=== PATIENT | female | born 1935 | race Caucasian/White ===

== ENCOUNTER → 2016-07-18 | Outpatient (CLI) | payer MEDICARE, OTHER ==
[~2016-07-18] MED LIST: AMIODARONE; BIMA2.5D4 OP; CEPH500C PO; DILT120C10 PO; DRON400T2 PO; HYDR-757 PO; LISI5TAB PO; PHEN100T17 PO; TRM50T PO; WRF5T PO
--- OUTSIDE RECORDS SUMMARY | 2016-07-18 10:29 | XMS REPORT | Continuity of Care Document ---
Author Author [facility] Organization [facility] Address Unknown Phone Unavailable Care Team Providers Care Senior Cytogenetic Technologist Name Role Phone Kwadwo Martinez PCP [phone] Source Comments Some departments are not documenting in the electronic medical record. If you do not see the information that you expected, contact Release of Information in the Health Information Management department at [phone] for further assistance in locating additional records.[facility] Active Allergies and Adverse Reactions Allergen Noted Date Severity Reactions Comments Demerol 08/24/2008 VOMITING Tetanus Vaccines And 08/24/2008 Reacted to skin test Toxoid Current Medications Prescription Sig. Disp. Refills Start End Date Status Date lisinopril (PRINIVIL; Take 5 mg by mouth twice Active ZESTRIL) 5 mg PO tablet daily. bimatoprost(+) (LUMIGAN) Insert or Apply 1 Drop to Active 0.03 % OP Drop right eye as directed at bedtime daily. warfarin (COUMADIN) 5 mg Take 5 mg by mouth daily. Active tablet diltiazem CD (CARDIZEM Take 120 mg by mouth Active CD) 120 mg capsule daily. dronedarone (MULTAQ) 400 Take 1 Tab by mouth twice 12 Tab 0 05/24/20 Active mg tablet daily with meals. 12 Active Problems Problem Noted Date Chronic anticoagulation 05/10/2012 Sleep apnea, obstructive 05/04/2012 Overview: 04-22-2012 Sleep study: Cardiac: The ECG was sinus may. The average HR while asleep was 57. She did exhibit paroxysmal narrow complex tachycardia. OSAS with positive sleep study. Obstructive sleep apnea on CPAP 05/04/2012 Overview: Sleep Study in [place] on 04/16/12 and report sent to us and Impression was: "moderate obstructive sleep apnea, CPAP was initiated.... Uterine prolapse 08/11/2011 Coronary artery disease (CAD) excluded 04/23/2010 Overview: 06/19--No significant CAD per report from Cardiac Cath by Dr. Lozoya -normal LVEF 65%, normal LVEDP LV function-normal a. 05/20 resting echo: Normal global LV systolic function. EF 50-55%. RBBB (right bundle branch block with left anterior fascicular block) 2009 Overview: Baseline right bundle branch block, left anterior bre-block with full P-R interval. Sinus bradycardia 04/23/2010 Overview: -aSxic Sinus Bradycardia Near-syncope 08/24/2008 Overview: Near syncope a. Episodes of near passing out -- concern for sinus node dysfunction versus AV block given baseline conduction disease and sinus bradycardia reported. b. 06/19 Holter monitor. No episodes of bradycardia c. 05/20 carotid Doppler: Minimal right atherosclerotic plaque without significant stenosis d. Carotid sinus massage by Drs. Lozoya and [place]: Both negative. e. 08/24/08 implantable looping recorder.Confirm ILR implanted. Continue to monitor. Sensitivity adjusted 09/18. 05/20 nonobstructive Carotid artery disease by carotid duplex. L ast Assessment & Plan: The patient denies any recent syncope. She tells me she has had dizzy spells all her life. We will continue to watch her carefully. Basal Cell Carcinoma of Skin HTN (hypertension) PAF (paroxysmal atrial fibrillation) (HCC) Overview: 1. Paroxysmal atrial fibrillation with RVR a. 06/19 event looping monitor triggered event. Went to ED and found in AFIB with RVR. Admit to ICU. b. Refuses Coumadin. (Patient has CHADS score of 2, therefore Coumadin recommended.) c. Taking enteric-coated aspirin. d. Pill in pocket with Cardizem CD 120 mg for heart rate greater than 120. e. 08/24/[address] [place] ILR implanted. Will continue to monitor for recurrent events. 2010 CHADS2 score of 2 L ast Assessment & Plan: She has had no further atrial fibrillation by symptoms or ILR check. I talked to her at length about atrial fibrillation and her CHADS2 score. Mrs. Day feels strongly she can feel her AF. Therefore, she doesn't feel anticoagulation is necessary at this point. We will continue to monitor her closely. Resolved Problems Problem Noted Date Resolved Date PAST MEDICAL HISTORY OF 03/26/2010 08/11/2011 Overview: Social History Tobacco Use Types Packs/Day Years Used Date Never Smoker Smokeless Tobacco: Never Used Alcohol Use Drinks/Week oz/Week Comments No Last Filed Vital Signs Vital Sign Reading Time Taken Blood Pressure 130/51 05/10/2012 1:41 PM CDT Pulse 66 05/10/2012 1:41 PM CDT Temperature 36.4 C (97.5 F) 05/10/2012 1:41 PM CDT Respiratory Rate - - Height 1.727 m (5' 8") 05/10/2012 8:15 AM CDT Weight 83.6 kg (184 lb 4.9 oz) 05/10/2012 8:15 AM CDT Body Mass Index 28.03 05/10/2012 8:15 AM CDT Oxygen Saturation 100% 05/10/2012 1:41 PM CDT Plan of Care Health Maintenance Due Date Last Done Comments Physical (Comprehensive) 1940 Exam Pertussis Vaccine 1944 Tetanus Vaccine 1950 Breast Cancer Screening 1973 Shingles Vaccine 1993 Osteoporosis Screening 1998 Prevnar/Pneumovax (#1) 1998 Influenza Vaccine 03/13/2015 Results from Last 3 Months Not on file
--- NOTE | 2016-07-18 11:37 | Diagnostic Imaging Report ---
PROCEDURE: MRI lumbar spine. TECHNIQUE: Multiplanar, multisequence MRI of the lumbar spine was performed without contrast. INDICATION: Right foot pain. FINDINGS: There is grade 1 spondylolisthesis of L4 over L5. The alignment of the posterior spinal line otherwise is satisfactory. There is fusion of L5 and S1 vertebra seen with pre-existing disc height loss at the intervertebral space suggested. There is a rudimentary disc between S1 and S2. There is no compression fracture. There is disc desiccation at all levels. There is moderate disc height loss at L3/4 and mild disc height loss at L4/5. There is no suspicious marrow signal abnormality. Mild marrow signal edema and adjacent soft tissue edema is seen around L4/5 facet joints bilaterally and appears to be secondary to degenerative changes. The cauda equina and conus medullaris appear grossly unremarkable. T12/L1: There is no disc herniation. There is mild facet hypertrophy. No spinal canal or foraminal stenosis. L1/2: No disc herniation. There is mild facet hypertrophy. No central canal, lateral recess or foraminal stenosis is seen. The right foramen demonstrates a 4 mm perineural cyst. L2/3: There is no significant disc herniation. There is mild facet hypertrophy. There is no central canal, lateral recess or foraminal stenosis however. L3/4: There is a mild diffuse disc bulge and moderate facet arthropathy bilaterally. There is no central canal stenosis and no significant stenosis in the lateral recess on either side. No foraminal stenosis. L4/5: There is a minimal disc bulge, grade 1 spondylolisthesis and moderate to severe facet arthropathy seen. There is central canal stenosis reducing the AP dimension of the canal to 8.5 mm and there is mild blunting of the lateral recess bilaterally. The neural foramina demonstrate minimal narrowing on both sides. L5/S1: Fused level demonstrates no remaining osteophytes or disc fragment identified. No central canal or lateral recess stenosis. No foraminal stenosis. At this level, there is suggestion of bilateral limited hemilaminectomy. IMPRESSION: There is grade 1 spondylolisthesis of L4 over L5 with prominent facet arthropathy bilaterally resulting in mild spinal canal stenosis. Dictated by: Dictated on workstation # [id number]
== END ==
LOC: RAD 10:26
PROVIDERS: ATTEND Orthopaedic Surgery
DX: M54.16 Radiculopathy, lumbar region (principal); M43.16 Spondylolisthesis, lumbar region
CPT/HCPCS: 72148

== ENCOUNTER → 2016-08-11 | Outpatient (CLI) | payer MEDICARE, OTHER ==
--- OUTSIDE RECORDS SUMMARY | 2016-08-11 15:04 | XMS REPORT | Continuity of Care Document ---
Author Author [facility] Organization [facility] Address Unknown Phone Unavailable Care Team Providers Care Manager Unix Name Role Phone Kwadwo Martinez PCP [phone] Source Comments Some departments are not documenting in the electronic medical record. If you do not see the information that you expected, contact Release of Information in the Health Information Management department at [phone] for further assistance in locating additional records.[facility] Active Allergies and Adverse Reactions Allergen Noted [...] on CPAP 05/04/2012 Overview: Sleep Study in [place], [place] on 04/16/12 and report sent to [...]
--- NOTE | 2016-08-14 12:26 | ECHOCARDIOGRAPHY REPORT ---
PROCEDURE PHYSICIAN: MAKI LOZOYA DATE OF PROCEDURE: 08/11/2016 TWO DIMENSIONAL ECHOCARDIOGRAM REPORT PRIMARY PHYSICIAN: Dr. Martinez OTHER PHYSICIAN: REFERRING PHYSICIAN: ORDERING PHYSICIAN: Dr. Lozoya INDICATION FOR THE PROCEDURE: Paroxysmal atrial fibrillation, sleep apnea, aortic valve sclerosis MEASUREMENTS DERIVED VALUES LV DIAMETER (LAX) NORMALS NORMALS Diastolic 4.6 (3.6-5.2) Eject. Fract. (60%+/-6%) Systolic (2.3-3.9) Diastolic Vol. % Shortening (0.22-0.42) Systolic Vol. Aortic Root 3. IVS THICKNESS Diastolic 1.2 (0.6-1.1) LVPW THICKNESS Diastolic 1.2 (0.6-1.1) LA DIAMETER Systolic 3.3 (2.1-3.7) DESCRIPTION: 2-dimensional echocardiography shows normal global left ventricular systolic function with normal wall motion. The aortic, mitral and tricuspid valve leaflets show good leaflet excursion. There is mild aortic valve sclerosis and calcification. The aortic valve leaflets show good leaflet excursion. Doppler imaging shows mild tricuspid regurgitation. Pulmonary systolic pressure is estimated to be approximately 40 to 45 mmHg. Peak pressure gradient across the aortic valve is approximately 22 mmHg with a mean gradient of 13 mmHg and the aortic valve area is calculated to be approximately 3 sq cm. Mitral inflow is suggestive of diastolic dysfunction of the left ventricle, grade 1. There is no evidence of significant intracardiac shunt on this transthoracic echocardiographic study. Inferior vena cava does not appear to be significantly dilated and does have intermittent inspiratory collapse. CONCLUSION: 1. Normal global left ventricular systolic function with an ejection fraction of approximately 65 to 70%. 2. Aortic valve sclerosis, mild, without evidence of significant valvular stenosis. 3. Mild tricuspid regurgitation. 4. Pulmonary artery systolic pressure estimated to be approximately 40 to 45 mmHg. 5. Mild diastolic dysfunction of the left ventricle. Job ID: [id number] Dictated Date: 08/14/2016 09:22:21 Weight Engineer Date: 08/14/2016 12:17:08 / samina
== END ==
LOC: CARD 15:01
PROVIDERS: ATTEND Internal Medicine Cardiovascular Disease
DX: I48.0 Paroxysmal atrial fibrillation (principal); G47.33 Obstructive sleep apnea (adult) (pediatric); I35.8 Other nonrheumatic aortic valve disorders; M54.5 Low back pain
CPT/HCPCS: 93306

== ENCOUNTER → 2017-02-26 | Outpatient (CLI) | payer MEDICARE, OTHER | LOC: RAD 10:07 | PROVIDERS: ATTEND Internal Medicine | DX: Z12.31 Encounter for screening mammogram for malignant neoplasm of breast (principal) | CPT/HCPCS: 77067 ==

== ENCOUNTER → 2017-07-17 | Outpatient (CLI) | payer MEDICARE, OTHER ==
[2017-07-17 10:41] LABS: BUN/CREATININE RATIO 31; CARBON DIOXIDE 24 MMOL/L (21-32); CHLORIDE 107 MMOL/L (98-107); CREATININE SERUM 0.86 MG/DL (0.60-1.30); GFR ESTIMATED > 60; GLUCOSE 103 MG/DL (70-105); POTASSIUM 4.2 MMOL/L (3.6-5.0); SODIUM 141 MMOL/L (135-145)
[2017-07-17] MEDS: NS 100 ML (IVPB) BAG IV ONE (11:16)
[2017-07-17] MEDS: CATHETER FLUSH 10 ML SYR IV PRN (11:16)
[2017-07-17] MEDS: IOHEXOL 350 MG/ML 100 ML (OMNIPAQUE 350) VIAL IV ONE (11:16)
--- NOTE | 2017-07-17 13:32 | Diagnostic Imaging Report ---
INDICATION: Evaluation for aortic aneurysm with known atherosclerotic disease. TECHNIQUE: Bolus IV contrast injection with angiographic technique was utilized. 2D and 3D MIP reconstruction was performed. FINDINGS: There is rib deformity laterally in the left lower chest with adjacent scarring. This was present on previous chest CT of 04/21/2016. There is good bolus enhancement of the aorta. Abdominal vessels enhance in a normal fashion. The proximal abdominal aorta measures 1.9 cm in diameter. The distal abdominal aorta measures 1.3 cm. There is scattered atherosclerotic disease throughout. There is no aortic dissection. 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 SMA shows mild atherosclerotic changes with stenosis of less than 50%. The inferior mesenteric artery shows atherosclerotic changes at the takeoff without significant stenosis. The liver shows a cyst measuring 2.7 cm in the midportion of the right lobe and a cyst in the left lobe measuring 8 mm. These are unchanged since previous CT chest exam. There are multiple faceted gallstones. Gallbladder is not dilated. Gallbladder wall is not thickened. Bile ducts appear normal. Pancreas is atrophic. The spleen is normal. The adrenal glands are normal. Kidneys appear normal. There is a cyst off the lower pole of the right kidney which is benign in nature measuring 1.5 cm. There are no calculi. No intra-abdominal adenopathy. The stomach and small bowel are not distended. The colon shows normal stool and gas pattern, where visualized. IMPRESSION: 1. Atherosclerotic changes of the aorta without evidence of aneurysm or dissection. 2. 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 3. Benign-appearing cyst in the liver, unchanged since previous CT chest. Also, old healed rib deformities on the left with adjacent pleural scarring in the left lung are stable. Dictated by: Dictated on workstation # [id number]
== END ==
LOC: RAD 09:45
PROVIDERS: ATTEND Nurse Practitioner Family
DX: I77.4 Celiac artery compression syndrome (principal); I70.0 Atherosclerosis of aorta; J98.4 Other disorders of lung; K76.89 Other specified diseases of liver; Z87.39 Personal history of other diseases of the musculoskeletal system and connective tissue
CPT/HCPCS: 36415; 74175; 80048

== ENCOUNTER → 2017-08-17 | Outpatient (CLI) | payer MEDICARE, OTHER ==
--- NOTE | 2017-08-17 15:02 | Diagnostic Imaging Report ---
EXAMINATION: Magnetic resonance imaging of the right ankle without contrast. DATE: August 17, 2017. COMPARISON: Right ankle radiographs October 22, 2015. INDICATION: 82-year-old female, right ankle pain. History of twisting injury 2 years ago. TECHNIQUE: Magnetic Resonance Imaging sequences were performed of the ankle without contrast. FINDINGS: TENDONS AND LIGAMENTS: The Achilles tendon is unremarkable. The posterior flexor tendons - tibialis posterior, flexor digitorum longus, flexor hallucis longus - are intact. The peroneal tendons - peroneus longus and peroneus brevis - are intact. The anterior extensor tendons - tibialis anterior, extensor hallucis longus and extensor digitorum longus tendons - are intact. The anterior and posterior syndesmotic ligaments are intact. The anterior talofibular, posterior talofibular, and calcaneofibular ligaments are intact. There are well-corticated areas of ossification in the distribution of the deep deltoid ligament complex compatible with sequela of remote prior injury. There is no identified tear of the deep deltoid ligament. The plantar fascia is intact. JOINTS: There is no tibiotalar joint effusion. There is a small posterior subtalar joint effusion. There is loss of normal fat attenuation within the sinus tarsi. There are prominent subcortical cystic changes adjacent to the sinus tarsi within the talus and calcaneus with adjacent prominent bone marrow edema. This is likely arthritic related. The individual ligaments within the sinus tarsi are difficult to identify. BONE: There is no acute fracture. There is no evidence of bone contusion or osteonecrosis. The talar dome is intact. BURSAE AND SOFT TISSUES: There is mild nonspecific lateral subcutaneous edema and edema in the pre-Achilles fat. There is diffuse fatty atrophy of the visualized musculature. IMPRESSION: 1. Loss of normal fat attenuation throughout the sinus tarsi with indistinct sinus tarsi ligaments. 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 2. Extensive degenerative-related marrow changes adjacent to the sinus tarsi. 3. Small posterior subtalar joint effusion. 4. Well-corticated areas of ossification in the distribution of the deep deltoid ligament compatible with sequela of remote prior injury. The deltoid ligament complex is otherwise intact. Intact low lateral ankle ligament complex and syndesmotic ligaments. 5. No acute fracture. Intact talar dome. 6. Intact tendons. 7. Diffuse fatty atrophy of the visualized musculature. This may potentially reflect polyneuropathy. Dictated by: Dictated on workstation # [id number]
== END ==
LOC: RAD 13:05
PROVIDERS: ATTEND Podiatrist Foot & Ankle Surgery
DX: S93.601A Unspecified sprain of right foot, initial encounter (principal); M67.873 Other specified disorders of tendon, right ankle and foot; M62.571 Muscle wasting and atrophy, not elsewhere classified, right ankle and foot; M19.071 Primary osteoarthritis, right ankle and foot; M76.61 Achilles tendinitis, right leg; Z87.828 Personal history of other (healed) physical injury and trauma
CPT/HCPCS: 73721

== ENCOUNTER 2017-10-22 05:35 | Outpatient (CLI) | payer MEDICARE, OTHER ==
[~2017-10-22] VITALS: Ht 172.7 cm; Wt 90.7 kg
[2017-10-22] MEDS ORDERED: WARF5TAB PO (10:23)
[2017-10-22] MEDS ORDERED: LISI-556 PO (10:23)
[2017-10-22] MEDS ORDERED: DILT180C90 PO (10:23)
[2017-10-22] MEDS ORDERED: BIMA2.5D4 OP (10:23)
== END 2017-10-22 10:29 ==
LOC: PREOP 05:35
PROVIDERS: ATTEND Surgery
DX: Z01.818 Encounter for other preprocedural examination (principal); Z12.11 Encounter for screening for malignant neoplasm of colon; Z80.0 Family history of malignant neoplasm of digestive organs

== ENCOUNTER 2017-10-30 11:22 | Day surgery (SDC) | payer MEDICARE, OTHER ==
[~2017-10-30] VITALS: Ht 172.7 cm; Wt 90.7 kg
[~2017-10-30 11:22] MED LIST changes: +DILT180C90 PO; +LISI-556 PO; +WARF5TAB PO
[2017-10-30] MEDS ORDERED: NS IV 500 ML 500 ML ONE (11:28)
[2017-10-30] MEDS ORDERED: NS IV 500 ML 500 ML IV PRN (11:54)
[2017-10-30 11:59] VITALS: BP 135/50
[2017-10-30] MEDS ORDERED: HURRICAINE EXT TUBE (BENZOCAINE) XX PRN (12:00)
[2017-10-30] MEDS ORDERED: LIDOCAINE JELLY 2% (XYLOCAINE) 5 ML TUBE MM PRN (12:00)
--- NOTE | 2017-10-30 12:18 | Progress Note-Pre Operative ---
Pre-Operative Progress Note H&P Reviewed The H&P was reviewed, patient examined and no changes noted. Date Seen by Provider: Oct 30, 2017 Time Seen by Provider: 11: Date H&P Reviewed: Oct 30, 2017 Time H&P Reviewed: :30 Pre-Operative Diagnosis: GERD, screening colonoscopy DEIDRA LORD MD Oct 30, 2017 12:18 pm
--- NOTE | 2017-10-30 12:18 | Conscious Sedation/ASA ---
Conscious Sedation Pre-Proced Time Reviewed: 11:30 ASA Class: 2 Airway Mallampati Classification: ([place] appropriate class) I. II. III, IV Lungs Heart ASA score ASA 1: a normal healthy patient ASA 2: a patient with a mild systemic disease (mid diabetes, controlled hypertension, obesity ASA 3: a patient with a severe systemic disease that limits activity (angina , COPD, prior Myocardial infarction) ASA 4: a patient with an incapacitating disease that is a constant threat to life (CHF, renal failure) ASA 5: a moribund patient not expected to survive 24 hrs. (ruptured aneurysm) ASA 6: a declared brain patient whose organs are being harvested. For emergent operations, add the letter E after the classification Grade 2 Sedation Plan: Analgesia, Amnesia, Plan communicated to team members, Discussed options with patient/fam, Discussed risks with patient/fam Note The patient is an appropriate candidate to undergo the planned procedure, sedation, and anesthesia. The patient immediately re-assessed prior to indication. DEIDRA LORD MD Oct 30, 2017 12:17 pm
[2017-10-30] MEDS ORDERED: HYDROcodone/APAP 5 MG/325 MG (LORTAB) TAB PO PRN (12:30)
[2017-10-30] MEDS ORDERED: ONDANSETRON 4 MG/2 ML (SDV) Z0FRAN IV PRN (12:30)
[2017-10-30] MEDS ORDERED: ACETAMINOPHEN 325 MG TABLET/CAPLET (TYLENOL) PO PRN (12:30)
[2017-10-30] MEDS ORDERED: morphine INJ 10 MG/ML 1ML (SYR OR VIAL) IV PRN (12:30)
[2017-10-30] MEDS ORDERED: fentaNYL INJECTION 100 MCG/2 ML AMP ONE (12:34)
[2017-10-30] MEDS ORDERED: MIDAZOLAM 2 MG/2 ML (VERSED) VIAL ONE ×4 (12:34)
[2017-10-30] MEDS ORDERED: LIDOCAINE JELLY 2% (XYLOCAINE) 5 ML TUBE ONE (12:35)
[2017-10-30] MEDS ORDERED: HURRICAINE EXT TUBE (BENZOCAINE) ONE (12:35)
[2017-10-30] MEDS: fentaNYL INJECTION 100 MCG/2 ML AMP IVP PRN ×2 (12:55→13:45)
[2017-10-30] MEDS: MIDAZOLAM 2 MG/2 ML (VERSED) VIAL IVP PRN ×4 (13:00→13:40)
--- NOTE | 2017-10-30 14:07 | Progress Note-Post Operative ---
Post-Operative Progess Note Surgeon (s)/Environmental Sampling Technician (s) Surgeon DEIDRA LORD MD Environmental Sampling Technician: none Pre-Operative Diagnosis GERD, screening colonoscopy Post-Operative Diagnosis distal esophageal stricture, reflux esophagitis(class B), no recurrent HH, mild gastritis. chronic stage 2 ext and int hemorrhoids. Procedure & Operative Findings Date of Procedure 10/30/17 Procedure Performed/Findings EGD with bx and balloon dilatation. chronic stage 2 ext and int hemorrhoids. Anesthesia Type CS Estimated Blood Loss Estimated blood loss (mL): minimal Specimens/Packing Specimens Removed GE jxn, antrum DEIDRA LORD MD Oct 30, 2017 2:07 pm
--- NOTE | 2017-10-30 14:08 | Discharge Inst-Surgical ---
D/C Lap Instructions-POP Follow Up 5 yrs or PRN Activity as tolerated High Fiber Diet 25g or more per day Avoid Alcohol, Caffeine, Spicy [place] and Acid foods. Drink 64 fluid oz or more of fluids per day. Symptoms to Report: Fever over 101 degree F, Nausea/Vomiting If any problems/questions: Contact your physician or go to Emergency Room DEIDRA LORD MD Oct 30, 2017 2:08 pm
[2017-10-30 14:10] VITALS: BP 131/60
[2017-10-30 14:49] VITALS: BP 130/67
[2017-10-30 14:54] VITALS: BP 130/67
--- NOTE | 2017-10-30 23:45 | OPERATIVE REPORT ---
DATE OF SERVICE: 10/30/2017 ATTENDING PRIMARY CARE PHYSICIAN: Dr. Martinez. PREOPERATIVE DIAGNOSES: Dysphagia, history of gastroesophageal reflux disease, screening colonoscopy with a family history of colon cancer. POSTOPERATIVE DIAGNOSES: Distal esophageal stricture, reflux esophagitis class B, no recurrent hiatal hernia, mild gastritis, chronic stage II external and internal hemorrhoids. Remainder of the rectum and colon were normal. PROCEDURE: EGD with biopsy and balloon dilatation. Colonoscopy. SURGEON: Dr. Lord. ANESTHESIA: Conscious sedation. ESTIMATED BLOOD LOSS: Minimal. FINDINGS: EGD, distal esophageal stricture, reflux esophagitis class B, no recurrent hiatal hernia, mild gastritis. Colonoscopy, chronic stage II external and internal hemorrhoids, not actively edematous or inflamed and no bleeding. The rectum and colon were normal and no polyps identified. DISPOSITION: The patient tolerated the procedure well. INDICATIONS: The patient is an 82-year-old female known to us. She was initially seen in 2013 for screening colonoscopy and family history of colon cancer. She was found to have moderate external and internal hemorrhoids; however, no other abnormalities. She is in need of a followup colonoscopy. She states for the most part she is doing well however, has had some constipation which is worse in the past few months. She also has had an issue with dysphagia which comes and goes. She reports that this has bothered her recently. She has undergone a hiatal hernia repair as well as previous balloon dilatations from an esophageal stricture. She reports that now she is symptomatic and does have dysphagia with epigastric fullness sensation as well as pressure. The patient was brought to the endoscopy suite, laid in the left lateral decubitus position. After adequate IV pain and sedative medications and conscious sedation anesthesia, the mouthpiece was applied. Endoscope was placed in the mouth, visualizing the pharynx and hypopharyngeal region. Vocal cords, epiglottis and vallecula identified and appeared to be normal. The endoscope was then gently intubated at the esophageal opening. Esophagus insufflated. Endoscope was then advanced to the first, second and third portions of the esophagus at the level of the GE junction, a reflux esophagitis class B identified. There were no ulcers or strictures identified in this region. There were no ulcers identified; however, there was a distal esophageal stricture identified. A biopsy was taken of the GE junction with forceps with visualization of good hemostasis. The endoscope was then advanced into the stomach and endoscope retroflexed visualizing no recurrent hiatal hernia with what appears to be an intact previous antireflux procedure. There was a mild gastritis, no ulcers, polyps or any neoplasms throughout the stomach or pylorus. A biopsy was taken of the stomach antrum for H. pylori with visualization of good hemostasis. Endoscope was then advanced to the pylorus and the first and second portion of the duodenum, which appeared normal with no distal obstructions. We then proceeded with dilatation of the distal esophageal stricture. A CRE fixed guidewire balloon was placed into the stomach and then pulled back to the area of the stricture. We first proceeded with 3 atmospheres of pressure with mild resistance. We then proceeded to 4 atmospheres of pressure with moderate resistance, which was approximately 18 to 19 mm in luminal diameter. We left this in place for approximately 60 seconds and then desufflated the balloon. Good hemostasis was observed as well as no mucosal tears. Endoscope was then slowly withdrawn while taking a second look and suctioning of residual air with no additional findings. The patient tolerated this portion of the procedure well. We will recommend continued medical management with small and more frequent meals, avoidance of eating at night as well as head elevation while lying supine. She also needs to avoid caffeinated beverages, spicy, greasy and acidic foods. Under the same conscious sedation anesthesia, we then proceeded with colonoscopy portion of the procedure. A digital rectal examination was performed which revealed stage II chronic external and internal hemorrhoids, not actively edematous nor inflamed and no bleeding. Normal sphincter tone was felt and there were no palpable masses. The endoscope was then intubated to the anus, rectum gently insufflated. The endoscope was then advanced to the [facility] in the rectum with no polyps or any neoplasms identified. We then proceeded through the sigmoid colon where no diverticulosis identified. The endoscope was then advanced to the remainder of the descending, transverse and ascending colon to the cecum. These segments were normal. There were no polyps or any neoplasms identified throughout the colon or rectum. The endoscope was then slowly withdrawn while taking a second look and suctioning of residual air with no additional findings. The patient tolerated the procedure well. We will recommend a high fiber diet with at least 25 grams of fiber per day to promote soft stools on a daily basis and prevent constipation. We will recommend a followup colonoscopy in 5 years. Job ID: [id number] DocumentID: [id number] Dictated Date: 10/30/2017 14:03:58 Radial Drill Press Operator For Plastic Date: 10/30/2017 23:44:41 Dictated By: DEIDRA LORD MD
== END 2017-10-30 14:55 | disposition home or self-care (01) ==
LOC: ENDO 11:22
PROVIDERS: ATTEND Surgery
DX: Z12.11 Encounter for screening for malignant neoplasm of colon (principal); K64.1 Second degree hemorrhoids; K22.2 Esophageal obstruction; K21.0 Gastro-esophageal reflux disease with esophagitis; K29.70 Gastritis, unspecified, without bleeding; Z80.0 Family history of malignant neoplasm of digestive organs; K59.00 Constipation, unspecified; I48.91 Unspecified atrial fibrillation; I10 Essential (primary) hypertension; G47.30 Sleep apnea, unspecified; Z79.01 Long term (current) use of anticoagulants; Z79.899 Other long term (current) drug therapy
CPT/HCPCS: 43239; 43249; G0105

== ENCOUNTER 2018-03-05 13:32 | Outpatient (RCR) | payer MEDICARE, OTHER ==
[~2018-03-05 13:32] MED LIST changes: +BIMA2.5D4 OD; +HYDR-4226 PO; -HYDR-757 PO
[2018-03-22] MEDS ORDERED: WARF-48 PO (08:54)
[2018-03-22] MEDS ORDERED: DILT180C54 PO (08:54)
[2018-03-22] MEDS ORDERED: MULT-985 PO (08:56)
[2018-03-22] MEDS ORDERED: MECL-106 PO (13:42)
== END 2018-04-08 11:10 | disposition home or self-care (01) ==
PROVIDERS: ATTEND Podiatrist Foot & Ankle Surgery
DX: M19.071 Primary osteoarthritis, right ankle and foot (principal); G57.51 Tarsal tunnel syndrome, right lower limb

== ENCOUNTER 2018-03-20 08:22 | Observation (INO) | payer MEDICARE, OTHER ==
[~2018-03-20] VITALS: Ht 172.7 cm; Wt 89.4 kg
[2018-03-20 09:00] LABS: BASOPHILS % (AUTO) 0 % (0-10); EOSINOPHILS # (AUTO) 0.2 10^3/uL (0.0-0.3); EOSINOPHILS % (AUTO) 3 % (0-10); HEMATOCRIT 38 % (35-52); HEMOGLOBIN 12.7 G/DL (11.5-16.0); LYMPHOCYTES # (AUTO) 0.9 X 10^3 (1.0-4.0); LYMPHOCYTES % (AUTO) 16 % (12-44); MEAN CORPUSCULAR HEMOGLOBIN 29 PG (25-34); MEAN CORPUSCULAR HGB CONC 33 G/DL (32-36); MEAN CORPUSCULAR VOLUME 88 FL (80-99); MEAN PLATELET VOLUME 11.6 FL (7.4-10.4); MONOCYTES # (AUTO) 0.4 X 10^3 (0.0-1.0); MONOCYTES % (AUTO) 7 % (0-12); NEUTROPHILS # (AUTO) 4.4 X 10^3 (1.8-7.8); NEUTROPHILS % (AUTO) 74 % (42-75); PLATELET COUNT 164 10^3/uL (130-400); RED BLOOD COUNT 4.35 10^6/uL (4.35-5.85); RED CELL DISTRIBUTION WIDTH 13.7 % (10.0-14.5); WHITE BLOOD COUNT 5.9 10^3/uL (4.3-11.0)
[2018-03-20 09:17] LABS: ALANINE AMINOTRANSFERASE 14 U/L (0-55); ALBUMIN 3.9 GM/DL (3.2-4.5); ALKALINE PHOSPHATASE 82 U/L (40-136); BILIRUBIN,TOTAL 0.8 MG/DL (0.1-1.0); BUN/CREATININE RATIO 34; CALCIUM 9.2 MG/DL (8.5-10.1); CARBON DIOXIDE 22 MMOL/L (21-32); CHLORIDE 111 MMOL/L (98-107); GFR ESTIMATED > 60; GLUCOSE 109 MG/DL (70-105); SODIUM 142 MMOL/L (135-145); TOTAL PROTEIN 6.9 GM/DL (6.4-8.2)
[2018-03-20] MEDS ORDERED: ONDANSETRON 4 MG/2 ML (SDV) Z0FRAN IVP ONE (10:15)
[2018-03-20 10:17] LABS: BILIRUBIN,URINE NEGATIVE (NEGATIVE); CLARITY,URINE CLEAR; COLOR,URINE YELLOW; GLUCOSE, URINE (UA) NEGATIVE (NEGATIVE); KETONES,URINE NEGATIVE (NEGATIVE); LEUKOCYTE ESTERASE ,URINE NEGATIVE (NEGATIVE); NITRITE,URINE NEGATIVE (NEGATIVE); PH,URINE 5 (5-9); PROTEIN,URINE NEGATIVE (NEGATIVE); UROBILINOGEN,URINE NORMAL (NORMAL)
[2018-03-20] MEDS: NS IV 1000 ML 1,000 ML IV SCH ×2 (10:18→20:26)
[2018-03-20 10:31] LABS: BACTERIA,URINE NEGATIVE /HPF; SQUAMOUS EPITHELIAL CELL,UR RARE /HPF
--- NOTE | 2018-03-20 11:05 | ED General ---
General Chief Complaint: Dizziness/Syncope Stated Complaint: DIZZY/NAUSEA Nursing Triage Note: ARRIVED VIA WC TO ROOM 05. STATES SHE WOKE UP THIS AM WITH DIZZINESS ET NAUSEA AT 0600 THIS AM. STATES SHE WOKE UP AT 0100 AND WAS FINE THEN. Nursing Sepsis Screen: No Definite Risk Source of Information: Patient Exam Limitations: No Limitations History of Present Illness Date Seen by Provider: Mar 20, 2018 Time Seen by Provider: 11:04 Initial Comments The patient's an 82-year-old white female who was awakened at approximately 0600 this morning with a sense of terrible dizziness and nausea. She had difficulty sitting up and when she attempted to get to the commode she was very unsteady on her feet. This has persisted and she is continued to have nausea. She has chronic atrial fibrillation and takes Coumadin. She reports that her most recent INR was 4+. Allergies and Home Medications Allergies Coded Allergies: Tetanus Vaccines and Toxoid (Unverified Allergy, Unknown, 10/22/17) meperidine (Unverified Adverse Reaction, Mild, VOMITING, 10/22/17) Home Medications Bimatoprost 2.5 Ml Drops, 2.5 ML OP DAILY, (Reported) Diltiazem HCl 180 Mg Cap.er.24h, 180 MG PO DAILY, (Reported) Lisinopril 5 Mg Tablet, 10 MG PO DAILY, (Reported) Warfarin Sodium 5 Mg Tablet, 5 MG PO DAILY, (Reported) Patient Home Medication List Home Medication List Reviewed: Yes Review of Systems Review of Systems Constitutional: see HPI EENTM: no symptoms reported Respiratory: no symptoms reported Cardiovascular: no symptoms reported Gastrointestinal: no symptoms reported Genitourinary: no symptoms reported Musculoskeletal: no symptoms reported Skin: no symptoms reported Psychiatric/Neurological: No Symptoms Reported Hematologic/Lymphatic: No Symptoms Reported Immunological/Allergic: no symptoms reported Past Xhqcoww-Kzntuz-Vhxxlr Hx Patient Social History Alcohol Use: Denies Use Recreational Drug Use: No Smoking Status: Never a Smoker Recent Foreign Travel: No Contact w/Someone Who Travel: No Recent Infectious Disease Expo: No Recent Hopitalizations: No Immunizations Up To Date Date of Pneumonia Vaccine: Aug 21, 2009 Seasonal Allergies Seasonal Allergies: No Past Medical History Surgeries: Yes (carpel tunnel, hiatal hernia, skin ca removed, implanted recorder for heart) Hysterectomy, Orthopedic Respiratory: Yes Sleep Apnea Currently Using CPAP: Yes Cardiac: Yes Atrial Fibrillation, Hypertension Neurological: No Reproductive Disorders: No Sexually Transmitted Disease: No HIV/AIDS: No UTI-Chronic Gastrointestinal: Yes Chronic Constipation Musculoskeletal: Yes (MILD) Arthritis Endocrine: No Loss of Vision: Bilateral Cancer: Yes Skin What Type of Treatment Did You: Surgical Intervention Psychosocial: No Integumentary: Yes Psoriasis Blood Disorders: No Adverse Reaction/Blood Tranf: No (HAS HAD BLOOD WITH NO REACTION) Physical Exam Vital Signs Vital Signs - First Documented 03/20/18 08:38 Temp 98.0 Pulse 70 Resp 16 B/P (MAP) 190/70 (110) Pulse Ox 96 O2 Delivery Room Air Capillary Refill : Less Than 3 Seconds Height, Weight, BMI Height: 5'8.00" Weight: 197lbs. 0.0oz. 89.837516gr; 30.4 BMI Method:Stated General Appearance: No Apparent Distress, WD/WN Eyes: Bilateral Eye Normal Inspection HEENT: Normal ENT Inspection Neck: Normal Inspection Respiratory: Chest Non Tender, Lungs Clear, Normal Breath Sounds, No Accessory Muscle Use, No Respiratory Distress Cardiovascular: Irregularly Irregular Gastrointestinal: Normal Bowel Sounds Back: Normal Inspection, No CVA Tenderness, No Vertebral Tenderness Extremity: Normal Capillary Refill, Normal Inspection, Normal Range of Motion, Non Tender, No Calf Tenderness, No Pedal Edema Neurologic/Psychiatric: Alert, Other Skin: Normal Color, Warm/Dry Comments There appeared to be slight effacement of in the left nasolabial fold. She reports that she uses a CPAP mask and often has swelling in the morning. 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 The anesthesia technician and I attempted to walk her. She wobbled terribly upon standing and took 4 wobbly steps with our assistance. She was then returned to bed. Progress/Results/Core Measures Suspected Sepsis Recent Fever Within 48 Hours: No Infection Criteria Present: None New/Unexplained Altered Menta: No Sepsis Screen: No Definite Risk SIRS Temperature:98.0 Pulse: 70 Respiratory Rate: 16 Laboratory Tests 03/20/18 08:49: White Blood Count 5.9 Blood Pressure 190 /70 Mean: 110 Laboratory Tests 03/20/18 08:49: Creatinine 0.80, Platelet Count 164, Total Bilirubin 0.8 Results/Orders Lab Results Laboratory Tests Test 03/20/18 08:49 03/20/18 09:52 Range/Units White Blood Count 5.9 4.3-11.0 10^3/uL Red Blood Count 4.35 4.35-5.85 10^6/uL Hemoglobin 12.7 11.5-16.0 G/DL Hematocrit 38 35-52 % Mean Corpuscular Volume 88 80-99 FL Mean Corpuscular Hemoglobin 29 25-34 PG Mean Corpuscular Hemoglobin Concent 33 32-36 G/DL Red Cell Distribution Width 13.7 10.0-14.5 % Platelet Count 164 130-400 10^3/uL Mean Platelet Volume 11.6 H 7.4-10.4 FL Neutrophils (%) (Auto) 74 42-75 % Lymphocytes (%) (Auto) 16 12-44 % Monocytes (%) (Auto) 7 0-12 % Eosinophils (%) (Auto) 3 0-10 % Basophils (%) (Auto) 0 0-10 % Neutrophils # (Auto) 4.4 1.8-7.8 X 10^3 Lymphocytes # (Auto) 0.9 L 1.0-4.0 X 10^3 Monocytes # (Auto) 0.4 0.0-1.0 X 10^3 Eosinophils # (Auto) 0.2 0.0-0.3 10^3/uL Basophils # (Auto) 0.0 0.0-0.1 10^3/uL Sodium Level 142 135-145 MMOL/L Potassium Level 4.0 3.6-5.0 MMOL/L Chloride Level 111 H 98-107 MMOL/L Carbon Dioxide Level 22 21-32 MMOL/L Anion Gap 9 5-14 MMOL/L Blood Urea Nitrogen 27 H 7-18 MG/DL Creatinine 0.80 0.60-1.30 MG/DL Estimat Glomerular Filtration Rate > 60 BUN/Creatinine Ratio 34 Glucose Level 109 H 70-105 MG/DL Calcium Level 9.2 8.5-10.1 MG/DL Corrected Calcium 9.3 8.5-10.1 MG/DL Total Bilirubin 0.8 0.1-1.0 MG/DL Aspartate Amino Transf (AST/SGOT) 17 5-34 U/L Alanine Aminotransferase (ALT/SGPT) 14 0-55 U/L Alkaline Phosphatase 82 40-136 U/L Total Protein 6.9 6.4-8.2 GM/DL Albumin 3.9 3.2-4.5 GM/DL Urine Color YELLOW Urine Clarity CLEAR Urine pH 5 5-9 Urine Specific [place] 1.015 L 1.016-1.022 Urine Protein NEGATIVE NEGATIVE Urine Glucose (UA) NEGATIVE NEGATIVE Urine Ketones NEGATIVE NEGATIVE Urine Nitrite NEGATIVE NEGATIVE Urine Bilirubin NEGATIVE NEGATIVE Urine Urobilinogen NORMAL NORMAL MG/DL Urine Leukocyte Esterase NEGATIVE NEGATIVE Urine RBC (Auto) 4+ H NEGATIVE Urine RBC 10-25 H /HPF Urine WBC NONE /HPF Urine Squamous Epithelial Cells RARE /HPF Urine Crystals NONE /LPF Urine Bacteria NEGATIVE /HPF Urine Casts NONE /LPF Urine Mucus NEGATIVE /LPF Urine Culture Indicated NO My Orders Orders - JACKY MOLINA MD Cbc With Automated Diff (03/20/18 08:53) Comprehensive Metabolic Panel (03/20/18 08:53) Ua Culture If Indicated (03/20/18 08:53) Ns Iv 1000 Ml (Sodium Chloride 0.9%) (03/20/18 10:15) Ondansetron Injection (Zofran Injectio (03/20/18 10:15) Ct Angio Head/Neck (03/20/18 11:07) Iohexol Injection (Omnipaque 350 Mg/Ml 1 (03/20/18 11:15) Meclizine Tablet (Antivert Tablet) (03/20/18 12:00) Medications Given in ED Current Medications Medications Dose Ordered Sig/Wyatt Route Start Time Stop Time Status Last Admin Dose Admin Meclizine HCl 25 mg ONCE ONCE PO 03/20/18 12:00 03/20/18 12:01 DC 03/20/18 12:09 25 MG Ondansetron HCl 8 mg ONCE ONCE IVP 03/20/18 10:15 03/20/18 10:16 DC 03/20/18 10:18 8 MG Vital Signs/I&O 03/20/18 08:38 Temp 98.0 Pulse 70 Resp 16 B/P (MAP) 190/70 (110) Pulse Ox 96 O2 Delivery Room Air Capillary Refill : Less Than 3 Seconds Blood Pressure Mean: 110 Departure Communication (Admissions) NIH Stroke Scale 1. a. Level of Consciousness: Alert (0 Points) b. Patient Asked Current Month And Age: Answers Both Correctly (0 Points) c. Patient Asked To Open And Close Eyes: Obeys Both Correctly (0 Points) 2. Best Gaze: Normal (0 Points) 3. Visual Field Testing: No Visual Field Loss (0 Points) 4. Facial Paresis: Minor Paralysis (1 Points) 5. a. Motor Function - Left Arm: Normal (0 Points) b. Motor Function - Right Arm: Normal (0 Points) 6. a. Motor Function - Left Leg: Normal (0 Points) b. Motor Function - Right Leg: Normal (0 Points) 7. Limb Ataxia: No Ataxia (0 Points) 8. Sensory: Normal (0 Points) 9. Best Language: No Aphasia (0 Points) 10. Dysarthria: Mild to Moderate Slurring of Words (1 Points) 11. Extinction and Inattention: Normal (0 Points) Total: 2 NIH Stroke Scale 1. a. Level of Consciousness: Alert (0 Points) b. Patient Asked Current Month And Age: Answers Both Correctly (0 Points) c. Patient Asked To Open And Close Eyes: Obeys Both Correctly (0 Points) 2. Best Gaze: Normal (0 Points) 3. Visual Field Testing: No Visual Field Loss (0 Points) 4. Facial Paresis: Minor Paralysis (1 Points) 5. a. Motor Function - Left Arm: Normal (0 Points) b. Motor Function - Right Arm: Normal (0 Points) 6. a. Motor Function - Left Leg: Normal (0 Points) b. Motor Function - Right Leg: Normal (0 Points) 7. Limb Ataxia: No Ataxia (0 Points) 8. Sensory: Normal (0 Points) 9. Best Language: No Aphasia (0 Points) 10. Dysarthria: Mild to Moderate Slurring of Words (1 Points) 11. Extinction and Inattention: Normal (0 Points) Total: 2 NIH Stroke Scale 1. a. Level of Consciousness: Alert (0 Points) b. Patient Asked Current Month And Age: Answers Both Correctly (0 Points) c. Patient Asked To Open And Close Eyes: Obeys Both Correctly (0 Points) 2. Best Gaze: Normal (0 Points) 3. Visual Field Testing: No Visual Field Loss (0 Points) 4. Facial Paresis: Minor Paralysis (1 Points) 5. a. Motor Function - Left Arm: Normal (0 Points) b. Motor Function - Right Arm: Normal (0 Points) 6. a. Motor Function - Left Leg: Normal (0 Points) b. Motor Function - Right Leg: Normal (0 Points) 7. Limb Ataxia: No Ataxia (0 Points) 8. Sensory: Normal (0 Points) 9. Best Language: No Aphasia (0 Points) 10. Dysarthria: Mild to Moderate Slurring of Words (1 Points) 11. Extinction and Inattention: Normal (0 Points) Total: 2 CT angiography shows no evidence of posterior vascular abnormalities. The patient remains extremely wobbly and able unable to walk safely. She will be admitted admitted for observation because of her gait abnormality and safety Impression Primary Impression: vertigo Disposition: ADMITTED INPATIENT Condition: Stable/Unchanged Admissions Decision to Admit Reason: Admit from ER (General) Decision to Admit/Date: Mar 20, 2018 Time/Decision to Admit Time: 12:13 Departure-Patient Inst. Referrals: GAGE SMALL MD (PCP/Family) Primary Care Physician JACKY MOLINA MD Mar 20, 2018 11:05
[2018-03-20] MEDS ORDERED: IOHEXOL 350 MG/ML 100 ML (OMNIPAQUE 350) VIAL IV ONE (11:15)
--- NOTE | 2018-03-20 11:56 | Diagnostic Imaging Report ---
PROCEDURE: CT angiography of the head and CT angiography of the neck with and without contrast. TECHNIQUE: Contiguous noncontrast images were obtained from the skull base through the vertex. After intravenous contrast administration, helical CT angiography of the neck was performed. Source data was reformatted into multiple MIP projections. Delayed post contrast acquisition was also obtained. INDICATION: Headache, vertigo COMPARISON: None. FINDINGS: Noncontrast CT head demonstrates no evidence of hemorrhage or acute ischemia. Postcontrast imaging demonstrates no abnormal enhancement or mass. The [place] of [place] is intact. There is no vascular occlusion, stenosis, aneurysm or AVM. Minimal atherosclerosis is seen within the carotid siphons, carotid bulbs. There is no stenosis or occlusion. The left vertebral artery ends in PICA. The right vertebral artery is dominant. There is no dissection. Visualized arch anatomy is grossly unremarkable. Venous structures are intact. Mild degenerative changes seen throughout the disc spaces and facet joints of the cervical spine. Impression: Minimal atherosclerosis seen in the carotid siphons and carotid bulbs bilaterally. No vascular occlusion or stenosis is seen. No abnormal enhancement or mass. No focus of acute ischemia or hemorrhage. No aneurysm or AVM. Dictated by: Dictated on workstation # [id number]
[2018-03-20] MEDS ORDERED: MECLIZINE 25 MG (ANTIVERT) TAB PO ONE (12:00)
[2018-03-20] MEDS ORDERED: GADOBUTROL 10 MMOL/10 ML (GADAVIST) VIAL IV ONE (13:15)
--- NOTE | 2018-03-20 13:38 | Diagnostic Imaging Report ---
PROCEDURE: MR imaging of the brain with and without contrast. TECHNIQUE: Multiplanar, multisequence MR imaging of the brain was performed with and without contrast. INDICATION: Dizziness. Nausea. Vertigo. Headache. COMPARISON: CT head without contrast 07/21/2014. FINDINGS: Mild generalized cerebral and cerebellar parenchymal volume loss. Mild nonspecific T2 hyperintensities in the supratentorial white matter. No abnormal intracranial enhancement. No restricted water diffusion or hemosiderin deposition. Normal morphology including the major midline structures, sella, posterior fossa and cerebellar pontine angle. Postoperative changes in the globes. Normal intracranial flow voids. No hydrocephalus or extra-axial fluid collections. The paranasal sinuses and mastoids are clear. Normal bone marrow signal. IMPRESSION: Age-appropriate MRI of the brain without and with IV contrast. No acute intracranial MRI findings. Dictated by: Dictated on workstation # [id number]
[2018-03-20] MEDS ORDERED: ONDANSETRON 8 MG (ZOFRAN) ORAL DISSOLVE TAB PO PRN (14:15)
[2018-03-20] MEDS: MECLIZINE 25 MG (ANTIVERT) TAB PO PRN (16:45)
[2018-03-20 16:58] VITALS: BP 150/69
[2018-03-20] MEDS ORDERED: warFARin 5 MG (COUMADIN) TAB PO SCH (18:00)
[2018-03-20 20:00] VITALS: BP 140/66
[2018-03-20] MEDS ORDERED: LATANOPROST 0.005% (XALATAN) OPHTH SOLN 2.5 ML OU SCH (21:00)
[2018-03-21] VITALS (7 sets, daily range): BP systolic 108–163; BP diastolic 53–86
[2018-03-21] MEDS: NS IV 1000 ML 1,000 ML IV SCH (06:32)
[2018-03-21 07:08] LABS: INR 2.9 (0.8-1.4); PROTHROMBIN TIME PATIENT 30.5 SEC (12.2-14.7)
[2018-03-21] MEDS ORDERED: PATIENT MAY USE OWN MEDS, ALL MC SCH ×2 (08:30→12:15)
[2018-03-21] MEDS ORDERED: DILTIAZEM 180 MG (CARDIZEM CD) CAP PO SCH (09:00)
[2018-03-21] MEDS ORDERED: lisINopril 10 MG (PRINIVIL) TABLET PO SCH (09:00)
[2018-03-21] MEDS: lisINopril 5 MG (PRINIVIL) TABLET PO SCH (09:39)
[2018-03-21] MEDS: DILTIAZEM 180 MG (CARDIZEM CD) CAP PO SCH (09:40)
--- NOTE | 2018-03-21 10:33 | Physical Therapy Evaluation ---
PT Evaluation-General Medical Diagnosis Admission Date Mar 20, 2018 at 12:20 Medical Diagnosis: vertigo/ataxia Onset Date: Mar 20, 2018 Therapy Diagnosis Therapy Diagnosis: debility Height/Weight Height (Feet): 5 Height (Inches): 8.00 Weight (Pounds): 197 Weight (Ounces): 0.0 Precautions Precautions/Isolations: Fall Prevention, Standard Precautions Weight Bear Status Right Lower Extremity: Right Weight Bearing/Tolerated Left Lower Extremity: Left Weight Bearing/Tolerated Referral Physician: Benitez Reason for Referral: Evaluation/Treatment Medical History Pertinent Medical History: Atrial Fib, HTN Current History ED secondary to c/o dizziness and nausea Reviewed History: Yes Social History Home: Single Level Current Living Status: Alone Entry Into Home: Stairs With Railing PT Steps Into Home: 2 Prior/Core FIM Prior Level of Function Functional [place] Measure 0=Not Assessed/NA 4=Minimal Assistance 1=Total Assistance 5=Supervision or Setup 2=Maximal Assistance 6=Modified [place] 3=Moderate Assistance 7=Complete [place] Bed Mobility: 7 Transfers (B,C,W/C) (FIM): 7 Gait: 7 does have FWW for use PRN PT Evaluation-Current Subjective Patient reports she is feeling "a little better". Pain Numeric Pain Scale: 0-No Pain Location: No Pain Reported Objective Patient Orientation: Normal For Age Problem Solving: Fair Attachments: IV ROM/Strength ROM Lower Extremities bilateral LE wNL Strength Lower Extremities 4+/5 grossly bilaterally Integumentary/Posture Integumentary refer to nursing notes Bowel Incontinence: No Bladder Incontinence: No Posture WFL Neuromuscular (Tone, Coordination, Reflexes) grossly intact Sensory Vision: Wears Glasses Hearing: Functional Sensation Right Lower Extremit: Intact Sensation Left Lower Extremity: Intact Transfers Functional [place] Measure 0=Not Assessed/NA 4=Minimal Assistance 1=Total Assistance 5=Supervision or Setup 2=Maximal Assistance 6=Modified [place] 3=Moderate Assistance 7=Complete [place] Transfers (B, C, W/C) (FIM): 5 Scootin Rollin Supine to/from Sit: 6 Sit to/from Stand: 5 patient toileded self without difficulty Gait Mode of Locomotion: Walk Anticipated Mode of Locomotion: Walk Gait (FIM): 5 Distance (FIM): 3=150 ft Distance: 300' Gait Level of Assist: 5 Gait Assistive Device: FWW Comments/Gait Description steady gait sequence with no deviation Balance Sitting Static: Normal Sitting Dynamic: Normal Standing Static: Normal Standing Dynamic: Normal Assessment/Needs 82 y.o. female, will be seen short term by skilled PT to ensure safe return to home at maximum LOF. Patient has FWW from previous issues and is able to utilize PRN. Rehab Potential: Good PT Environmental Issues Instructor Goals Environmental Issues Instructor Goals PT Environmental Issues Instructor Goals Time Frame: Mar 24, 2018 Transfers (B,C,W/C) (FIM): 7 Gait (FIM): 7 Gait distance (FIM): 3=150 ft Gait Level of Assist: 7 Gait Assistive Device: None PT Plan Treatment/Plan Treatment Plan: Continue Plan of Care Treatment Plan: Education, Functional Activity Genevieve, Functional Strength, Gait , Safety, Therapeutic Exercise, Transfers Treatment Duration: Mar 24, 2018 Frequency: 4 times per week Estimated Hrs Per Day: .25 hour per day Patient and/or Family Agrees t: Yes Discharge Recommendations Therapy D/C Recommendations: Home Independently Time/GCodes Time In: 1002 Time Out: 1023 Total Billed Treatment Time: 21 Total Billed Treatment 1 visit EVMod 21 min G Codes Necessary: Yes PT/OT Therapy GCodes Therapy Functional Limitation: Physical Therapy Test(s)/Tool used to determine: FIM Functional Limitation-Current Charge Code: MOBCUR Modifier: CJ Functional Limitation-Goal Charge Code: MOBGOAL Modifier: MADISYN GARCIA PT Mar 21, 2018 10:33
--- NOTE | 2018-03-21 11:59 | History & Physical-Hospitalist ---
History of Present Illness HPI/Chief Complaint Pt is an 82yoCF with a PMH of HTN, atrial fibrillation, and peripheral neuropathy who presented to the ER with dizziness and imbalance. She states she woke up at 130am yesterday and was feeling fine and then woke up at 630am and turned her head and suddenly became very nauseated and off balance. She attempted to walk and couldn't stand because she was so off balance. She then called her grandson who went and got her a walker and she walked to her car to come to the ER. She continued to feel off balance and that the room was spinning. The vertigo and nausea were worse with head movement. She underwent CTA to evaluate for possible posterior circulation embolism and that was negative. She also underwent MRI studies to rule out acute infarct as well. Today she states she is feeling much better but still not back to her baseline. She feels more steady on her feet today though. She is still getting dizzy. The meclizine has helped as well. Source: patient Date Seen 03/21/18 Time Seen by Provider: 11:00 Attending Physician Kenny Marquis MD PCP Trenton Martinez MD Referring Physician Date of Admission Mar 20, 2018 at 12:20 pm Home Medications & Allergies Home Medications Reviewed patient Home Medication Reconciliation performed by pharmacy medication reconciliations field artillery targeting technician and/or nursing. Patients Allergies have been reviewed. Allergies Allergies Coded Allergies Tetanus Vaccines and Toxoid (Unverified Allergy, Unknown, 10/22/17) meperidine (Unverified Adverse Reaction, Mild, VOMITING, 10/22/17) Past Ixtdnna-Ekjbes-Xsqfyl Hx Past Med/Social Hx: Reviewed Nursing Past Med/Soc Hx Patient Social History Alcohol Use: Denies Use Recreational Drug Use: No Smoking Status: Never a Smoker Physical Abuse Screen: No Sexual Abuse: No Recent Foreign Travel: No Contact w/other who traveled: No Recent Hopitalizations: No Recent Infectious Disease Expo: No Immunizations Up To Date Pediatric: No Date of Pneumonia Vaccine: Aug 21, 2009 Seasonal Allergies Seasonal Allergies: No Past Medical History Surgeries: Abdominal (hiatal hernia), Hysterectomy, Orthopedic (carpal tunnel) skin cancer removal Currently Using CPAP: Yes Cardiac: Atrial Fibrillation, Hypertension : No Reproductive: No Sexually Transmitted Disease: No HIV/AIDS: No Genitourinary: UTI-Chronic Gastrointestinal: Chronic Constipation Musculoskeletal: Arthritis HEENT: Glaucoma Loss of Vision: Bilateral Cancer: Skin What Type of Treatment Did You: Surgical Intervention Skin/Integumentary: Psoriasis History of Blood Disorders: No Adverse Reaction to Blood Philippe: No (HAS HAD BLOOD WITH NO REACTION) Family History Reviewed Nursing Family Hx Colon cancer 19 MOTHER FH: stroke 19 FATHER Pulmonary fibrosis G8 BROTHER Cancer, CVA (father at 56yo) Review of Systems Constitutional: dizziness Respiratory: no symptoms reported Cardiovascular: no symptoms reported Gastrointestinal: No abdominal pain; nausea; No vomiting Genitourinary: no symptoms reported Musculoskeletal: other (foot pain- chronic) Skin: hx of skin cancer Psychiatric/Neurological: Paresthesia (chronic- neuropathy), Other (off balance ) Physical Exam Physical Exam Vital Signs Vital Signs - First Documented 03/20/18 03/21/18 08:38 00:00 Temp 98.0 Pulse 70 Resp 16 B/P (MAP) 190/70 (110) Pulse Ox 96 O2 Delivery Room Air O2 Flow Rate 3.00 Capillary Refill : Less Than 3 Seconds Height, Weight, BMI Height: 5'8.00" Weight: 197lbs. 0.0oz. 89.345574yl; 30.0 BMI Method:Stated General Appearance: No Apparent Distress, WD/WN HEENT: PERRL/EOMI, Moist Mucous Membranes; No Scleral Icterus (L), No Scleral Icterus (R) Neck: JVD Respiratory: Lungs Clear, No Respiratory Distress Cardiovascular: Regular Rate, Rhythm, No Murmur Gastrointestinal: Normal Bowel Sounds, Non Tender, Soft Extremity: No Calf Tenderness, No Pedal Edema Neurologic/Psychiatric: Alert, Oriented x3, Normal Mood/Affect; No Aphasia, No Facial Droop Skin: Normal Color, Warm/Dry Results Results/Procedures Labs Laboratory Tests 03/20/18 08:49 Patient resulted labs reviewed. Imaging: Reviewed Imaging Report Assessment/Plan Admission Diagnosis Ataxia Admission Status: Observation Diagnosis/Problems Diagnosis/Problems (1) Ataxia Assessment & Plan: Imaging negative for stroke PT/OT consulted Improving Still not steady on her feet Lives at home by herself- may need home health prior to discharge Symptoms likely worsened by baseline neuropathy (2) Vertigo Assessment & Plan: Continue Meclizine PT Will likely need ENT followup as an outpatient Advised patient on reflex fatigue of BPV as likely cause of symptoms (3) Atrial fibrillation Assessment & Plan: Rate in 50 Regular on my exam Continue Diltiazem INR 2.9 today- resume Warfarin Qualifiers: Atrial fibrillation type: paroxysmal Qualified Codes: I48.0 - Paroxysmal atrial fibrillation (4) Essential (primary) hypertension Assessment & Plan: Well controlled, trend Continue Cardizem and Lisinopril Clinical Quality Measures DVT/VTE Risk/Contraindication: Risk Factor Score Per Nursin RFS Level Per Nursing on Admit: 3=High KENNY MARQUIS MD Mar 21, 2018 11:59 am
[2018-03-21] MEDS: MECLIZINE 25 MG (ANTIVERT) TAB PO PRN (13:48)
[2018-03-21] MEDS: FLUTICASONE NASAL SPRAY (FLONASE) 16 GM BTL NS SCH (13:49)
[2018-03-21] MEDS ORDERED: warFARin 5 MG (COUMADIN) TAB PO SCH (18:00)
[2018-03-22] VITALS: BP 130/63
[2018-03-22 04:00] VITALS: BP 152/67
[2018-03-22 08:30] VITALS: BP 165/70
[2018-03-22] MEDS: FLUTICASONE NASAL SPRAY (FLONASE) 16 GM BTL NS SCH (08:34)
[2018-03-22] MEDS: DILTIAZEM 180 MG (CARDIZEM CD) CAP PO SCH (08:36)
[2018-03-22] MEDS: lisINopril 5 MG (PRINIVIL) TABLET PO SCH (08:36)
[2018-03-22] MEDS ORDERED: DILT180C54 PO (08:54)
[2018-03-22] MEDS ORDERED: WARF-48 PO (08:54)
[2018-03-22] MEDS ORDERED: MULT-985 PO (08:56)
--- NOTE | 2018-03-22 11:00 | Physical Therapy Daily Note ---
PT Daily Note-Current Subjective Patient report she is going home on this date and feels much better. Pain Numeric Pain Scale: 0-No Pain Location: No Pain Reported Mental Status Patient Orientation: Normal For Age Transfers Functional Pershing Measure 0=Not Assessed/NA 4=Minimal Assistance 1=Total Assistance 5=Supervision or Setup 2=Maximal Assistance 6=Modified Pershing 3=Moderate Assistance 7=Complete IndependenceIRFPAI Quality Coding Scale 6 Independent with activity with or without an assistive device 5 Patient requires set up or clean up by helper. Patient completes activity by themselves 4 Supervision or touching assist (CGA). [place] provide cues , steadying assist 3 The helper provides less than half the effort to complete the activity 2 The helper provides more than half the effort to complete the activity 1 Dependent. The helper does all the effort to complete an activity 7 Patient refused to complete or attempt activity 9 The patient did not perform the activity before the current illness or injury 88 Not attempted due to Medical conditions or safety concerns Transfers (B, C, W/C) (FIM): 6 Scootin Rollin Supine to/from Sit: 7 Sit to/from Stand: 6 Bed to/from Chair: 6 Weight Bearing Right Lower Extremity: Right Weight Bearing/Tolerated Left Lower Extremity: Left Weight Bearing/Tolerated Gait Training Gait (FIM): 6 Distance (FIM): 3=150 ft Distance: 350' Gait Level of Assist: 6 Gait Assistive Device: FWW Patient does have FWW at home for use Assessment Patient is currently at [facility] with all gross motor skills and will dismiss safely to home on this date. PT to dismiss patient at this time. PT Community Service Director Goals Community Service Director Goals PT Community Service Director Goals Time Frame: Mar 24, 2018 Transfers (B,C,W/C) (FIM): 7 Gait (FIM): 7 Gait distance (FIM): 3=150 ft Gait Level of Assist: 7 Gait Assistive Device: None PT Plan Treatment/Plan Treatment Plan: Discontinue PT Treatment Plan: Education, Functional Activity Genevieve, Functional Strength, Gait , Safety, Therapeutic Exercise, Transfers Treatment Duration: Mar 24, 2018 Frequency: 4 times per week Estimated Hrs Per Day: .25 hour per day Patient and/or Family Agrees t: Yes Time/GCodes Time In: 950 Time Out: 1000 Total Billed Treatment Time: 10 Total Billed Treatment 1 visit GT 10 min G Codes Necessary: Yes PT/OT Therapy GCodes Therapy Functional Limitation: Physical Therapy Test(s)/Tool used to determine: FIM Functional Limitation-Current Charge Code: MOBCUR Modifier: CJ Functional Limitation-Goal Charge Code: MOBGOAL Modifier: CH Functional Limitation-D/C Charge Codes: MOBDC Modifier: MADISYN DEVRIES PT Mar 22, 2018 11:00
--- NOTE | 2018-03-22 13:39 | Progress Note-Hospitalist ---
Progress Note Progress Notes/Assess & Plan Date Seen 03/22/18 Time Seen by Provider: 13:37 Assessment & Plan The patient is an 82-year-old white female whom I saw in the emergency room on Thursday with disabling vertigo. She reports she is much better today and is planning to go home. She was informed that she will be given a prescription for meclizine and should take it for a few days. Physical exam: There is no nystagmus. Lungs are clear to auscultation. CV is regular without murmur. Abdomen is soft. Extremities show no pedal edema. Note: Physical therapy has reviewed and finds her stable on her feet. Impression: Vertigo. Plan: Discharge to home. See discharge sequence for medications and activities JACKY MOLINA MD Mar 22, 2018 13:39
[2018-03-22] MEDS ORDERED: MECL-106 PO (13:42)
--- NOTE | 2018-03-22 13:45 | Discharge Instructions ---
Discharge Instructions Patient Instructions Patient Instructions: Resume medications as listed on the discharge sequence. A new prescription for meclizine has been ordered. I would take it 3 or 4 times a day for the next couple of days and then stop. Extra doses have been included if needed for recurrence of symptoms. Get your next pro time/INR as your routine dictates Activity & Diet Discharge Diet: Coumadin Patient Diet Copy Copies To 1: GAGE SMALL MD, RODNEY K MD Mar 22, 2018 13:45
--- NOTE | 2018-03-22 13:49 | Progress Note-Hospitalist ---
Progress Note Progress Notes/Assess & Plan Date Seen 03/22/18 Time Seen by Provider: 13:47 Assessment & Plan The patient reports she is much better than when I saw her in the emergency room Thursday. She has been seen by physical therapy and they relate that she walks well and safely. She believes the Antivert helped and feels she is ready for discharge. Physical exam: There is no nystagmus. Lungs are clear to auscultation. CV is regular. Impression: Vertigo. 2.history of atrial fibrillation. 3.hypertension. Plan: Discharge. See discharge sequence for medications and routines. JACKY MOLINA MD Mar 22, 2018 13:49
[2018-03-22] MEDS: MECLIZINE 25 MG (ANTIVERT) TAB PO PRN (14:15)
[2018-03-22 15:03] VITALS: BP 165/70
== END 2018-03-22 13:42 | disposition home or self-care (01) ==
LOC: EDUNIT# 08:22 → ER 08:23 → 4TH 12:20 → UNDOADMOB 12:20 → 4TH 13:40 → UNDODISOB 03-22 15:00
PROVIDERS: ADMIT Family Medicine; ATTEND Family Medicine
DX: R42 Dizziness and giddiness (principal); I48.0 Paroxysmal atrial fibrillation; I10 Essential (primary) hypertension; G62.9 Polyneuropathy, unspecified; K59.09 Other constipation; H40.9 Unspecified glaucoma; L40.9 Psoriasis, unspecified; Z85.828 Personal history of other malignant neoplasm of skin; Z79.01 Long term (current) use of anticoagulants
CPT/HCPCS: 36415; 70496; 70498; 70553; 80053; 81000; 85025; 85610; 96361; 96374; G0378

== ENCOUNTER → 2018-06-25 | Outpatient (CLI) | payer MEDICARE, OTHER ==
[~2018-06-25] MED LIST changes: +DILT180C54 PO; +MECL-106 PO; +MULT-985 PO; +WARF-48 PO
--- NOTE | 2018-06-25 14:07 | Diagnostic Imaging Report ---
INDICATION: Right knee injury from a fall. FINDINGS: Four views of the right knee show no fracture, dislocation or other acute abnormalities. There are small osteophytes forming in the medial tibiofemoral joint space. IMPRESSION: Mild degenerative change of the medial compartment of the knee. No acute abnormality is seen. Dictated by: Dictated on workstation # [id number]
== END ==
LOC: RAD 11:49
PROVIDERS: ATTEND Nurse Practitioner
DX: S89.91XA Unspecified injury of right lower leg, initial encounter (principal); M17.11 Unilateral primary osteoarthritis, right knee; W19.XXXA Unspecified fall, initial encounter
CPT/HCPCS: 73564

== ENCOUNTER → 2018-06-28 | Outpatient (CLI) | payer MEDICARE, OTHER ==
--- NOTE | 2018-06-28 16:55 | Diagnostic Imaging Report ---
INDICATION: Right leg pain and swelling. TECHNIQUE: Grayscale with color-flow and Doppler waveform evaluation of the right lower extremity deep venous system. CORRELATION STUDY: None FINDINGS: Color and grayscale sonographic images demonstrate no intraluminal defect within the visualized portion of the common femoral, superficial femoral and/or popliteal veins to suggest thrombus formation. These vessels demonstrate normal response to compression and augmentation. Rather extensive amount of soft tissue edema is noted in the calf. This does limit assessment. IMPRESSION: 1. Negative for deep venous thrombosis of the right leg. Dictated by: Dictated on workstation # [id number]
== END ==
LOC: RAD 16:30
PROVIDERS: ATTEND Anesthesiology Pain Medicine
DX: M79.89 Other specified soft tissue disorders (principal)

== ENCOUNTER → 2019-03-09 | Outpatient (CLI) | payer MEDICARE, OTHER ==
--- NOTE | 2019-03-11 07:38 | Diagnostic Imaging Report ---
Digital mammogram. Bilateral screening with 3-D tomosynthesis and CAD. This study was compared to the prior exam of 03/08/2018, 02/26/2017 and 02/20/2016. At this time there are no current complaints. The current study was also evaluated with a Computer Aided Detection (CAD) system. FINDINGS: The fibroglandular tissue in both breasts is heterogeneously dense. This does limit the sensitivity of this exam. Overall, there does not appear to have been any significant change when compared to the prior study. No primary or secondary sign of malignancy is noted. IMPRESSION: There is no radiographic evidence for malignancy. ACR BI-RADS Category 1: Negative. Result letter will be mailed to the patient. Note: At least 10% of breast cancer is not imaged by mammography. Dictated by: Dictated on workstation # [id number]
== END ==
LOC: RAD 10:21
PROVIDERS: ATTEND Internal Medicine
DX: Z12.31 Encounter for screening mammogram for malignant neoplasm of breast (principal)
CPT/HCPCS: 77067

== ENCOUNTER → 2019-05-13 | Outpatient (CLI) | payer MEDICARE, OTHER ==
[~2019-05-13] MED LIST changes: +DILT-28 PO; -DILT180C90 PO; +DOCU-143 PO
== END ==
LOC: CARD 13:06
PROVIDERS: ATTEND Internal Medicine Cardiovascular Disease
DX: R55 Syncope and collapse (principal)
CPT/HCPCS: 93225; 93226

== ENCOUNTER 2019-05-31 11:05 | Day surgery (SDC) | payer MEDICARE, OTHER ==
[~2019-05-31] VITALS: Ht 167 cm; Wt 92.0 kg
[~2019-05-31 11:05] MED LIST changes: -DILT-28 PO; +DILT180C90 PO
[2019-05-31] MEDS ORDERED: LIDOCAINE 1% INJ 20 ML 20 ML VIAL ONE (11:06)
[2019-05-31] MEDS ORDERED: LIDOCAINE 1% INJ 20 ML 20 ML VIAL INJ ONE (11:15)
[2019-05-31 11:17] VITALS: BP 158/72
--- NOTE | 2019-05-31 11:32 | Cardiac Procedure Note-CS/ASA ---
Pre-Procedure Note Pre-Op Procedure Note H&P Reviewed The H&P was reviewed, patient examined and no changes noted. Date H&P Reviewed: May 31, 2019 Time H&P Reviewed: 11:32 Conscious Sedation Pre-Proced Time 11:32 ASA Score 2, 3 For ASA 3 and 4: Consider anesthesia and medical clearance. Also, for patients with a history of failed moderate sedation consider anesthesia. Airway Lungs Heart ASA score ASA 1: a normal healthy patient ASA 2: a patient with a mild systemic disease (mid diabetes, controlled hypertension, obesity ASA 3: a patient with a severe systemic disease that limits activity (angina, COPD, prior Myocardial infarction) ASA 4: a patient with an incapacitating disease that is a constant threat to life (CHF, renal failure) ASA 5: a moribund patient not expected to survive 24 hrs. (ruptured aneurysm) ASA 6: a declared brain- patient whose organs are being harvested. For emergent operations, add the letter E after the classification Mallampati Classification Grade 2 Sedation Plan Analgesia, Amnesia, Plan communicated to team members, Discussed options with patient/fam, Discussed risks with patient/fam The patient is an appropriate candidate to undergo the planned procedure, sedation, and anesthesia. The patient immediately re-assessed prior to indication. MAKI GARCIA MD FACP FAC CCDS May 31, 2019 11:32 POS
--- NOTE | 2019-05-31 19:22 | OPERATIVE REPORT ---
DATE OF SERVICE: 05/31/2019 PREOPERATIVE DIAGNOSIS: Syncope. POSTOPERATIVE DIAGNOSIS: Syncope. PROCEDURE PERFORMED: Implantable loop recorder implantation. DESCRIPTION OF PROCEDURE: The patient is an 83-year-old lady who has had syncope and the etiology is unclear. Implantable loop recorder implantation was carried out after having obtained an informed consent. The left prepectoral area was prepared and draped in the usual sterile fashion. The tools provided with the Citelighter Reveal LINQ device were used to make a subcutaneous pocket anterior to the fourth intercostal space into which the device was placed and the edges were closed using Dermabond and Steri-Strips. She tolerated the procedure well. The serial number of the device is [id number]. Job ID: [id number] DocumentID: [id number] Dictated Date: 05/31/2019 11:44:02 Weather Clerk Date: 05/31/2019 19:21:21 Dictated By: MAKI GARCIA MD, MA, FACP, FACC,
== END 2019-05-31 12:04 | disposition home or self-care (01) ==
LOC: CATH 11:05
PROVIDERS: ATTEND Internal Medicine Cardiovascular Disease
DX: R55 Syncope and collapse (principal); I71.4 Abdominal aortic aneurysm, without rupture; I77.89 Other specified disorders of arteries and arterioles; N39.0 Urinary tract infection, site not specified; I73.9 Peripheral vascular disease, unspecified; I48.0 Paroxysmal atrial fibrillation; I49.5 Sick sinus syndrome; G47.33 Obstructive sleep apnea (adult) (pediatric); I10 Essential (primary) hypertension; H40.9 Unspecified glaucoma; G90.521 Complex regional pain syndrome I of right lower limb; Z85.828 Personal history of other malignant neoplasm of skin; Z79.899 Other long term (current) drug therapy; Z79.01 Long term (current) use of anticoagulants; Z88.5 Allergy status to narcotic agent; Z88.7 Allergy status to serum and vaccine
CPT/HCPCS: 33285

== ENCOUNTER 2019-11-15 07:02 | Day surgery (SDC) | payer MEDICARE, OTHER ==
[2019-11-15] VITALS (7 sets, daily range): BP systolic 100–142; BP diastolic 47–65
[~2019-11-15] VITALS: Ht 180 cm; Wt 91.0 kg
[~2019-11-15 07:02] MED LIST changes: +DILT-28 PO; -DILT180C90 PO; +HEParin (CATH LAB) 1,000 ML IV ONE; +LIDOCAINE 1% INJ 20 ML 20 ML VIAL ONE; -MECL-106 PO; +MECL-149 PO; +NS IV 1000 ML 1,000 ML ONE; +ceFAZolin INJECTION 1,000 MG ONE
[2019-11-15] MEDS ORDERED: NS IV 1000 ML 1,000 ML IV ONE (07:04)
--- OUTSIDE RECORDS SUMMARY | 2019-11-15 07:06 | XMS REPORT | Clinical Summary ---
Author Author [facility] Organization [facility] Address Unknown Phone Unavailable Care Team Providers Care Teletypesetter Name Role Phone Mustapha Mohamud MD Unavailable Trenton Martinez MD PCP Source Comments Some departments are not documenting in the electronic medical record. If you d o not see the information that you expected, contact Release of Information in [facility] [employer] Information Management department at [phone] for further assistan ce in locating additional records.[facility] Allergies Comments Active Allergy Reactions Severity Noted Date Meperidine VOMITING 08/24/2008 Reacted to skin test Tetanus Vaccines And 08/24/2008 Toxoid Medications End Date Status Medication Sig Dispensed Refills Start Date Active lisinopril (PRINIVIL; Take 5 mg by 0 ZESTRIL) 5 mg PO tablet mouth twice daily. Active bimatoprost(+) (LUMIGAN) Insert or 0 0.03 % OP Drop Apply 1 Drop to right eye as directed at bedtime daily. Active warfarin (COUMADIN) 5 mg Take 5 mg by 0 tabletIndications: PAF mouth daily. (paroxysmal atrial fibrillation) (HCC), HTN (hypertension) Active diltiazem CD (CARDIZEM Take 120 mg 0 CD) 120 mg by mouth capsuleIndications: PAF daily. (paroxysmal atrial fibrillation) (HCC), HTN (hypertension) Active dronedarone (MULTAQ) 400 Take 1 Tab by 12 Tab 0 05/24/201 mg tablet mouth twice 2 daily with meals. Active Problems Problem Noted Date Chronic anticoagulation 05/10/2012 Sleep apnea, obstructive 05/04/2012 Overview: 04-22-2012 Sleep study: Cardiac: The EC G was sinus may. The average HR while asleep was 57. She did exhibit pa roxysmal narrow complex tachycardia. OSAS with positive sleep study. Obstructive sleep apnea on CPAP 05/04/2012 Overview: Sleep Study in [place] on 04/16/12 and report sent to us and Impression was: "moderate obstructive sleep apnea, CPAP was initiated.... Uterine prolapse 08/11/2011 Coronary artery disease (CAD) excluded 04/23/2010 Overview: 06/19--No significant CAD per report fr om Cardiac Cath by Dr. Lozoya -normal LVEF 65%, normal LVEDP LV function-normal a. 05/20 resting echo: Normal global LV systolic function. EF 50-55%. 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 Sinus bradycardia 04/23/2010 Overview: -aSxic Sinus Bradycardia Near-syncope 08/24/2008 Overview: Near syncope a. Episodes of near passing out -- conc royal for sinus node dysfunction versus AV block given baseline conduction disease and sinus b radycardia reported. b. 06/19 Holter monitor. No episodes of bradycardia c. 05/20 carotid Doppler: Minimal right atherosclerotic plaque without significant stenosis d. Carotid sinus massage by Drs. Lozoya and [place]: Both negative. e. 08/24/08 implantable looping recorde r.Confirm ILR implanted. Continue to monitor. Sensitivity adjusted 09/18. 05/20 nonobstructive Carotid artery dis ease by carotid duplex. L ast Assessment & Plan: The patient denies any recent syncope. She tells me she has had dizzy spells all her life. We will continue to watch her carefully. Basal Cell Carcinoma of Skin HTN (hypertension) PAF (paroxysmal atrial fibrillation) Overview: 1. Paroxysmal atrial fibrillation with RVR a. 06/19 event looping monitor triggere d event. Went to ED and found in AFIB with RVR. Admit to ICU. b. Refuses Coumadin. (Patient has CHADS score of 2, therefore Coumadin recommended.) c. Taking enteric-coated aspirin. d. Pill in pocket with Cardizem CD 120 mg for heart rate greater than 120. e. 08/24/[address] [place] ILR implan sherman. Will continue to monitor for recurrent events. 2010 CHADS2 score of 2 L ast Assessment & Plan: She has had no further atrial fibrillat ion by symptoms or ILR check. I talked to her at length about atrial fi brillation and her CHADS2 score. Mrs. Day feels strongly she can feel h er AF. Therefore, she doesn't feel anticoagulation is necessary at this po int. We will continue to monitor her closely. Resolved Problems Problem Noted Date Resolved Date PAST MEDICAL HISTORY OF 03/26/2010 08/11/2011 Overview: Family History Medical History Relation Name Comments Stroke Father Cancer Mother Relation Name Status Comments Father Mother Social History Date Tobacco Use Types Packs/Day Years Used Never Smoker Smokeless Tobacco: Never Used Drinks/Week oz/Week Comments Alcohol Use No Sex Assigned at Date Recorded Not on file Industry Job Start Date Occupation Not on file Not on file Not on file Travel End Travel History Travel Start No recent travel history available. Last Filed Vital Signs Reading Time Taken Comments Vital Sign 130/51 05/10/2012 1:41 PM CDT Blood Pressure 66 05/10/2012 1:41 PM CDT Pulse 36.4 C (97.5 F) 05/10/2012 1:41 PM CDT Temperature - - Respiratory Rate 100% 05/10/2012 1:41 PM CDT Oxygen Saturation - - Inhaled Oxygen Concentration 83.6 kg (184 lb 4.9 oz) 05/10/2012 8:15 AM CDT Weight 172.7 cm (5' 8") 05/10/2012 8:15 AM CDT Height 28.02 05/10/2012 8:15 AM CDT Body Mass Index Plan of Treatment Health Maintenance Due Date Last Done Comments DTAP/TDAP VACCINES (1 - 1951 Tdap) PHYSICAL (COMPREHENSIVE) 1953 EXAM SHINGLES RECOMBINANT 1983 VACCINE (1 of 2) OSTEOPOROSIS 1998 SCREENING/MONITORING PNEUMONIA (PPSV23) 1998 VACCINE (1 of 1 - PPSV23) INFLUENZA VACCINE 04/12/2020 Results Not on filefrom Last 3 Months Advance Directives Date Inactivated Comments Code Status Date Activated 05/11/2012 5:08 AM Full Code 05/10/2012 7:48 AM Provider has discussed Code Status No, more discussi on w/Patient or Family? needed
--- OUTSIDE RECORDS SUMMARY | 2019-11-15 07:08 | XMS REPORT | Continuity of Care Document ---
Author Organization Unknown Address Unknown Phone Unavailable Allergies Active Description Code Type Severity Reaction Onset Reported/Identified Relationship to Patient Clinical Status Yes Tetanus Vaccines Toxoid [id number] Drug Allergy Unknown N/A 03/19/2007 Yes meperidine [id number] Drug Allerg y Mild VOMITING 10/22/2017 Yes Tetanus Vaccines and Toxoid [id number] Drug Allergy Unknown N/A 10/22/2017 Medications There is no data. 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 05/13/2012 Ot 782.3 EDEMA 05/13/2012 Ot 924.11 CON TUSION OF KNEE 05/13/2012 Ot 959.7 LOWE R LEG INJURY NOS 05/13/2012 Ot E000.8 OTH ER EXTERNAL CAUSE STATUS 05/13/2012 Ot E849.0 ACC IDENT IN HOME 05/13/2012 Ot E885.9 FAL L FROM SLIPPING, TRIPPING, OR STUMBLI 05/13/2012 Ot V58.61 ANTICOAGULANTS,LT,CURRENT USE 05/13/2012 Ot V58.69 OTH MED,LT,CURRENT USE 10/06/2012 Ot 455.0 INT HEMORRHOID W/O COMPL 10/06/2012 Ot 455.3 EXT HEMORRHOID W/O COMPL 10/06/2012 Ot V16.0 FAMI LY HX-GI MALIGNANCY 10/06/2012 Ot V76.51 SCR EEN MAL NEOP- COLON 05/27/2014 LANDEN EUBANKS Ot 427.31 ATRIAL FIBRILLATION 05/27/2014 LANDEN EUBANKS Ot 599.0 URIN TRACT INFECTION NOS 05/27/2014 LANDEN EUBANKS Ot 599.70 HEMATURIA, UNSPECIFIED 05/27/2014 LANDEN EUBANKS Ot V58.61 ANTICOAGULANTS,LT,CURRENT USE 05/27/2014 LANDEN EUBANKS Ot V58.69 OTH MED,LT,CURRENT USE 05/27/2014 STACI NEGRON, GAGE Burektt Ot 793.8 9 08/21/2014 LUIS NEGRON, LATASHA Fernandez Ot V15.88 08/21/2014 LATASHA SMITH MD Ot V58.61 08/21/2014 LATASHA SMITH MD Ot V58.83 12/07/2014 JOSE NEGRON FACC, MAKI FACP CCDS Ot 401.9 12/07/2014 JOSE NEGRON FACC, ALI FACP CCDS Ot 427.31 12/07/2014 JOSE NEGRON FACC, ALI FACP CCDS Ot 427.81 12/07/2014 JOSE BAILEYC, ALI FACP CCDS Ot 440.8 12/07/2014 JOSE NEGRON FACC, ALI FACP CCDS Ot 447.1 12/07/2014 JOSE NEGRON FACC, ALI FACP CCDS Ot 401.9 12/07/2014 JOSE BAILEYC, ALI FACP CCDS Ot 427.31 12/07/2014 JOSE NEGRON FACC, ALI FACP CCDS Ot 427.81 12/07/2014 JOSE NEGRON FACC, ALI FACP CCDS Ot 440.8 12/07/2014 JOSE NEGRON FACC, ALI FACP CCDS Ot 447.1 12/07/2014 JOSE BAILEYC, ALI FACP CCDS Ot 401.9 12/07/2014 JOSE BAILEYC, ALI FACP CCDS Ot 427.31 12/07/2014 JOSE NEGRON FACC, ALI FACP CCDS Ot 427.81 12/07/2014 JOSE BAILEYC, ALI FACP CCDS Ot 440.8 12/07/2014 JOSE BAILEYC, ALI FACP CCDS Ot 447.1 12/11/2014 JOSE NEGRON FAC, ALI FACP CCDS Ot 447.1 12/11/2014 JOSE NEGRON FAC, ALI FACP CCDS Ot 447.1 12/13/2014 JOSE NEGRON FAC, ALI FACP CCDS Ot 447.1 01/03/2015 JOSE NEGRON FACC, ALI FACP CCDS Ot 447.1 01/04/2015 JOSE NEGRON FACC, ALI FACP CCDS Ot 401.9 01/04/2015 JOSE NEGRON FAC, ALI FACP CCDS Ot 427.31 01/04/2015 JOSE NEGRON FAC, ALI FACP CCDS Ot 427.81 01/04/2015 JOSE NEGRON FAC, ALI FACP CCDS Ot 440.8 01/04/2015 JOSE NEGRON FAC, ALI FACP CCDS Ot 447.1 03/07/2015 JOSE NEGRON FAC, ALI FACP CCDS Ot 447.1 04/11/2015 JOSE NEGRON FAC, ALI FACP CCDS Ot 173.91 04/11/[address] [facility], ALI FACP CCDS Ot 401.9 04/11/[address] [facility], ALI FACP CCDS Ot 424.1 04/11/[address] [facility], ALI FACP CCDS Ot 427.31 04/11/[address] [facility], ALI FACP CCDS Ot 427.81 04/11/[address] [facility], ALI FACP CCDS Ot 443.9 04/11/[address] [facility], ALI FACP CCDS Ot 447.1 04/12/2015 STACI NEGRON, GAGE Burkett Ot 793.8 0 08/23/2015 Ot N63 10/22/2015 STAR TREJO APRN Ot S92.351A DISP FX OF FIFTH METATARSAL BONE, RIGHT 10/22/2015 STAR TREJO APRN Ot X58.XXXA EXPOSURE TO OTHER SPECIFIED FACTORS, INI 10/22/2015 STAR TREJO APRN Ot Y92.[address] IN [facility] NON-INSTITUT (PRIVATE 10/22/2015 STAR TREJO APRN Ot Y99 .8 OTHER EXTERNAL CAUSE STATUS 10/24/2015 STAR TREJO APRN Ot S92.351A 10/24/2015 STAR TREJO APRN Ot X58.XXXA 10/24/2015 STAR TREJO DIRECTOR MEDICAL SAFETY Ot Y92.009 10/24/2015 STAR TREJO DIRECTOR MEDICAL SAFETY Ot Y99 .8 10/24/2015 GAGE SMALL MD Ot 793.8 9 10/24/2015 GAGE SMALL MD Ot 793.8 9 12/11/2015 SHIRA JANE SENIOR FORMULATION SCIENTIST Ot 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 8 OTHER EXTERNAL CAUSE STATUS 01/17/2016 SHIRA JANE SENIOR FORMULATION SCIENTIST Ot S82.65XD NONDISP FX OF LATERAL MALLEOLUS OF L FIB 01/17/2016 SHIRA JANE SENIOR FORMULATION SCIENTIST Ot X58.XXXD EXPOSURE TO OTHER SPECIFIED FACTORS, SUB 01/17/2016 SHIRA JANE SENIOR FORMULATION SCIENTIST Ot Y92.[address] IN [facility] NON-INSTITUT (PRIVATE 01/17/2016 SHRIA JANE SENIOR FORMULATION SCIENTIST Ot Y99. 8 OTHER EXTERNAL CAUSE STATUS 02/20/2016 GAGE SMALL MD Ot 793.8 9 OTH (ABN) FINDINGS ON RADIOLOGICAL EXAMI 02/20/2016 GAGE SMALL MD Ot R92.2 INCONCLUSIVE MAMMOGRAM 02/20/2016 GAGE SMALL MD Ot R92.2 INCONCLUSIVE MAMMOGRAM 02/21/2016 GAGE SMALL MD Ot R92.8 OTH ABN AND INCONCLUSIVE FINDINGS ON DX 02/26/2016 GAGE SMALL MD Ot R92.8 OTH ABN AND INCONCLUSIVE FINDINGS ON DX 03/13/2016 GAGE SMALL MD Ot R92.8 OTH ABN AND INCONCLUSIVE FINDINGS ON DX 04/21/2016 Ot 433.30 MUL T BILTRAL ARTERY OCCLUSION WO CEREBRA 04/21/2016 Ot 793.89 OTH (ABN) FINDINGS ON RADIOLOGICAL EXAMI 04/21/2016 Ot V76.12 OTH SCREEN MAMMO- MALIGN NEOPLASM OF GIOVANNI 04/21/2016 Ot 793.89 OTH (ABN) FINDINGS ON RADIOLOGICAL EXAMI 04/21/2016 Ot 610.0 SNOW TARY CYST OF BREAST 04/21/2016 Ot 785.2 CARD IAC MURMURS NEC 04/21/2016 Ot 427.31 ATR IAL FIBRILLATION 04/21/2016 Ot V72.84 EXA M PRE- OPERATIVE NOS 04/21/2016 GAGE SMALL MD Ot V76.1 2 OTH SCREEN MAMMO-MALIGN NEOPLASM OF GIOVANNI 04/21/2016 MARY NEGRON, CORTNEY Hagan Ot 173.31 BASAL CELL CARCINOMA OF SKIN OF OTH UN 04/21/2016 CORTNEY HERNANDEZ MD Ot V58.61 ANTICOAGULANTS,LT,CURRENT USE 04/21/2016 CORTNEY HERNANDEZ MD Ot V58.69 OTH MED,LT,CURRENT USE 04/21/2016 CORTNEY HERNANDEZ MD Ot 709.9 SKIN DISORDER NOS 04/21/2016 CORTNEY HERNANDEZ MD Ot V72.84 EXAM PRE-OPERATIVE NOS 04/21/2016 MARY NEGRON, CORTNEY Hagan Ot V74.8 SCREEN-BACTERIAL DIS NEC 04/21/2016 GAGE SMALL MD Ot 610.0 SOLITARY CYST OF BREAST 04/21/2016 GAGE SMALL MD Ot 793.8 9 OTH (ABN) FINDINGS ON RADIOLOGICAL EXAMI 04/21/2016 CORTNEY HERNANDEZ MD Ot 682.2 CELLULITIS OF TRUNK 04/21/2016 GAGE SMALL MD Ot 793.8 9 OTH (ABN) FINDINGS ON RADIOLOGICAL EXAMI 04/21/2016 LUIS NEGRON, LATASHA Fernandez Ot V15.88 HISTORY OF FALL 04/21/2016 LATASHA SMITH MD Ot V58.61 ANTICOAGULANTS,LT,CURRENT USE 04/21/2016 LATASHA SMITH MD Ot V58.83 ENCOUNTER FOR THERAPEUTIC DRUG MONITORIN 04/21/2016 JOSE NEGRON FACC, MAKI FACP CCDS Ot 401.9 HYPERTENSION NOS 04/21/2016 JOSE NEGRON FACC, ALI FACP CCDS Ot 427.31 ATRIAL FIBRILLATION 04/21/2016 JOSE NEGRON FACC, ALI FACP CCDS Ot 427.81 SINOATRIAL NODE DYSFUNCT 04/21/2016 JOSE NEGRON FACC, ALI FACP CCDS Ot 440.8 ATHEROSCLEROSIS NEC 04/21/2016 JOSE NEGRON FACC, ALI FACP CCDS Ot 447.1 STRICTURE OF ARTERY 04/21/2016 JOSE NEGRON FACC, ALI FACP CCDS Ot 447.1 STRICTURE OF ARTERY 04/21/2016 GAGE SMALL MD Ot 793.8 0 UNSPEC ABNORMAL MAMMOGRAM 04/21/2016 JOSE NEGRON FACC, MAKI FACP CCDS Ot 173.91 BASAL CELL CARCINOMA OF SKIN, SITE UNSPE 04/21/2016 JOSE NEGRON FACC, ALI FACP CCDS Ot 401.9 HYPERTENSION NOS 04/21/2016 JOSE NEGRON FACC, ALI FACP CCDS Ot 424.1 AORTIC VALVE DISORDER 04/21/2016 JOSE NEGRON FACC, ALI FACP CCDS Ot 427.31 ATRIAL FIBRILLATION 04/21/2016 JOSE NEGRON FACC, ALI FACP CCDS Ot 427.81 SINOATRIAL NODE DYSFUNCT 04/21/2016 JOSE NEGRON FACC, ALI FACP CCDS Ot 443.9 PERIPH VASCULAR DIS NOS 04/21/2016 JOSE NEGRON FACC, ALI FACP CCDS Ot 447.1 STRICTURE OF ARTERY 04/21/2016 Ot N63 UNSPEC IFIED LUMP IN BREAST 04/21/2016 GAGE SMALL MD Ot R92.8 OTH ABN AND INCONCLUSIVE FINDINGS ON DX 04/21/2016 GAGE SMALL MD Ot 793.8 9 OTH (ABN) FINDINGS ON RADIOLOGICAL EXAMI 04/21/2016 GAGE SMALL MD Ot R92.8 OTH ABN AND INCONCLUSIVE FINDINGS ON DX 04/21/2016 LATASHA SMITH MD Ot V15.88 HISTORY OF FALL 04/21/2016 LATASHA SMITH MD Ot V58.61 ANTICOAGULANTS,LT,CURRENT USE 04/21/2016 LATASHA SMITH MD Ot V58.83 ENCOUNTER FOR THERAPEUTIC DRUG MONITORIN 04/21/2016 MAKI GARCIA MD, FACC FACP CCDS Ot 401.9 HYPERTENSION NOS 04/21/2016 JOSE NEGRON FACC, ALI FACP CCDS Ot 427.31 ATRIAL FIBRILLATION 04/21/2016 JOSE BAILEYC, ALI FACP CCDS Ot 427.81 SINOATRIAL NODE DYSFUNCT 04/21/2016 JOSE NEGRON FACC, ALI FACP CCDS Ot 440.8 ATHEROSCLEROSIS NEC 04/21/2016 JOSE NEGRON FACC, ALI FACP CCDS Ot 447.1 STRICTURE OF ARTERY 04/21/2016 JOSE NEGRON FACC, ALI FACP CCDS Ot 447.1 STRICTURE OF ARTERY 04/21/2016 STACI NEGRON, GAGE Burkett Ot 793.8 0 UNSPEC ABNORMAL MAMMOGRAM 04/21/2016 JOSE NEGRON FACC, ALI FACP CCDS Ot 173.91 BASAL CELL CARCINOMA OF SKIN, SITE UNSPE 04/21/2016 JOSE NEGRON FACC, ALI FACP CCDS Ot 401.9 HYPERTENSION NOS 04/21/2016 JOSE NEGRON FACC, ALI FACP CCDS Ot 424.1 AORTIC VALVE DISORDER 04/21/2016 JOSE NEGRON FACC, ALI FACP CCDS Ot 427.31 ATRIAL FIBRILLATION 04/21/2016 JOSE NEGRON FACC, ALI FACP CCDS Ot 427.81 SINOATRIAL NODE DYSFUNCT 04/21/2016 JOSE NEGRON FACC, ALI FACP CCDS Ot 443.9 PERIPH VASCULAR DIS NOS 04/21/2016 JOSE NEGRON FACC, ALI FACP CCDS Ot 447.1 STRICTURE OF ARTERY 04/21/2016 Ot N63 UNSPEC IFIED LUMP IN BREAST 05/13/2016 STACI NEGRON, GAGE Burkett Ot R07.8 1 PLEURODYNIA 07/24/2016 LATASHA KIM MD P Ot M43.16 SPONDYLOLISTHESIS, LUMBAR REGION 07/24/2016 LATASHA KIM MD P Ot M54.16 RADICULOPATHY, LUMBAR REGION 08/12/2016 LATASHA KIM MD Ot M43.16 SPONDYLOLISTHESIS, LUMBAR REGION 08/12/2016 LATASHA KIM MD Ot M54.16 RADICULOPATHY, LUMBAR REGION 08/12/2016 JOSE NEGRON FACC, ALI FACP CCDS Ot G47.33 OBSTRUCTIVE SLEEP APNEA (ADULT) (PEDIATR 08/12/2016 JOSE NEGRON FACC, ALI FACP CCDS Ot 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 08/12/2016 JOSE NEGRON FACC, ALI FACP CCDS Ot I48.0 PAROXYSMAL ATRIAL FIBRILLATION 08/12/2016 JOSE NEGRON FACC, MAKI FACP CCDS Ot M54.5 LOW BACK PAIN 09/03/2016 JOSE NEGRON FACC, MAKI FACP CCDS Ot G47.33 OBSTRUCTIVE SLEEP APNEA (ADULT) (PEDIATR 09/03/2016 JOSE NEGRON FACC, ALI FACP CCDS Ot 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 09/03/2016 JOSE NEGRON FACC, MAKI FACP CCDS Ot I48.0 PAROXYSMAL ATRIAL FIBRILLATION 09/03/2016 JOSE NEGRON FACC, MAKI FACP CCDS Ot M54.5 LOW BACK PAIN 01/29/2017 LUIS NEGRON, LATASHA Fernandez Ot V15.88 HISTORY OF FALL 01/29/2017 LATASHA SMITH MD Ot V58.61 ANTICOAGULANTS,LT,CURRENT USE 01/29/2017 LATASHA SMITH MD Ot V58.83 ENCOUNTER FOR THERAPEUTIC DRUG MONITORIN 01/29/2017 MAKI GARCIA MD, FACC FACP CCDS Ot 401.9 HYPERTENSION NOS 01/29/2017 JOSE NEGRON FACC, MAKI FACP CCDS Ot 427.31 ATRIAL FIBRILLATION 01/29/2017 JOSE NEGRON FACC, MAKI FACP CCDS Ot 427.81 SINOATRIAL NODE DYSFUNCT 01/29/2017 JOSE NEGRON FACC, MAKI FACP CCDS Ot 440.8 ATHEROSCLEROSIS NEC 01/29/2017 JOSE NEGRON FACC, ALI FACP CCDS Ot 447.1 STRICTURE OF ARTERY 01/29/2017 JOSE NEGRON FACC, ALI FACP CCDS Ot 447.1 STRICTURE OF ARTERY 01/29/2017 STACI NEGRON, GAGE Burkett Ot 793.8 0 UNSPEC ABNORMAL MAMMOGRAM 01/29/2017 JOSE NEGRON FACC, ALI FACP CCDS Ot 173.91 BASAL CELL CARCINOMA OF SKIN, SITE UNSPE 01/29/2017 JOSE NEGRON FACC, ALI FACP CCDS Ot 401.9 HYPERTENSION NOS 01/29/2017 JOSE NEGRON FACC, MAKI FACP CCDS Ot 424.1 AORTIC VALVE DISORDER 01/29/2017 JOSE NEGRON FACC ALI FACP CCDS Ot 427.31 ATRIAL FIBRILLATION 01/29/2017 JOSE NEGRON FACC, MAKI FACP CCDS Ot 427.81 SINOATRIAL NODE DYSFUNCT 01/29/2017 JOSE NEGRON FACC, ALI FACP CCDS Ot 443.9 PERIPH VASCULAR DIS NOS 01/29/2017 JOSE NEGRON FACC, ALI FACP CCDS Ot 447.1 STRICTURE OF ARTERY 01/29/2017 Ot N63 UNSPEC IFIED LUMP IN BREAST 01/29/2017 GAGE SMALL MD Ot R07.8 1 PLEURODYNIA 01/29/2017 LATASHA KIM MD Ot M43.16 SPONDYLOLISTHESIS, LUMBAR REGION 01/29/2017 LATASHA KIM MD Ot M54.16 RADICULOPATHY, LUMBAR REGION 01/29/2017 JOSE NEGRON FAC, ALI FACP CCDS Ot G47.33 OBSTRUCTIVE SLEEP APNEA (ADULT) (PEDIATR 01/29/2017 JOSE BAILEYC, ALI FACP CCDS Ot 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 01/29/2017 JOSE NEGRON FACC, ALI FACP CCDS Ot I48.0 PAROXYSMAL ATRIAL FIBRILLATION 01/29/2017 JOSE NEGRON FACC, MAKI FACP CCDS Ot M54.5 LOW BACK PAIN 01/29/2017 GAGE SMALL MD Ot Z12.3 1 ENCNTR SCREEN MAMMOGRAM FOR MALIGNANT NE 01/29/2017 GAGE SMALL MD Ot Z12.3 1 ENCNTR SCREEN MAMMOGRAM FOR MALIGNANT NE 01/30/2017 GAGE SMALL MD Ot Z12.3 1 ENCNTR SCREEN MAMMOGRAM FOR MALIGNANT NE 02/25/2017 GAGE SMALL MD Ot Z12.3 1 ENCNTR SCREEN MAMMOGRAM FOR MALIGNANT NE 02/26/2017 GAGE SMALL MD Ot Z12.3 1 ENCNTR SCREEN MAMMOGRAM FOR MALIGNANT NE 02/26/2017 GAGE SMALL MD Ot Z12.3 1 ENCNTR SCREEN MAMMOGRAM FOR MALIGNANT NE 02/26/2017 LATASHA SMITH MD Ot V15.88 HISTORY OF FALL 02/26/2017 LATASHA SMITH MD Ot V58.61 ANTICOAGULANTS,LT,CURRENT USE 02/26/2017 LATASHA SMITH MD Ot V58.83 ENCOUNTER FOR THERAPEUTIC DRUG MONITORIN 02/26/2017 JOSE NEGRON FACC, MAKI FACP CCDS Ot 401.9 HYPERTENSION NOS 02/26/2017 JOSE NEGRON FACC, ALI FACP CCDS Ot 427.31 ATRIAL FIBRILLATION 02/26/2017 JOSE NEGRON FACC, ALI FACP CCDS Ot 427.81 SINOATRIAL NODE DYSFUNCT 02/26/2017 JOSE NEGRON FACC, ALI FACP CCDS Ot 440.8 ATHEROSCLEROSIS NEC 02/26/2017 JOSE NEGRON FACNithya, ALI FACP CCDS Ot 447.1 STRICTURE OF ARTERY 02/26/2017 JOSE NEGRON FACC, ALI FACP CCDS Ot 447.1 STRICTURE OF ARTERY 02/26/2017 GAGE SMALL MD Ot 793.8 0 UNSPEC ABNORMAL MAMMOGRAM 02/26/2017 JOSE NEGRON FACC, ALI FACP CCDS Ot 173.91 BASAL CELL CARCINOMA OF SKIN, SITE UNSPE 02/26/2017 JOSE BAILEYC, ALI FACP CCDS Ot 401.9 HYPERTENSION NOS 02/26/2017 JOSE NEGRON FACNithya, ALI FACP CCDS Ot 424.1 AORTIC VALVE DISORDER 02/26/2017 JOSE NEGRON FACNithya, ALI FACP CCDS Ot 427.31 ATRIAL FIBRILLATION 02/26/2017 JOSE NEGRON FACC, ALI FACP CCDS Ot 427.81 SINOATRIAL NODE DYSFUNCT 02/26/2017 JOSE NEGRON FACC, ALI FACP CCDS Ot 443.9 PERIPH VASCULAR DIS NOS 02/26/2017 JOSE NEGRON FACC, ALI FACP CCDS Ot 447.1 STRICTURE OF ARTERY 02/26/2017 Ot N63 UNSPEC IFIED LUMP IN BREAST 02/26/2017 GAGE SMALL MD Ot R07.8 1 PLEURODYNIA 02/26/2017 JULIO NEGRON, LATASHA Fernandez Ot M43.16 SPONDYLOLISTHESIS, LUMBAR REGION 02/26/2017 JULIO NEGRON, LATASHA Fernandez Ot M54.16 RADICULOPATHY, LUMBAR REGION 02/26/2017 JOSE NEGRON FACC, ALI FACP CCDS Ot G47.33 OBSTRUCTIVE SLEEP APNEA (ADULT) (PEDIATR 02/26/2017 JOSE NEGRON FACC, ALI FACP CCDS Ot 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 02/26/2017 JOSE NEGRON FACC, ALI FACP CCDS Ot I48.0 PAROXYSMAL ATRIAL FIBRILLATION 02/26/2017 JOSE NEGRON FACC, ALI FACP CCDS Ot M54.5 LOW BACK PAIN 02/26/2017 GAGE SMALL MD Ot Z12.3 1 ENCNTR SCREEN MAMMOGRAM FOR MALIGNANT NE 02/27/2017 GAGE SMALL MD Ot Z12.3 1 ENCNTR SCREEN MAMMOGRAM FOR MALIGNANT NE 03/04/2017 GAGE SMALL MD Ot Z12.3 1 ENCNTR SCREEN MAMMOGRAM FOR MALIGNANT NE 03/20/2017 GAGE SMALL MD Ot Z12.3 1 ENCNTR SCREEN MAMMOGRAM FOR MALIGNANT NE 07/10/2017 LATASHA SMITH MD Ot V15.88 HISTORY OF FALL 07/10/2017 LATASHA SMITH MD Ot V58.61 ANTICOAGULANTS,LT,CURRENT USE 07/10/2017 LATASHA SMITH MD Ot V58.83 ENCOUNTER FOR THERAPEUTIC DRUG MONITORIN 07/10/2017 JSOE NEGRON FACC, ALI FACP CCDS Ot 401.9 HYPERTENSION NOS 07/10/2017 JOSE NEGRON FACC, ALI FACP CCDS Ot 427.31 ATRIAL FIBRILLATION 07/10/2017 JOSE NEGRON FACC, ALI FACP CCDS Ot 427.81 SINOATRIAL NODE DYSFUNCT 07/10/2017 JOSE NEGRON FACC, ALI FACP CCDS Ot 440.8 ATHEROSCLEROSIS NEC 07/10/2017 JOSE NEGRON FACC, ALI FACP CCDS Ot 447.1 STRICTURE OF ARTERY 07/10/2017 JOSE NEGRON FACC, ALI FACP CCDS Ot 447.1 STRICTURE OF ARTERY 07/10/2017 GAGE SMALL MD Ot 793.8 0 UNSPEC ABNORMAL MAMMOGRAM 07/10/2017 JOSE NEGRON FACC, ALI FACP CCDS Ot 173.91 BASAL CELL CARCINOMA OF SKIN, SITE UNSPE 07/10/2017 JOSE BAILEYC, ALI FACP CCDS Ot 401.9 HYPERTENSION NOS 07/10/2017 JOSE NEGRON FACC, ALI FACP CCDS Ot 424.1 AORTIC VALVE DISORDER 07/10/2017 JOSE NEGRON FACC, ALI FACP CCDS Ot 427.31 ATRIAL FIBRILLATION 07/10/2017 JOSE NEGRON FACC, ALI FACP CCDS Ot 427.81 SINOATRIAL NODE DYSFUNCT 07/10/2017 JOSE NEGRON FACC, ALI FACP CCDS Ot 443.9 PERIPH VASCULAR DIS NOS 07/10/2017 JOSE NEGRON FACC, ALI FACP CCDS Ot 447.1 STRICTURE OF ARTERY 07/10/2017 Ot N63 UNSPEC IFIED LUMP IN BREAST 07/10/2017 GAGE SMALL MD Ot R07.8 1 PLEURODYNIA 07/10/2017 LATASHA KIM MD Ot M43.16 SPONDYLOLISTHESIS, LUMBAR REGION 07/10/2017 LATASHA KIM MD Ot M54.16 RADICULOPATHY, LUMBAR REGION 07/10/2017 JOSE BAILEY, ALI FACP CCDS Ot G47.33 OBSTRUCTIVE SLEEP APNEA (ADULT) (PEDIATR 07/10/2017 JOSE NEGRON FACC, ALI FACP CCDS Ot 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 07/10/2017 JOSE NEGRON FACC, ALI FACP CCDS Ot I48.0 PAROXYSMAL ATRIAL FIBRILLATION 07/10/2017 JOSE NEGRON FACC, ALI FACP CCDS Ot M54.5 LOW BACK PAIN 07/10/2017 STACI NEGRON, GAGE Burkett Ot Z12.3 1 ENCNTR SCREEN MAMMOGRAM FOR MALIGNANT NE 07/20/2017 DONNA LOZANO L SENIOR FORMULATION SCIENTIST Ot 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 OF AORTA 07/20/2017 DONNA LOZANO L SENIOR FORMULATION SCIENTIST Ot 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 07/20/2017 DONNA LOZANO L SENIOR FORMULATION SCIENTIST Ot J98.4 OTHER DISORDERS OF LUNG 07/20/2017 WARNER LOZANOHER L SENIOR FORMULATION SCIENTIST Ot K76.89 OTHER SPECIFIED DISEASES OF LIVER 07/20/2017 WARNER LOZANOHER L SENIOR FORMULATION SCIENTIST Ot Z87.39 PERSONAL HISTORY OF DISEASES OF THE MS S 08/13/2017 DONNA LOZANO L SENIOR FORMULATION SCIENTIST Ot 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 OF AORTA 08/13/2017 DONNA LOZANO L SENIOR FORMULATION SCIENTIST Ot 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 08/13/2017 DONNA LOZANO L SENIOR FORMULATION SCIENTIST Ot J98.4 OTHER DISORDERS OF LUNG 08/13/2017 DONNA LOZANO L SENIOR FORMULATION SCIENTIST Ot K76.89 OTHER SPECIFIED DISEASES OF LIVER 08/13/2017 WARNER LOZANOHER L SENIOR FORMULATION SCIENTIST Ot Z87.39 PERSONAL HISTORY OF DISEASES OF THE MS S 08/13/2017 DONNA LOZANO L SENIOR FORMULATION SCIENTIST Ot 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 OF AORTA 08/13/2017 DONNA LOZANO L SENIOR FORMULATION SCIENTIST Ot 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 61 ACHILLES TENDINITIS, RIGHT LEG 09/10/2017 ANNETTE DPM, BECCA Q Ot S93.601A UNSPECIFIED SPRAIN OF RIGHT FOOT, INITIA 09/10/2017 ANNETTE DPM, BECCA Q Ot Z87.828 PERSONAL HISTORY OF OTH (HEALED) PHYSICA 10/21/2017 Ot V72.84 EXA M PRE- OPERATIVE NOS 10/21/2017 STACI NEGRON, GAGE Burkett Ot V76.1 2 OTH SCREEN MAMMO-MALIGN NEOPLASM OF GIOVANNI 10/21/2017 MARY NEGRON, CORTNEY Hagan Ot 173.31 BASAL CELL CARCINOMA OF SKIN OF OTH UN 10/21/2017 CORTNEY HERNANDEZ MD Ot V58.61 ANTICOAGULANTS,LT,CURRENT USE 10/21/2017 CORTNEY HERNANDEZ MD Ot V58.69 OTH MED,LT,CURRENT USE 10/21/2017 CORTNEY HERNANDEZ MD Ot 709.9 SKIN DISORDER NOS 10/21/2017 CORTNEY HERNANDEZ MD Ot V72.84 EXAM PRE-OPERATIVE NOS 10/21/2017 CORTNEY HERNANDEZ MD Ot V74.8 SCREEN-BACTERIAL DIS NEC 10/21/2017 GAGE SMALL MD Ot 610.0 SOLITARY CYST OF BREAST 10/21/2017 GAGE SMALL MD Ot 793.8 9 OTH (ABN) FINDINGS ON RADIOLOGICAL EXAMI 10/21/2017 CORTNEY HERNANDEZ MD Ot 682.2 CELLULITIS OF TRUNK 10/21/2017 GAGE SMALL MD Ot 793.8 9 OTH (ABN) FINDINGS ON RADIOLOGICAL EXAMI 10/21/2017 LATASHA SMITH MD Ot V15.88 HISTORY OF FALL 10/21/2017 LATASHA SMITH MD Ot V58.61 ANTICOAGULANTS,LT,CURRENT USE 10/21/2017 LATASHA SMITH MD Ot V58.83 ENCOUNTER FOR THERAPEUTIC DRUG MONITORIN 10/21/2017 JOSE NEGRON FACC, ALI FACP CCDS Ot 401.9 HYPERTENSION NOS 10/21/2017 JOSE NEGRON FACC, ALI FACP CCDS Ot 427.31 ATRIAL FIBRILLATION 10/21/2017 JOSE NEGRON FACC, ALI FACP CCDS Ot 427.81 SINOATRIAL NODE DYSFUNCT 10/21/2017 JOSE NEGRON FACC, ALI FACP CCDS Ot 440.8 ATHEROSCLEROSIS NEC 10/21/2017 JOSE NEGRON FACC, ALI FACP CCDS Ot 447.1 STRICTURE OF ARTERY 10/21/2017 JOSE NEGRON FACC, ALI FACP CCDS Ot 447.1 STRICTURE OF ARTERY 10/21/2017 GAGE SMALL MD Ot 793.8 0 UNSPEC ABNORMAL MAMMOGRAM 10/21/2017 JOSE NEGRON FACC, ALI FACP CCDS Ot 173.91 BASAL CELL CARCINOMA OF SKIN, SITE UNSPE 10/21/2017 JOSE NEGRON FACC, ALI FACP CCDS Ot 401.9 HYPERTENSION NOS 10/21/2017 JOSE NEGRON FACC, ALI FACP CCDS Ot 424.1 AORTIC VALVE DISORDER 10/21/2017 JOSE NEGRON FACC, ALI FACP CCDS Ot 427.31 ATRIAL FIBRILLATION 10/21/2017 JOSE NEGRON FACC, ALI FACP CCDS Ot 427.81 SINOATRIAL NODE DYSFUNCT 10/21/2017 JOSE NEGRON FACC, ALI FACP CCDS Ot 443.9 PERIPH VASCULAR DIS NOS 10/21/2017 JOSE NEGRON FACC, ALI FACP CCDS Ot 447.1 STRICTURE OF ARTERY 10/21/2017 Ot N63 UNSPEC IFIED LUMP IN BREAST 10/21/2017 GAGE SMALL MD Ot R92.8 OTH ABN AND INCONCLUSIVE FINDINGS ON DX 10/21/2017 GAGE SMALL MD Ot R07.8 1 PLEURODYNIA 10/21/2017 LATASHA KIM MD Ot M43.16 SPONDYLOLISTHESIS, LUMBAR REGION 10/21/2017 LATASHA KIM MD Ot M54.16 RADICULOPATHY, LUMBAR REGION 10/21/2017 JOSE NEGRON FACC, ALI FACP CCDS Ot G47.33 OBSTRUCTIVE SLEEP APNEA (ADULT) (PEDIATR 10/21/2017 JOSE NEGRON FACC, ALI FACP CCDS Ot 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 10/21/2017 JOSE NEGRON FAC, ALI LEOP CCDS Ot I48.0 PAROXYSMAL ATRIAL FIBRILLATION 10/21/2017 JOSE NEGRON FACC, ALI FACP CCDS Ot M54.5 LOW BACK PAIN 10/21/2017 STACI NEGRON, GAGE Burkett Ot Z12.3 1 ENCNTR SCREEN MAMMOGRAM FOR MALIGNANT NE 10/21/2017 MARTA DONNA L SENIOR FORMULATION SCIENTIST Ot 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 OF AORTA 10/21/2017 MARTA DONNA L SENIOR FORMULATION SCIENTIST Ot 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 61 ACHILLES TENDINITIS, RIGHT LEG 10/21/2017 ANNETTE DPM, BECCA Q Ot S93.601A UNSPECIFIED SPRAIN OF RIGHT FOOT, INITIA 10/21/2017 ANNETTE DPM, BECCA Q Ot Z87.828 PERSONAL HISTORY OF OTH (HEALED) PHYSICA 10/22/2017 Ot V72.84 EXA M PRE- OPERATIVE NOS 10/22/2017 STACI NEGRON, GAGE Burkett Ot V76.1 2 OTH SCREEN MAMMO-MALIGN NEOPLASM OF GIOVANNI 10/22/2017 CORTNEY HERNANDEZ MD Ot 173.31 BASAL CELL CARCINOMA OF SKIN OF OTH UN 10/22/2017 CORTNEY HERNANDEZ MD Ot V58.61 ANTICOAGULANTS,LT,CURRENT USE 10/22/2017 CORTNEY HERNANDEZ MD Ot V58.69 OTH MED,LT,CURRENT USE 10/22/2017 CORTNEY HERNANDEZ MD Ot 709.9 SKIN DISORDER NOS 10/22/2017 CORTNEY HERNANDEZ MD Ot V72.84 EXAM PRE-OPERATIVE NOS 10/22/2017 CORTNEY HERNANDEZ MD Ot V74.8 SCREEN-BACTERIAL DIS NEC 10/22/2017 GAGE SMALL MD Ot 610.0 SOLITARY CYST OF BREAST 10/22/2017 GAGE SMALL MD Ot 793.8 9 OTH (ABN) FINDINGS ON RADIOLOGICAL EXAMI 10/22/2017 CORTNEY HERNANDEZ MD Ot 682.2 CELLULITIS OF TRUNK 10/22/2017 GAGE SMALL MD Ot 793.8 9 OTH (ABN) FINDINGS ON RADIOLOGICAL EXAMI 10/22/2017 LATASHA SMITH MD Ot V15.88 HISTORY OF FALL 10/22/2017 LATASHA SMITH MD Ot V58.61 ANTICOAGULANTS,LT,CURRENT USE 10/22/2017 LATASHA SMITH MD Ot V58.83 ENCOUNTER FOR THERAPEUTIC DRUG MONITORIN 10/22/2017 JOSE NEGRON FACC, MAKI FACP CCDS Ot 401.9 HYPERTENSION NOS 10/22/2017 JOSE NEGRON FACC, ALI FACP CCDS Ot 427.31 ATRIAL FIBRILLATION 10/22/2017 JOSE NEGRON FACC, ALI FACP CCDS Ot 427.81 SINOATRIAL NODE DYSFUNCT 10/22/2017 JOSE NEGRON FACC, ALI FACP CCDS Ot 440.8 ATHEROSCLEROSIS NEC 10/22/2017 JOSE NEGRON FACC, ALI FACP CCDS Ot 447.1 STRICTURE OF ARTERY 10/22/2017 JOSE NEGRON FACC, ALI FACP CCDS Ot 447.1 STRICTURE OF ARTERY 10/22/2017 GAGE SMALL MD Ot 793.8 0 UNSPEC ABNORMAL MAMMOGRAM 10/22/2017 JOSE NEGRON FACC, ALI FACP CCDS Ot 173.91 BASAL CELL CARCINOMA OF SKIN, SITE UNSPE 10/22/2017 JOSE NEGRON FACC, ALI FACP CCDS Ot 401.9 HYPERTENSION NOS 10/22/2017 JOSE NEGRON FACC, ALI FACP CCDS Ot 424.1 AORTIC VALVE DISORDER 10/22/2017 JOSE NEGRON FACC, ALI FACP CCDS Ot 427.31 ATRIAL FIBRILLATION 10/22/2017 JOSE NEGRON FACC, ALI FACP CCDS Ot 427.81 SINOATRIAL NODE DYSFUNCT 10/22/2017 JOSE NEGRON FACC, ALI FACP CCDS Ot 443.9 PERIPH VASCULAR DIS NOS 10/22/2017 JOSE MD FACC, ALI FACP CCDS Ot 447.1 STRICTURE OF ARTERY 10/22/2017 Ot N63 UNSPEC IFIED LUMP IN BREAST 10/22/2017 STACI NEGRON, GAGE Burkett Ot R92.8 OTH ABN AND INCONCLUSIVE FINDINGS ON DX 10/22/2017 GAGE SMALL MD Ot R07.8 1 PLEURODYNIA 10/22/2017 JULIO NEGRON, LATASHA Fernandez Ot M43.16 SPONDYLOLISTHESIS, LUMBAR REGION 10/22/2017 JULIO NEGRON, LATASHA Fernandez Ot M54.16 RADICULOPATHY, LUMBAR REGION 10/22/2017 JOSE NEGRON FACC, ALI FACP CCDS Ot G47.33 OBSTRUCTIVE SLEEP APNEA (ADULT) (PEDIATR 10/22/2017 JOSE NEGRON FACC, ALI FACP CCDS Ot 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 10/22/2017 JOSE NEGRON FACC, ALI FACP CCDS Ot I48.0 PAROXYSMAL ATRIAL FIBRILLATION 10/22/2017 JOSE NEGRON FACC, ALI FACP CCDS Ot M54.5 LOW BACK PAIN 10/22/2017 GAGE SMALL MD Ot Z12.3 1 ENCNTR SCREEN MAMMOGRAM FOR MALIGNANT NE 10/22/2017 DONNA LOZANO SENIOR FORMULATION SCIENTIST Ot 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 OF AORTA 10/22/2017 DONNA LOZANO SENIOR FORMULATION SCIENTIST Ot 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 61 ACHILLES TENDINITIS, RIGHT LEG 10/22/2017 ANNETTE DPM, BECCA Q Ot S93.601A UNSPECIFIED SPRAIN OF RIGHT FOOT, INITIA 10/22/2017 ANNETTE DPM, BECCA Q Ot Z87.828 PERSONAL HISTORY OF OTH (HEALED) PHYSICA 10/22/2017 DEIDRA LORD MD Ot Z01.81 8 ENCOUNTER FOR OTHER PREPROCEDURAL EXAMIN 10/22/2017 DEIDRA LORD MD Ot Z12.11 ENCOUNTER FOR SCREENING FOR MALIGNANT NE 10/22/2017 DEIDRA LORD MD Ot Z80.0 FAMILY HISTORY OF MALIGNANT NEOPLASM OF 10/23/2017 DEIDRA LORD MD Ot Z01.81 8 ENCOUNTER FOR OTHER PREPROCEDURAL EXAMIN 10/23/2017 DEIDRA LORD MD Ot Z12.11 ENCOUNTER FOR SCREENING FOR MALIGNANT NE 10/23/2017 DEIDRA LORD MD, Ot Z80.0 FAMILY HISTORY OF MALIGNANT NEOPLASM OF 10/28/2017 Ot V72.84 EXA M PRE- OPERATIVE NOS 10/28/2017 GAGE SMALL MD Ot V76.1 2 OTH SCREEN MAMMO-MALIGN NEOPLASM OF GIOVANNI 10/28/2017 CORTNEY HERNANDEZ MD Ot 173.31 BASAL CELL CARCINOMA OF SKIN OF OTH UN 10/28/2017 CORTNEY HERNANDEZ MD Ot V58.61 ANTICOAGULANTS,LT,CURRENT USE 10/28/2017 CORTNEY HERNANDEZ MD Ot V58.69 OTH MED,LT,CURRENT USE 10/28/2017 CORTNEY HERNANDEZ MD Ot 709.9 SKIN DISORDER NOS 10/28/2017 CORTNEY HERNANDEZ MD Ot V72.84 EXAM PRE-OPERATIVE NOS 10/28/2017 CORTNEY HERNANDEZ MD Ot V74.8 SCREEN-BACTERIAL DIS NEC 10/28/2017 GAGE SMALL MD Ot 610.0 SOLITARY CYST OF BREAST 10/28/2017 GAGE SMALL MD Ot 793.8 9 OTH (ABN) FINDINGS ON RADIOLOGICAL EXAMI 10/28/2017 CORTNEY HERNANDEZ MD Ot 682.2 CELLULITIS OF TRUNK 10/28/2017 GAGE SMALL MD Ot 793.8 9 OTH (ABN) FINDINGS ON RADIOLOGICAL EXAMI 10/28/2017 LATASHA SMITH MD Ot V15.88 HISTORY OF FALL 10/28/2017 LATASHA SMITH MD Ot V58.61 ANTICOAGULANTS,LT,CURRENT USE 10/28/2017 LATASHA SMITH MD Ot V58.83 ENCOUNTER FOR THERAPEUTIC DRUG MONITORIN 10/28/2017 JOSE NEGRON FACC, ALI FACP CCDS Ot 401.9 HYPERTENSION NOS 10/28/2017 JOSE NEGRON FACC, ALI FACP CCDS Ot 427.31 ATRIAL FIBRILLATION 10/28/2017 JOSE NEGRON FACC, ALI FACP CCDS Ot 427.81 SINOATRIAL NODE DYSFUNCT 10/28/2017 JOSE NEGRON FACC, ALI FACP CCDS Ot 440.8 ATHEROSCLEROSIS NEC 10/28/2017 JOSE NEGRON FACC, ALI FACP CCDS Ot 447.1 STRICTURE OF ARTERY 10/28/2017 JOSE NEGRON FACC, ALI FACP CCDS Ot 447.1 STRICTURE OF ARTERY 10/28/2017 STACI NEGRON, GAGE Burkett Ot 793.8 0 UNSPEC ABNORMAL MAMMOGRAM 10/28/2017 JOSE NEGRON FACC, ALI FACP CCDS Ot 173.91 BASAL CELL CARCINOMA OF SKIN, SITE UNSPE 10/28/2017 JOSE BAILEYC, ALI FACP CCDS Ot 401.9 HYPERTENSION NOS 10/28/2017 JOSE NEGRON FACC, ALI FACP CCDS Ot 424.1 AORTIC VALVE DISORDER 10/28/2017 JOSE NEGRON FACC, ALI FACP CCDS Ot 427.31 ATRIAL FIBRILLATION 10/28/2017 JOSE NEGRON FACC, ALI FACP CCDS Ot 427.81 SINOATRIAL NODE DYSFUNCT 10/28/2017 JOSE NEGRON FACC, ALI FACP CCDS Ot 443.9 PERIPH VASCULAR DIS NOS 10/28/2017 JOSE NEGRON FACC, ALI FACP CCDS Ot 447.1 STRICTURE OF ARTERY 10/28/2017 Ot N63 UNSPEC IFIED LUMP IN BREAST 10/28/2017 GAGE SMALL MD Ot R92.8 OTH ABN AND INCONCLUSIVE FINDINGS ON DX 10/28/2017 GAGE SMALL MD Ot R07.8 1 PLEURODYNIA 10/28/2017 LATASHA KIM MD Ot M43.16 SPONDYLOLISTHESIS, LUMBAR REGION 10/28/2017 LATASHA KIM MD Ot M54.16 RADICULOPATHY, LUMBAR REGION 10/28/2017 JOSE NEGRON FACC, ALI FACP CCDS Ot G47.33 OBSTRUCTIVE SLEEP APNEA (ADULT) (PEDIATR 10/28/2017 JOSE NEGRON FACC, ALI FACP CCDS Ot 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 10/28/2017 JOSE NEGRON FAC, ALI LILIANA CCDS Ot I48.0 PAROXYSMAL ATRIAL FIBRILLATION 10/28/2017 JOSE NEGRON FAC, MAKI FORD CCDS Ot M54.5 LOW BACK PAIN 10/28/2017 STACI NEGRON, GAGE Burkett Ot Z12.3 1 ENCNTR SCREEN MAMMOGRAM FOR MALIGNANT NE 10/28/2017 DONNA LOZANO SENIOR FORMULATION SCIENTIST Ot 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 OF AORTA 10/28/2017 DONNA LOZANO SENIOR FORMULATION SCIENTIST Ot 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 61 ACHILLES TENDINITIS, RIGHT LEG 10/28/2017 ANNETTE DPM, BECCA Q Ot S93.601A UNSPECIFIED SPRAIN OF RIGHT FOOT, INITIA 10/28/2017 ANNETTE DPM, BECCA Q Ot Z87.828 PERSONAL HISTORY OF OTH (HEALED) PHYSICA 10/30/2017 DEIDRA LROD MD Ot G47.30 SLEEP APNEA, UNSPECIFIED 10/30/2017 DEIDRA LORD MD Ot I10 ESSENTIAL (PRIMARY) HYPERTENSION 10/30/2017 DEIDRA LORD MD Ot I48.91 UNSPECIFIED ATRIAL FIBRILLATION 10/30/2017 DEIDRA LORD MD Ot K21.0 GASTRO-ESOPHAGEAL REFLUX DISEASE WITH ES 10/30/2017 DEIDRA LORD MD, Ot K22.2 ESOPHAGEAL OBSTRUCTION 10/30/2017 DEIDRA LORD MD, Ot K29.70 GASTRITIS, UNSPECIFIED, WITHOUT BLEEDING 10/30/2017 KIDO MD, TAKAAKI Ot K59.00 CONSTIPATION, UNSPECIFIED 10/30/2017 DEIDRA LORD MD Ot K64.1 SECOND DEGREE HEMORRHOIDS 10/30/2017 DEIDRA LORD MD, Ot Z12.11 ENCOUNTER FOR SCREENING FOR MALIGNANT NE 10/30/2017 DEIDRA LORD MD, Ot Z79.01 RETIREMENT (CURRENT) USE OF ANTICOAGULANT 10/30/2017 DEIDRA LORD MD, Ot Z79.89 9 OTHER RETIREMENT (CURRENT) DRUG THERAPY 10/30/2017 DEIDRA LORD MD, Ot Z80.0 FAMILY HISTORY OF MALIGNANT NEOPLASM OF 11/03/2017 DEIDRA LORD MD, Ot G47.30 SLEEP APNEA, UNSPECIFIED 11/03/2017 DEIDRA LORD MD, Ot I10 ESSENTIAL (PRIMARY) HYPERTENSION 11/03/2017 DEIDRA LORD MD, Ot I48.91 UNSPECIFIED ATRIAL FIBRILLATION 11/03/2017 DEIDRA LORD MD, Ot K21.0 GASTRO-ESOPHAGEAL REFLUX DISEASE WITH ES 11/03/2017 DEIDRA LORD MD, Ot K22.2 ESOPHAGEAL OBSTRUCTION 11/03/2017 DEIDRA LORD MD Ot K29.70 GASTRITIS, UNSPECIFIED, WITHOUT BLEEDING 11/03/2017 DEIDRA LORD MD Ot K59.00 CONSTIPATION, UNSPECIFIED 11/03/2017 DEIDRA LORD MD, Ot K64.1 SECOND DEGREE HEMORRHOIDS 11/03/2017 DEIDRA LORD MD, Ot Z12.11 ENCOUNTER FOR SCREENING FOR MALIGNANT NE 11/03/2017 DEIDRA LORD MD, Ot Z79.01 RETIREMENT (CURRENT) USE OF ANTICOAGULANT 11/03/2017 DEIDRA LORD MD, Ot Z79.89 9 OTHER RETIREMENT (CURRENT) DRUG THERAPY 11/03/2017 DEIDRA LORD MD, Ot Z80.0 FAMILY HISTORY OF MALIGNANT NEOPLASM OF 01/28/2018 ANNETTE DPM, BECCA Q Ot G57. 51 TARSAL TUNNEL SYNDROME, RIGHT LOWER LIMB 01/28/2018 ANNETTE DPM, BECCA Q Ot M19.071 PRIMARY OSTEOARTHRITIS, RIGHT ANKLE AND 01/28/2018 ANNETTE DPM, BECCA Q Ot G57. 51 TARSAL TUNNEL SYNDROME, RIGHT LOWER LIMB 01/28/2018 ANNETTE DPM, BECCA Q Ot M19.071 PRIMARY OSTEOARTHRITIS, RIGHT ANKLE AND 03/02/2018 ANNETTE DPM, BECCA Q Ot G57. 51 TARSAL TUNNEL SYNDROME, RIGHT LOWER LIMB 03/02/2018 ANNETTE DPM, BECCA Q Ot M19.071 PRIMARY OSTEOARTHRITIS, RIGHT ANKLE AND 03/08/2018 Ot V72.84 EXA M PRE- OPERATIVE NOS 03/08/2018 GAGE SMALL MD Ot V76.1 2 OTH SCREEN MAMMO-MALIGN NEOPLASM OF GIOVANNI 03/08/2018 CORTNEY HERNANDEZ MD Ot 173.31 BASAL CELL CARCINOMA OF SKIN OF OTH UN 03/08/2018 CORTNEY HERNANEDZ MD Ot V58.61 ANTICOAGULANTS,LT,CURRENT USE 03/08/2018 CORTNEY HERNANDEZ MD Ot V58.69 OTH MED,LT,CURRENT USE 03/08/2018 CORTNEY HERNANDEZ MD Ot 709.9 SKIN DISORDER NOS 03/08/2018 CORTNEY HERNANDEZ MD Ot V72.84 EXAM PRE-OPERATIVE NOS 03/08/2018 CORTNEY HERNANDEZ MD Ot V74.8 SCREEN-BACTERIAL DIS NEC 03/08/2018 GAGE SMALL MD Ot 610.0 SOLITARY CYST OF BREAST 03/08/2018 GAGE SMALL MD Ot 793.8 9 OTH (ABN) FINDINGS ON RADIOLOGICAL EXAMI 03/08/2018 CORTNEY HERNANDEZ MD Ot 682.2 CELLULITIS OF TRUNK 03/08/2018 GAGE SMALL MD Ot 793.8 9 OTH (ABN) FINDINGS ON RADIOLOGICAL EXAMI 03/08/2018 LATASHA SMITH MD Ot V15.88 HISTORY OF FALL 03/08/2018 LATASHA SMITH MD Ot V58.61 ANTICOAGULANTS,LT,CURRENT USE 03/08/2018 LATASHA SMITH MD Ot V58.83 ENCOUNTER FOR THERAPEUTIC DRUG MONITORIN 03/08/2018 JOSE NEGRON FACC, MAKI FACP CCDS Ot 401.9 HYPERTENSION NOS 03/08/2018 JOSE NEGRON FACC, MAKI FACP CCDS Ot 427.31 ATRIAL FIBRILLATION 03/08/2018 JOSE NEGRON FACC, MAKI FACP CCDS Ot 427.81 SINOATRIAL NODE DYSFUNCT 03/08/2018 JOSE NEGRON FACC, MAKI FACP CCDS Ot 440.8 ATHEROSCLEROSIS NEC 03/08/2018 JOSE NEGRON FACC, MAKI FACP CCDS Ot 447.1 STRICTURE OF ARTERY 03/08/2018 JOSE NEGRON FACC, ALI FACP CCDS Ot 447.1 STRICTURE OF ARTERY 03/08/2018 GAGE SMALL MD Ot 793.8 0 UNSPEC ABNORMAL MAMMOGRAM 03/08/2018 JOES NEGRON FACC, ALI FACP CCDS Ot 173.91 BASAL CELL CARCINOMA OF SKIN, SITE UNSPE 03/08/2018 JOSE NEGRON FACC, ALI FACP CCDS Ot 401.9 HYPERTENSION NOS 03/08/2018 JOSE NEGRON FACNithya, ALI FACP CCDS Ot 424.1 AORTIC VALVE DISORDER 03/08/2018 JOSE NEGRON FACC, ALI FACP CCDS Ot 427.31 ATRIAL FIBRILLATION 03/08/2018 JOSE NEGRON FACC, ALI FACP CCDS Ot 427.81 SINOATRIAL NODE DYSFUNCT 03/08/2018 JOSE NEGRON FACC, ALI FACP CCDS Ot 443.9 PERIPH VASCULAR DIS NOS 03/08/2018 JOSE NEGRON FACC, ALI FACP CCDS Ot 447.1 STRICTURE OF ARTERY 03/08/2018 Ot N63 UNSPEC IFIED LUMP IN BREAST 03/08/2018 GAGE SMALL MD Ot R92.8 OTH ABN AND INCONCLUSIVE FINDINGS ON DX 03/08/2018 GAGE SMALL MD Ot R07.8 1 PLEURODYNIA 03/08/2018 LATASHA KIM MD Ot M43.16 SPONDYLOLISTHESIS, LUMBAR REGION 03/08/2018 LATASHA KIM MD Ot M54.16 RADICULOPATHY, LUMBAR REGION 03/08/2018 JOSE NEGRON FACC, ALI FACP CCDS Ot G47.33 OBSTRUCTIVE SLEEP APNEA (ADULT) (PEDIATR 03/08/2018 JOSE NEGRON FACC, ALI FACP CCDS Ot 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 03/08/2018 JOSE NEGRON FACC, ALI FACP CCDS Ot I48.0 PAROXYSMAL ATRIAL FIBRILLATION 03/08/2018 JOSE NEGRON FACC, ALI FACP CCDS Ot M54.5 LOW BACK PAIN 03/08/2018 GAGE SMALL MD Ot Z12.3 1 ENCNTR SCREEN MAMMOGRAM FOR MALIGNANT NE 03/08/2018 DONNA LOZANO SENIOR FORMULATION SCIENTIST Ot 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 OF AORTA 03/08/2018 DONNA LOZANO SENIOR FORMULATION SCIENTIST Ot 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 61 ACHILLES TENDINITIS, RIGHT LEG 03/08/2018 ANNETTE DPM, BECCA Q Ot S93.601A UNSPECIFIED SPRAIN OF RIGHT FOOT, INITIA 03/08/2018 ANNETTE DPM, BECCA Q Ot Z87.828 PERSONAL HISTORY OF OTH (HEALED) PHYSICA 03/08/2018 ANNETTE DPM, BECCA Q Ot G57. 51 TARSAL TUNNEL SYNDROME, RIGHT LOWER LIMB 03/08/2018 ANNETTE DPM, BECCA Q Ot M19.071 PRIMARY OSTEOARTHRITIS, RIGHT ANKLE AND 03/08/2018 STACI NEGRON, GAGE Burkett Ot Z12.3 1 ENCNTR SCREEN MAMMOGRAM FOR MALIGNANT NE 03/09/2018 GAGE SMALL MD Ot Z12.3 1 ENCNTR SCREEN MAMMOGRAM FOR MALIGNANT NE 03/22/2018 KENNY KOENIG MD Ot G62. 9 POLYNEUROPATHY, UNSPECIFIED 03/22/2018 KENNY KOENIG MD Ot H40. 9 UNSPECIFIED GLAUCOMA 03/22/2018 KENNY KOENIG MD Ot I10 ESSENTIAL (PRIMARY) HYPERTENSION 03/22/2018 KENNY KOENIG MD Ot I48. 0 PAROXYSMAL ATRIAL FIBRILLATION 03/22/2018 KENNY KOENIG MD Ot K59. 09 OTHER CONSTIPATION 03/22/2018 KENNY KOENIG MD Ot L40. 9 PSORIASIS, UNSPECIFIED 03/22/2018 KENNY KOENIG MD Ot R42 DIZZINESS AND GIDDINESS 03/22/2018 KENNY KOENIG MD Ot Z79. 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 51 TARSAL TUNNEL SYNDROME, RIGHT LOWER LIMB 04/08/2018 ANNETTE DPM, BECCA Q Ot M19.071 PRIMARY OSTEOARTHRITIS, RIGHT ANKLE AND 06/28/2018 TOVA EDWARDS DIRECTOR MEDICAL SAFETY Ot M17.11 UNILATERAL PRIMARY OSTEOARTHRITIS, RIGHT 06/28/2018 TOVA EDWARDS DIRECTOR MEDICAL SAFETY Ot S89.91XA UNSPECIFIED INJURY OF RIGHT LOWER LEG, I 06/28/2018 TOVA EDWARDS DIRECTOR MEDICAL SAFETY Ot W19.XXXA UNSPECIFIED FALL, INITIAL ENCOUNTER 06/29/2018 NYA NEGRON, FABIANA Robbins Ot M79.89 OTHER SPECIFIED SOFT TISSUE DISORDERS 07/15/2018 TOVA EDWARDS DIRECTOR MEDICAL SAFETY Ot M17.11 UNILATERAL PRIMARY OSTEOARTHRITIS, RIGHT 07/15/2018 TOVA EDWARDS DIRECTOR MEDICAL SAFETY Ot S89.91XA UNSPECIFIED INJURY OF RIGHT LOWER LEG, I 07/15/2018 TOVA EDWARDS DIRECTOR MEDICAL SAFETY Ot W19.XXXA UNSPECIFIED FALL, INITIAL ENCOUNTER 07/21/2018 FABIANA FAY MD Ot M79.89 OTHER SPECIFIED SOFT TISSUE DISORDERS 03/09/2019 GAGE SMALL MD Ot Z12.3 1 ENCNTR SCREEN MAMMOGRAM FOR MALIGNANT NE 03/09/2019 TOVA EDWARDS DIRECTOR MEDICAL SAFETY Ot M17.11 UNILATERAL PRIMARY OSTEOARTHRITIS, RIGHT 03/09/2019 TOVA EDWARDS DIRECTOR MEDICAL SAFETY Ot S89.91XA UNSPECIFIED INJURY OF RIGHT LOWER LEG, I 03/09/2019 TOVA EDWARDS DIRECTOR MEDICAL SAFETY Ot W19.XXXA UNSPECIFIED FALL, INITIAL ENCOUNTER 03/09/2019 NYA NEGRON, FABIANA Robbins Ot M79.89 OTHER SPECIFIED SOFT TISSUE DISORDERS 03/09/2019 STACI NEGRON, GAGE Burkett Ot Z12.3 1 ENCNTR SCREEN MAMMOGRAM FOR MALIGNANT NE 03/09/2019 GAGE MSALL MD Ot Z12.3 1 ENCNTR SCREEN MAMMOGRAM FOR MALIGNANT NE 03/11/2019 GAGE SMALL MD Ot Z12.3 1 ENCNTR SCREEN MAMMOGRAM FOR MALIGNANT NE 03/15/2019 GAGE SMALL MD Ot Z12.3 1 ENCNTR SCREEN MAMMOGRAM FOR MALIGNANT NE 03/31/2019 GAGE SMALL MD Ot Z12.3 1 ENCNTR SCREEN MAMMOGRAM FOR MALIGNANT NE 05/17/2019 JOSE NEGRON FACC, MAKI FACP CCDS Ot R55 SYNCOPE AND COLLAPSE 05/18/2019 JOSE NEGRON FACC, AMKI FACP CCDS Ot G47.33 OBSTRUCTIVE SLEEP APNEA (ADULT) (PEDIATR 05/18/2019 JOSE NEGRON FACC, MAKI FACP CCDS Ot I10 ESSENTIAL (PRIMARY) HYPERTENSION 05/18/2019 JOSE NEGRON FACC, ALI FACP CCDS Ot I35.0 NONRHEUMATIC AORTIC (VALVE) STENOSIS 05/18/2019 JOSE NEGRON FACC, ALI FACP CCDS Ot I45.2 BIFASCICULAR BLOCK 05/18/2019 JOSE NEGRON FACC, MAKI FACP CCDS Ot I48.0 PAROXYSMAL ATRIAL FIBRILLATION 05/18/2019 JOSE NEGRON FACC, MAKI FACP CCDS Ot I49.5 SICK SINUS SYNDROME 05/18/2019 MAKI GARCIA MD, FACC FACP CCDS Ot I77.1 STRICTURE OF ARTERY 05/18/2019 JOSE NEGRON FACC, ALI FACP CCDS Ot 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 05/18/2019 MAKI GARCIA MD, FACC FACP CCDS Ot N39.0 URINARY TRACT INFECTION, SITE NOT SPECIF 05/18/2019 MAKI GARCIA MD, FACC FACP CCDS Ot Z73.9 PROBLEM RELATED TO LIFE MANAGEMENT DIFFI 05/18/2019 MAKI GARCIA MD, FACC FACP CCDS Ot Z79.01 RETIREMENT (CURRENT) USE OF ANTICOAGULANT 05/18/2019 MAKI GARCIA MD, FACC FACP CCDS Ot Z85.828 PERSONAL HISTORY OF OTHER MALIGNANT NEOP 05/18/2019 MAKI GARCIA MD, FACC FACP CCDS Ot Z86.79 PERSONAL HISTORY OF OTHER DISEASES OF TH 05/18/2019 MAKI GARCIA MD, FACC FACP CCDS Ot Z88.5 ALLERGY STATUS TO NARCOTIC AGENT STATUS 05/18/2019 MAKI GARCIA MD, FACC FACP CCDS Ot Z88.7 ALLERGY STATUS TO SERUM AND VACCINE STAT 05/18/2019 MAKI GARCIA MD, FACC FACP CCDS Ot Z88.8 ALLERGY STATUS TO OTH DRUG/MEDS/BIOL SUB 05/19/2019 MAKI GARCIA MD, FACC FACP CCDS Ot R55 SYNCOPE AND COLLAPSE 05/24/2019 JOSE NEGRON FACC, MAKI FACP CCDS Ot G47.33 OBSTRUCTIVE SLEEP APNEA (ADULT) (PEDIATR 05/24/2019 MAKI GARCIA MD, FACC FACP CCDS Ot I10 ESSENTIAL (PRIMARY) HYPERTENSION 05/24/2019 MAKI GARCIA MD, FACC FACP CCDS Ot I35.0 NONRHEUMATIC AORTIC (VALVE) STENOSIS 05/24/2019 MAKI GARCIA MD, FACC FACP CCDS Ot I45.2 BIFASCICULAR BLOCK 05/24/2019 MAKI GARCIA MD, FACC FACP CCDS Ot I48.0 PAROXYSMAL ATRIAL FIBRILLATION 05/24/2019 MAKI GARCIA MD, FACC FACP CCDS Ot I49.5 SICK SINUS SYNDROME 05/24/2019 MAKI GARCIA MD, FACC FACP CCDS Ot I77.1 STRICTURE OF ARTERY 05/24/2019 MAKI GARCIA MD, FACC FACP CCDS Ot 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 05/24/2019 MAKI GARCIA MD, FACC FACP CCDS Ot N39.0 URINARY TRACT INFECTION, SITE NOT SPECIF 05/24/2019 MAKI GARCIA MD, FACC FACP CCDS Ot Z73.9 PROBLEM RELATED TO LIFE MANAGEMENT DIFFI 05/24/2019 MAKI GARCIA MD, FACC FACP CCDS Ot Z79.01 MOLDER MEAT (CURRENT) USE OF ANTICOAGULANT 05/24/2019 MAKI GARCIA MD, FACC FACP CCDS Ot Z85.828 PERSONAL HISTORY OF OTHER MALIGNANT NEOP 05/24/2019 MAKI GARCIA MD, FACC FACP CCDS Ot Z86.79 PERSONAL HISTORY OF OTHER DISEASES OF 05/24/2019 MAKI GARCIA MD, FACC FACP CCDS Ot Z88.5 ALLERGY STATUS TO NARCOTIC AGENT STATUS 05/24/2019 JOSE NEGRON FACC, MAKI FACP CCDS Ot Z88.7 ALLERGY STATUS TO SERUM AND VACCINE STAT 05/24/2019 JOSE NEGRON FACC, MAKI FACP CCDS Ot Z88.8 ALLERGY STATUS TO OTH DRUG/MEDS/BIOL SUB 05/24/2019 JOSE NEGRON FACC, MAKI FACP CCDS Ot G47.33 OBSTRUCTIVE SLEEP APNEA (ADULT) (PEDIATR 05/24/2019 JOSE NEGRON FACC, MAKI FACP CCDS Ot I10 ESSENTIAL (PRIMARY) HYPERTENSION 05/24/2019 JOSE NEGRON FACC, MAKI FACP CCDS Ot I35.0 NONRHEUMATIC AORTIC (VALVE) STENOSIS 05/24/2019 JOSE NEGRON FACC, MAKI FACP CCDS Ot I45.2 BIFASCICULAR BLOCK 05/24/2019 JOSE NEGRON FACC, MAKI FACP CCDS Ot I48.0 PAROXYSMAL ATRIAL FIBRILLATION 05/24/2019 JOSE NEGRON FACC, MAKI FACP CCDS Ot I49.5 SICK SINUS SYNDROME 05/24/2019 JOSE NEGRON FACC, MAKI FACP CCDS Ot I77.1 STRICTURE OF ARTERY 05/24/2019 MAKI GARCIA MD, FACC FACP CCDS Ot 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 05/24/2019 JOSE NEGRON FACC, MAKI FACP CCDS Ot N39.0 URINARY TRACT INFECTION, SITE NOT SPECIF 05/24/2019 JOSE NEGRON FACC, MAKI FACP CCDS Ot Z73.9 PROBLEM RELATED TO LIFE MANAGEMENT DIFFI 05/24/2019 MAKI GARCIA MD, FACC FACP CCDS Ot Z79.01 MOLDER MEAT (CURRENT) USE OF ANTICOAGULANT 05/24/2019 JOSE NEGRON FACC, ALI FACP CCDS Ot Z85.828 PERSONAL HISTORY OF OTHER MALIGNANT NEOP 05/24/2019 JOSE NEGRON FACC, ALI FACP CCDS Ot Z86.79 PERSONAL HISTORY OF OTHER DISEASES OF TH 05/24/2019 MAKI GARCIA MD, FACC FACP CCDS Ot Z88.5 ALLERGY STATUS TO NARCOTIC AGENT STATUS 05/24/2019 MAKI GARCIA MD, FACC FACP CCDS Ot Z88.7 ALLERGY STATUS TO SERUM AND VACCINE STAT 05/24/2019 MAKI GARCIA MD, FACC FACP CCDS Ot Z88.8 ALLERGY STATUS TO OTH DRUG/MEDS/BIOL SUB 05/31/2019 JOSE NEGRON FACC, MAKI FACP CCDS Ot G47.33 OBSTRUCTIVE SLEEP APNEA (ADULT) (PEDIATR 05/31/2019 JOSE NEGRON FACC, MAKI FACP CCDS Ot G90.521 COMPLEX REGIONAL PAIN SYNDROME I OF [facility] 05/31/2019 JOSE NEGRON FACC, MAKI FACP CCDS Ot H40.9 UNSPECIFIED GLAUCOMA 05/31/2019 JOSE NEGRON FACC, MAKI FACP CCDS Ot I10 ESSENTIAL (PRIMARY) HYPERTENSION 05/31/2019 JOSE NEGRON FACC, MAKI FACP CCDS Ot I48.0 PAROXYSMAL ATRIAL FIBRILLATION 05/31/2019 JOSE NEGRON FACC, MAKI FACP CCDS Ot I49.5 SICK SINUS SYNDROME 05/31/2019 JOSE NEGRON FACC, MAKI FACP CCDS Ot I71.4 ABDOMINAL AORTIC ANEURYSM, WITHOUT RUPTU 05/31/2019 JOSE NEGRON FACC, MAKI FACP CCDS Ot I73.9 PERIPHERAL VASCULAR DISEASE, UNSPECIFIED 05/31/2019 JOSE NEGRON FACC, MAKI FACP CCDS Ot I77.89 OTHER SPECIFIED DISORDERS OF ARTERIES AN 05/31/2019 JOSE NEGRON FACC, MAKI FACP CCDS Ot N39.0 URINARY TRACT INFECTION, SITE NOT SPECIF 05/31/2019 JOSE NEGRON FACC, MAKI FACP CCDS Ot R55 SYNCOPE AND COLLAPSE 05/31/2019 JOSE NEGRON FACC, MAKI FACP CCDS Ot Z79.01 MOLDER MEAT (CURRENT) USE OF ANTICOAGULANT 05/31/2019 JOSE NEGRON FACC, ALI FACP CCDS Ot Z79.899 OTHER MOLDER MEAT (CURRENT) DRUG THERAPY 05/31/2019 JOSE NEGRON FACC, MAKI FACP CCDS Ot Z85.828 PERSONAL HISTORY OF OTHER MALIGNANT NEOP 05/31/2019 JOSE NEGRON FACC, MAKI FACP CCDS Ot Z88.5 ALLERGY STATUS TO NARCOTIC AGENT STATUS 05/31/2019 JOSE NEGRON FACC, MAKI FACP CCDS Ot Z88.7 ALLERGY STATUS TO SERUM AND VACCINE STAT 06/03/2019 JOSE NEGRON FACC, MAKI FACP CCDS Ot G47.33 OBSTRUCTIVE SLEEP APNEA (ADULT) (PEDIATR 06/03/2019 JOSE NEGRON FACC, MAKI FACP CCDS Ot G90.521 COMPLEX REGIONAL PAIN SYNDROME I OF [facility] 06/03/2019 JOSE NEGRON FACC, MAKI FACP CCDS Ot H40.9 UNSPECIFIED GLAUCOMA 06/03/2019 JOSE NEGRON FACC, ALI FACP CCDS Ot I10 ESSENTIAL (PRIMARY) HYPERTENSION 06/03/2019 JOSE NEGRON FACC, ALI FACP CCDS Ot I48.0 PAROXYSMAL ATRIAL FIBRILLATION 06/03/2019 JOSE NEGRON FACC, ALI FACP CCDS Ot I49.5 SICK SINUS SYNDROME 06/03/2019 JOSE NEGRON FACC, ALI FACP CCDS Ot I71.4 ABDOMINAL AORTIC ANEURYSM, WITHOUT RUPTU 06/03/2019 JOSE NEGRON FACC, ALI FACP CCDS Ot I73.9 PERIPHERAL VASCULAR DISEASE, UNSPECIFIED 06/03/2019 JOSE NEGRON FACC, ALI FACP CCDS Ot I77.89 OTHER SPECIFIED DISORDERS OF ARTERIES AN 06/03/2019 JOSE NEGRON FACC, ALI FACP CCDS Ot N39.0 URINARY TRACT INFECTION, SITE NOT SPECIF 06/03/2019 JOSE NEGRON FACC ALI FACP CCDS Ot R55 SYNCOPE AND COLLAPSE 06/03/2019 JOSE NEGRON FACC, MAKI FACP CCDS Ot Z79.01 RETIREMENT (CURRENT) USE OF ANTICOAGULANT 06/03/2019 JOSE NEGRON FACC, MAKI FACP CCDS Ot Z79.899 OTHER MOLDER MEAT (CURRENT) DRUG THERAPY 06/03/2019 JOSE NEGRON FACC, ALI FACP CCDS Ot Z85.828 PERSONAL HISTORY OF OTHER MALIGNANT NEOP 06/03/2019 JOSE NEGRON FACC, MAKI FACP CCDS Ot Z88.5 ALLERGY STATUS TO NARCOTIC AGENT STATUS 06/03/2019 JOSE NEGRON FACC, ALI FACP CCDS Ot Z88.7 ALLERGY STATUS TO SERUM AND VACCINE STAT 06/07/2019 JOSE NEGRON FACC, ALI FACP CCDS Ot R55 SYNCOPE AND COLLAPSE 11/14/2019 GAGE SMALL MD Ot Z12.3 1 ENCNTR SCREEN MAMMOGRAM FOR MALIGNANT NE 11/14/2019 TOVA EDWARDS APRN Ot M17.11 UNILATERAL PRIMARY OSTEOARTHRITIS, RIGHT 11/14/2019 TOVA EDWARDS DIRECTOR MEDICAL SAFETY Ot S89.91XA UNSPECIFIED INJURY OF RIGHT LOWER LEG, I 11/14/2019 TOVA EDWARDS DIRECTOR MEDICAL SAFETY Ot W19.XXXA UNSPECIFIED FALL, INITIAL ENCOUNTER 11/14/2019 NYA NEGRON, FABIANA Robbins Ot M79.89 OTHER SPECIFIED SOFT TISSUE DISORDERS 11/14/2019 STACI NEGRON, GAGE Burkett Ot Z12.3 1 ENCNTR SCREEN MAMMOGRAM FOR MALIGNANT NE 11/14/2019 JOSE NEGRON FACC, MAKI FORD CCDS Ot R55 SYNCOPE AND COLLAPSE Procedures There is no data. Results Test Result Range [id number] - 04/21/16 09:29 Serum or plasma urea nitrogen measurement (mass/volume ) 27 mg/dL 7-18 Serum or plasma creatinine measurement (mass/volume) 0.99 mg/dL 0.60-1.30 Serum or plasma urea nitrogen/creatinine mass ratio 27 NRG Serum or plasma creatinine measurement w ith calculation of estimated glomerular filtration rate 54 NRG Complete blood count (CBC) with automate d white blood cell (WBC) differential - 03/20/18 08:49 Blood leukocytes automated count (number/volume) 5.9 10*3/uL 4.3-11.0 Blood erythrocytes automated count (number/volume) 4.35 10*6/uL 4.35-5.85 Venous blood hemoglobin measurement (mass/volume) 12.7 g/dL 11.5-16.0 Blood hematocrit (volume fraction) 38 % 35-52 Automated erythrocyte mean corpuscular volume 88 [ foz_us] 80-99 Automated erythrocyte mean corpuscular h emoglobin (mass per erythrocyte) 29 pg 25-34 Automated erythrocyte mean corpuscular h emoglobin concentration measurement (mass/volume) 33 g/dL 32-36 Automated erythrocyte distribution width ratio 13. 7 % 10.0- 14.5 Automated blood platelet count (count/volume) 164 10*3/uL 130-400 Automated blood platelet mean volume measurement 11.6 [foz_us] 7.4-10.4 Automated blood neutrophils/100 leukocytes 74 % 42-75 Automated blood lymphocytes/100 leukocytes 16 % 12-44 Blood monocytes/100 leukocytes 7 % 0-12 Automated blood eosinophils/100 leukocytes 3 % 0-10 Automated blood basophils/100 leukocytes 0 % 0-10 Blood neutrophils automated count (number/volume) 4.4 10*3 1.8-7.8 Blood lymphocytes automated count (number/volume) 0.9 10*3 1.0-4.0 Blood monocytes automated count (number/volume) 0. 4 10*3 0.0-1.0 Automated eosinophil count 0.2 10*3/uL 0 .0-0.3 Automated blood basophil count (count/volume) 0.0 10*3/uL 0.0-0.1 Comprehensive metabolic panel - 03/20/18 08:49 Serum or plasma sodium measurement (moles/volume) 142 mmol/L 135-145 Serum or plasma potassium measurement (moles/volume) 4.0 mmol/L 3.6-5.0 Serum or plasma chloride measurement (moles/volume) 111 mmol/L 98-107 Carbon dioxide 22 mmol/L 21-32 Serum or plasma anion gap determination (moles/volume) 9 mmol/L 5-14 Serum or plasma urea nitrogen measurement (mass/volume ) 27 mg/dL 7-18 Serum or plasma creatinine measurement (mass/volume) 0.80 mg/dL 0.60-1.30 Serum or plasma urea nitrogen/creatinine mass ratio 34 NRG Serum or plasma creatinine measurement w ith calculation of estimated glomerular filtration rate > NRG Serum or plasma glucose measurement (mass/volume) 109 mg/dL 70-105 Serum or plasma calcium measurement (mass/volume) 9.2 mg/dL 8.5-10.1 Serum or plasma total bilirubin measurement (mass/volu me) 0.8 mg/dL 0.1-1.0 Serum or plasma alkaline phosphatase dali surement (enzymatic activity/volume) 82 U/L 40-136 Serum or plasma aspartate aminotransfera se measurement (enzymatic activity/volume) 17 U/L 5-34 Serum or plasma alanine aminotransferase measurement (enzymatic activity/volume) 14 U/L 0-55 Serum or plasma protein measurement (mass/volume) 6.9 g/dL 6.4-8.2 Serum or plasma albumin measurement (mass/volume) 3.9 g/dL 3.2-4.5 CALCIUM CORRECTED 9.3 mg/dL 8.5-10.1 Complete urinalysis with reflex to cultu re - 03/20/18 09:52 Urine color determination YELLOW NRG Urine clarity determination CLEAR NR G Urine pH measurement by test strip 5 5-9 Specific gravity of urine by test strip 1.015 1.016-1.022 Urine protein assay by test strip, semi-quantitative NEGATIVE NEGATIVE Urine glucose detection by automated test strip NE GATIVE NEGATIVE Erythrocytes detection in urine sediment by light micr oscopy 4+ NEGATIVE Urine ketones detection by automated test strip NE GATIVE NEGATIVE Urine nitrite detection by test strip NEGATIVE NEGATIVE Urine total bilirubin detection by test strip NEGA TIVE NEGATIVE Urine urobilinogen measurement by automated test strip (mass/volume) NORMAL NORMAL Urine leukocyte esterase detection by dipstick NEG ATIVE NEGATIVE Automated urine sediment erythrocyte cou nt by microscopy (number/high power field) [HPF] NRG Automated urine sediment leukocyte count by microscopy (number/high power field) NONE NRG Bacteria detection in urine sediment by light microsco py NEGATIVE NRG Squamous epithelial cells detection in u rine sediment by light microscopy RARE NRG Crystals detection in urine sediment by light microsco py NONE NRG Casts detection in urine sediment by light microscopy NONE NRG Mucus detection in urine sediment by light microscopy NEGATIVE NRG Complete urinalysis with reflex to culture NO NRG PT panel in platelet poor plasma by coag ulation assay - 03/21/18 06:35 Prothrombin time (PT) in platelet poor plasma by coagu lation assay 30.5 s 12.2-14.7 INR in platelet poor plasma or blood by coagulation as say 2.9 0.8-1.4 Automated blood complete blood count (he mogram) panel - 05/17/19 07:36 Blood leukocytes automated count (number/volume) 6.1 10*3/uL 4.3-11.0 Blood erythrocytes automated count (number/volume) 4.66 10*6/uL 4.35-5.85 Venous blood hemoglobin measurement (mass/volume) 13.1 g/dL 11.5-16.0 Blood hematocrit (volume fraction) 41 % 35-52 Automated erythrocyte mean corpuscular volume 88 [ foz_us] 80-99 Automated erythrocyte mean corpuscular h emoglobin (mass per erythrocyte) 28 pg 25-34 Automated erythrocyte mean corpuscular h emoglobin concentration measurement (mass/volume) 32 g/dL 32-36 Automated erythrocyte distribution width ratio 14. 3 % 10.0- 14.5 Automated blood platelet count (count/volume) 186 10*3/uL 130-400 Automated blood platelet mean volume measurement 11.8 [foz_us] 7.4-10.4 PT panel in platelet poor plasma by coag ulation assay - 05/17/19 07:36 Prothrombin time (PT) in platelet poor plasma by coagu lation assay 16.5 s 12.2-14.7 INR in platelet poor plasma or blood by coagulation as say 1.3 0.8-1.4 Activated partial thromboplastin time (a PTT) in platelet poor plasma bycoagulation assay - 05/17/19 07:36 Activated partial thromboplastin time (a PTT) in platelet poor plasma bycoagulation assay 36 s 24-35 Comprehensive metabolic panel - 05/17/19 07:36 Serum or plasma sodium measurement (moles/volume) 140 mmol/L 135-145 Serum or plasma potassium measurement (moles/volume) 4.8 mmol/L 3.6-5.0 Serum or plasma chloride measurement (moles/volume) 110 mmol/L 98-107 Carbon dioxide 20 mmol/L 21-32 Serum or plasma anion gap determination (moles/volume) 10 mmol/L 5-14 Serum or plasma urea nitrogen measurement (mass/volume ) 38 mg/dL 7-18 Serum or plasma creatinine measurement (mass/volume) 1.24 mg/dL 0.60-1.30 Serum or plasma urea nitrogen/creatinine mass ratio 31 NRG Serum or plasma creatinine measurement w ith calculation of estimated glomerular filtration rate 41 NRG Serum or plasma glucose measurement (mass/volume) 107 mg/dL 70-105 Serum or plasma calcium measurement (mass/volume) 9.4 mg/dL 8.5-10.1 Serum or plasma total bilirubin measurement (mass/volu me) 1.0 mg/dL 0.1-1.0 Serum or plasma alkaline phosphatase dali surement (enzymatic activity/volume) 91 U/L 40-136 Serum or plasma aspartate aminotransfera se measurement (enzymatic activity/volume) 19 U/L 5-34 Serum or plasma alanine aminotransferase measurement (enzymatic activity/volume) 17 U/L 0-55 Serum or plasma protein measurement (mass/volume) 7.4 g/dL 6.4-8.2 Serum or plasma albumin measurement (mass/volume) 4.3 g/dL 3.2-4.5 CALCIUM CORRECTED 9.2 mg/dL 8.5-10.1 Lipid 1996 panel - 05/17/19 07:36 Serum or plasma triglyceride measurement (mass/volume) 71 mg/dL <150 Serum or plasma cholesterol measurement (mass/volume) 195 mg/dL < 200 Serum or plasma cholesterol in HDL measurement (mass/v olume) 65 mg/dL 40-60 Cholesterol in LDL [mass/volume] in serum or plasma by direct assay 111 mg/dL 1-129 Serum or plasma cholesterol in VLDL measurement (mass/ volume) 14 mg/dL 5-40 Methicillin resistant Staphylococcus aur eus (MRSA) screening culture - 05/17/19 07:36 Methicillin resistant Staphylococcus aureus (MRSA) scr eening culture NEG NRG Complete blood count (CBC) with automate d white blood cell (WBC) differential - 05/18/19 05:10 Blood leukocytes automated count (number/volume) 3.4 10*3/uL 4.3-11.0 Blood erythrocytes automated count (number/volume) 4.01 10*6/uL 4.35-5.85 Venous blood hemoglobin measurement (mass/volume) 11.5 g/dL 11.5-16.0 Blood hematocrit (volume fraction) 36 % 35-52 Automated erythrocyte mean corpuscular volume 90 [ foz_us] 80-99 Automated erythrocyte mean corpuscular h emoglobin (mass per erythrocyte) 29 pg 25-34 Automated erythrocyte mean corpuscular h emoglobin concentration measurement (mass/volume) 32 g/dL 32-36 Automated erythrocyte distribution width ratio 13. 8 % 10.0- 14.5 Automated blood platelet count (count/volume) 115 10*3/uL 130-400 Automated blood platelet mean volume measurement 12.3 [foz_us] 7.4-10.4 Automated blood neutrophils/100 leukocytes 68 % 42-75 Automated blood lymphocytes/100 leukocytes 18 % 12-44 Blood monocytes/100 leukocytes 9 % 0-12 Automated blood eosinophils/100 leukocytes 5 % 0-10 Automated blood basophils/100 leukocytes 1 % 0-10 Blood neutrophils automated count (number/volume) 2.3 10*3 1.8-7.8 Blood lymphocytes automated count (number/volume) 0.6 10*3 1.0-4.0 Blood monocytes automated count (number/volume) 0. 3 10*3 0.0-1.0 Automated eosinophil count 0.2 10*3/uL 0 .0-0.3 Automated blood basophil count (count/volume) 0.0 10*3/uL 0.0-0.1 Whole blood basic metabolic panel - 12/29 05:10 Serum or plasma sodium measurement (moles/volume) 141 mmol/L 135-145 Serum or plasma potassium measurement (moles/volume) 4.7 mmol/L 3.6-5.0 Serum or plasma chloride measurement (moles/volume) 111 mmol/L 98-107 Carbon dioxide 21 mmol/L 21-32 Serum or plasma anion gap determination (moles/volume) 9 mmol/L 5-14 Serum or plasma urea nitrogen measurement (mass/volume ) 27 mg/dL 7-18 Serum or plasma creatinine measurement (mass/volume) 0.85 mg/dL 0.60-1.30 Serum or plasma urea nitrogen/creatinine mass ratio 32 NRG Serum or plasma creatinine measurement w ith calculation of estimated glomerular filtration rate > NRG Serum or plasma glucose measurement (mass/volume) 88 mg/dL 70-105 Serum or plasma calcium measurement (mass/volume) 8.5 mg/dL 8.5-10.1 Magnesium - 05/18/19 05:10 Magnesium 2.0 mg/dL 1.6-2.4 Encounters ACCT No. Visit Date/Time Discharge Status Pt. Type Provider Facility Loc./Unit Complaint [id number] 05/31/2019 11:05:00 12:04:00 DIS Outpatient MAKI GARCIA MD, FACC, FACP CC DS [facility] CATH SYNCOPE [id number] 05/17/2019 07:02:00 13:29:00 DIS Outpatient MAKI GARCIA MD, FACC, FACP CC DS [facility] CATH SYNCOPE,PAR OXYSMAL AFIB,PVC [id number] 05/13/2019 13:06:00 23:59:59 CLS Outpatient MAKI GARCIA MD, FACC, FACP CC DS [facility] CARD SYNCOPE [id number] 03/09/2019 10:21:00 23:59:59 CLS Outpatient GAGE SMALL MD [facility] RAD SCREENING [id number] 06/28/2018 16:30:00 23:59:59 CLS Outpatient FABIANA FAY MD [facility] RAD RLE SWELLING, R LE PAIN [id number] 06/25/2018 11:49:00 23:59:59 CLS Outpatient TOVA EDWARDS APRN [facility] RAD R KNEE PAIN [id number] 03/05/2018 13:32:00 018 11:10:00 DIS Outpatient BECCA BRYANT DPM Q [facility] REHAB SINUS TARSITIS; ARTHRIT IS OF SUBTALAR JOINT; [id number] 03/20/2018 12:20:00 018 15:00:00 DIS Inpatient LIBERTY NEGRON, KENNY Wilson [facility] 4TH VERTIGO/ATAXIA [id number] 03/08/2018 08:20:00 018 23:59:59 CLS Outpatient GAGE SMALL MD [facility] RAD SCREENING [id number] 10/30/2017 11:22:00 018 14:55:00 DIS Outpatient DEIDRA LORD MD [facility] ENDO SCREENING/FAMILY HX OF COLON CA [id number] 10/22/2017 05:35:00 018 10:29:00 DIS Outpatient DEIDRA LORD MD [facility] PREOP COLONOSCOPY [id number] 08/17/2017 13:05:00 018 23:59:59 CLS Outpatient ZAIDA BRYANT DPMIN Q [facility] RAD OSTEOARTHRITIS OF THE S UBTALAR JOINT [id number] 07/17/2017 09:45:00 018 23:59:59 CLS Outpatient DONNA LOZANO [facility] RAD I71.4 ABDOMINAL AORTIC ANEURYSM [id number] 02/26/2017 10:07:00 017 23:59:59 CLS Outpatient GAGE SMALL MD [facility] RAD SCREENING [id number] 08/11/2016 15:01:00 017 23:59:59 CLS Outpatient JOSE NEGRON FACC, MAKI FORD CC DS [facility] CARD A-FIB,SLEEP APNEA,AORTIC VALVE [id number] 07/18/2016 10:26:00 017 23:59:59 CLS Outpatient LATASHA KIM MD [facility] RAD LUMBAR RADICULOPATHY [id number] 04/21/2016 09:17:00 016 23:59:59 CLS Outpatient GAGE SMALL MD [facility] RAD PLEURETIC LT FLANK PAIN [id number] 02/20/2016 08:24:00 016 23:59:59 CLS Outpatient GAGE SMALL MD [facility] RAD ABNORMAL MAMMOGRAM [id number] 01/04/2016 11:34:00 016 08:59:00 DIS Outpatient SHIRA JANE [facility] REHAB NONDISPLACED FX LATERAL MALLEOLUS L FIBULA [id number] 10/22/2015 12:16:00 13:35:00 DIS Emergency STAR TREJO APRN [facility] ER FALL/RIGHT ANKLE INJURY [id number] 03/22/2015 09:44:00 015 23:59:59 CLS Outpatient MAKI GARCIA MD, FACC, FACP CC DS [facility] RAD PAD [id number] 03/07/2015 12:03:00 015 23:59:59 CLS Outpatient GAGE SMALL MD [facility] RAD SCREENING [id number] 12/07/2014 10:47:00 015 23:59:59 CLS Outpatient MAKI GARCIA MD, FACCP CC DS [facility] RAD STENOSIS JARQUIN BCLAVIAN ARTERY [id number] 12/06/2014 08:18:00 015 23:59:59 CLS Outpatient MAKI GARCIA MD, FACC, FACP CC DS [facility] RAD SUBCLAVIAN STENOSIS [id number] 07/21/2014 13:11:00 015 23:59:59 CLS Outpatient LATASHA SMITH MD [facility] RAD REOCCURING FALLS, COUMA DIN THERAPY [id number] 05/27/2014 12:49:00 014 16:17:00 DIS Emergency LANDEN EUBANKS [facility] ER BLOOD IN URINE [id number] 03/06/2014 09:31:00 23:59:59 CLS Outpatient GAGE SMALL MD [facility] RAD 6 MONTH FOLLOW UP [id number] 11/15/2013 16:25:00 23:59:59 CLS Outpatient CORTNEY HERNANDEZ MD [facility] LABNPT ABSCESS (L) OF BACK [id number] 08/01/2013 10:47:00 23:59:59 CLS Outpatient GAGE SMALL MD [facility] RAD FOLLOW UP [id number] 02/09/2013 06:34:00 23:59:59 CLS Outpatient CORTNEY HERNANDEZ MD [facility] SDC SKIN LESION RIGHT EYEB ROW [id number] 02/07/2013 10:33:00 23:59:59 CLS Outpatient CORTNEY HERNANDEZ MD [facility] PREOP LESION RT EYEBROW [id number] 01/25/2013 10:50:00 23:59:59 CLS Outpatient GAGE SMALL MD [facility] RAD ABN MAMMO [id number] 01/14/2013 10:06:00 23:59:59 CLS Outpatient GAGE SMALL MD [facility] RAD SCREENING [id number] 11/15/2019 08:00:00 P ELIJAH GARCIA MD FACC, MAKI FORD CCDS [facility] CATH PAROXYSMAL AFIB,SINUS NODE DYSFUNCTION,SLEEP APNEA [id number] 04/21/2016 09:16:00 Document Registration [id number] 2015 12:59:00 Document Registration [id number] 10/06/2012 09:10:00 Document Registration [id number] 09/30/2012 08:06:00 Document Registration [id number] 05/13/2012 20:04:00 Document Registration [id number] 04/16/2012 21:31:00 Document Registration [id number] 02/19/2012 00:00:00 Document Registration [id number] 01/05/2012 14:13:00 Document Registration [id number] 12/03/2011 13:57:00 Document Registration [id number] 11/20/2011 09:10:00 Document Registration [id number] 10/06/2011 12:48:00 Document Registration [id number] 09/29/2011 09:10:00 Document Registration [id number] 09/08/2011 12:55:00 Document Registration
[2019-11-15] MEDS ORDERED: BACITRACIN INJECTION 50,000 UNIT, SODIUM CHLORIDE 0.9% IRRIGATIO 500 ML IR ONE ×2 (07:15)
[2019-11-15 07:42] LABS: HEMOGLOBIN 12.4 G/DL (11.5-16.0); MEAN PLATELET VOLUME 11.9 FL (7.4-10.4); RED CELL DISTRIBUTION WIDTH 14.6 % (10.0-14.5); WHITE BLOOD COUNT 4.4 10^3/uL (4.3-11.0)
[2019-11-15] MEDS ORDERED: SULF1TAB35 PO (07:50)
[2019-11-15 07:51] LABS: INR 1.3 (0.8-1.4); PROTHROMBIN TIME PATIENT 16.4 SEC (12.2-14.7)
[2019-11-15 07:52] LABS: ALBUMIN 3.9 GM/DL (3.2-4.5); POTASSIUM 3.9 MMOL/L (3.6-5.0)
[2019-11-15 07:53] LABS: CALCIUM 8.7 MG/DL (8.5-10.1)
[2019-11-15 07:54] LABS: TOTAL PROTEIN 6.8 GM/DL (6.4-8.2)
[2019-11-15 07:56] LABS: BILIRUBIN,TOTAL 1.2 MG/DL (0.1-1.0)
[2019-11-15 07:58] LABS: CREATININE SERUM 1.05 MG/DL (0.60-1.30)
[2019-11-15] MEDS ORDERED: NS (IVPB) 50 ML ONE (08:12)
[2019-11-15] MEDS ORDERED: MIDAZOLAM 5 MG/5 ML (VERSED) VIAL ONE (08:43)
[2019-11-15] MEDS ORDERED: fentaNYL INJECTION 100 MCG/2 ML AMP ONE ×2 (08:43→09:48)
--- NOTE | 2019-11-15 09:10 | Cardiac Procedure Note-CS/ASA ---
Pre-Procedure Note Pre-Op Procedure Note H&P Reviewed The H&P was reviewed, patient examined and no changes noted. Date H&P Reviewed: November 15, 2019 Time H&P Reviewed: 09:10 Conscious Sedation Pre-Proced Time 09:10 ASA Score 3 For ASA 3 and 4: Consider anesthesia and medical clearance. Also, for patients with a history of failed moderate sedation consider anesthesia. Airway Lungs Heart ASA score ASA 1: a normal healthy patient ASA 2: a patient with a mild systemic disease (mid diabetes, controlled hypertension, obesity ASA 3: a patient with a severe systemic disease that limits activity (angina, COPD, prior Myocardial infarction) ASA 4: a patient with an incapacitating disease that is a constant threat to life (CHF, renal failure) ASA 5: a moribund patient not expected to survive 24 hrs. (ruptured aneurysm) ASA 6: a declared brain- patient whose organs are being harvested. For emergent operations, add the letter E after the classification Mallampati Classification Grade 2 Sedation Plan Analgesia, Amnesia, Plan communicated to team members, Discussed options with patient/fam, Discussed risks with patient/fam The patient is an appropriate candidate to undergo the planned procedure, sedation, and anesthesia. The patient immediately re-assessed prior to indication. MAKI GARCIA MD FACP FAC CCDS November 15, 2019 09:10
[2019-11-15] MEDS ORDERED: NS IV 1000 ML 1,000 ML IV SCH (11:38)
[2019-11-15] MEDS ORDERED: PATIENT MAY USE OWN MEDS, ALL PO SCH (11:45)
[2019-11-15] MEDS ORDERED: ACETAMINOPHEN 325 MG TABLET PO PRN (11:45)
[2019-11-15] MEDS: ceFAZolin INJECTION 1,000 MG in WATER (STERILE) FOR INJECTION 10 ML IV SCH ×2 (13:34→21:29)
[2019-11-15] MEDS ORDERED: LATA2.5D5 OD (13:35)
--- NOTE | 2019-11-15 13:36 | NUR ---
SPOKE WITH THE PT (SHE HAD HER MED WITH HER IN A SUITCASE) TO COMPLETE THE MED REC LATANOPROST: WAS LAST FILLED 05-10-2019 FOR 3 BOXES- THE DIRECTIONS ARE 1 DROP IN OU HS- HOWEVER THE PT WAS TOLD TO JUST USE 1 DROP IN THE RIGHT EYE SO THIS FILL HAS LASTED HER TWICE LONG. THE FOLLOWING ARE FILL DATES FROM [facility] ORDER: 05-10-2019 LATANOPROST #3 09-06-2019 COUMADIN 5MG #100 09-12-2019 LISINOPRIL 5MG #180/90DS 10-25-2019 BACTRIM 400/80MG #15/30DS (THIS WAS FILLED AT [facility]) PT SAYS SHE DOES NOT TAKE ANY OTC MEDICATIONS
[2019-11-15] MEDS ORDERED: SULF1TAB34 PO (13:45)
--- NOTE | 2019-11-15 14:24 | Diagnostic Imaging Report ---
INDICATION: Post cardiac device placement. TECHNIQUE: Two view chest at 12:57 PM. CORRELATION STUDY: 06/28/2008. FINDINGS: A left-sided dual-chamber pacemaker has been placed. An additional electronic loop recorder device over the anterior chest is also present. The heart size and mediastinum are generally stable given difference in projection. Mild vascular congestion. Chronic appearing changes about the lung parenchyma. There may be a small left pleural effusion. No appreciable pneumothorax. Cerclage wires over left lateral rib deformities. IMPRESSION: 1. Left-sided pacemaker has been placed. No evidence for post pacemaker placement complication. Small left pleural effusion. 2. Mild vascular congestion. Dictated by: Dictated on workstation # [id number]
[2019-11-15] MEDS ORDERED: PATIENT MAY USE OWN MEDS, ALL MC SCH (16:15)
[2019-11-15] MEDS: lisINopril 5 MG (PRINIVIL) TABLET PO SCH (20:21)
--- NOTE | 2019-11-15 20:51 | OPERATIVE REPORT ---
DATE OF SERVICE: 11/15/2019 PREOPERATIVE DIAGNOSIS: Sinus node dysfunction with tachycardia-bradycardia syndrome and symptomatic bradycardia. POSTOPERATIVE DIAGNOSIS: Sinus node dysfunction with tachycardia-bradycardia syndrome and symptomatic bradycardia. PROCEDURE: Dual chamber pacemaker implantation. ESTIMATED BLOOD LOSS: Less than 15 mL. INDICATIONS: The patient is an 84-year-old lady, who suffers from episodes of atrial fibrillation with rapid ventricular response and intermittent pauses of up to 4 seconds, some of which have been symptomatic, (profound dizziness and near syncope). The pauses have persisted despite discontinuation of all rate-controlling agents. Accordingly, dual chamber pacemaker implantation was advised. Informed consent was obtained. DESCRIPTION OF PROCEDURE: She was brought to the cardiac catheterization laboratory in a fasting state. The left prepectoral area was prepared and draped in the usual sterile fashion. We initially tried to use ultrasound guidance to locate the vein, but were not able to visualize it well. We used the modified Seldinger technique to advance two guidewires into the left subclavian vein and the tips of the wires were placed in the right atrium. We used sharp and blunt dissection to make a pacemaker pocket. The pocket was packed with gauze soaked in antibiotic solution. The guidewires were used to advance sheaths and the sheaths were used to advance leads. The guidewires were removed after advancing the sheaths. The sheaths were removed after advancement of the guidewire. All lead manipulation was carried out under fluoroscopy. Both leads are active fixation leads. One lead was initially placed at the right ventricular apex, but we were not able to find a good threshold at the apex despite trying multiple spots. Therefore, we placed the ventricular lead at the right ventricular outflow tract septum. The lead was actively fixed. Good sensing and capture thresholds were obtained. The right atrial lead is an active fixation lead and was placed at the right atrial appendage. Good capture and sensing thresholds were obtained. The right atrial lead is Toro model 2088TC-52 with serial #[id number]. The right ventricular lead is Toro model 2088TC-58 with serial #[id number]. The leads were affixed to the prepectoral fascia using sleeves and 0 Ethibond. The leads to the pacemaker pocket was inspected and the antibiotic gauze was removed. The pocket was thoroughly irrigated with antibiotic solution. Good hemostasis was assured. The leads were attached to a dual chamber pacemaker and the pacemaker is Toro model [id number] with serial #[id number]. The leads and the pacemaker were placed in the pacemaker pocket and the pocket was closed in 2 layers using 3.0 Vicryl. The patient tolerated the procedure well. Right atrial sensing is 3.5 millivolts and the pacing impedance is 530 ohms and the capture threshold is 0.9 volts at 0.4 msec. The right ventricular sensing is at 6.3 millivolts. Pacing impedance is 611 ohms. Ventricular capture threshold is 0.5 volts at 0.4 msec. Job ID: [id number] DocumentID: [id number] Dictated Date: 11/15/2019 11:32:56 Precipitator Operator Date: 11/15/2019 16:05:11 Dictated By: MAKI GARCIA MD, MA, FACP, FACC, MTDD
[2019-11-15] MEDS ORDERED: LATANOPROST 0.005% (XALATAN) OPHTH SOLN 2.5 ML OD SCH (21:00)
[2019-11-15] MEDS ORDERED: NON-FORMULARY MEDICATION 1 EA EA (Bimatoprost (Lumigan) 1 DROP) OD SCH (21:00)
[2019-11-15] MEDS ORDERED: TRIM/SULFAMETH 160/800 (SEPTRA DS) TAB PO SCH (21:00)
[2019-11-15] MEDS ORDERED: TRIMETHOPRIM PO SCH (21:00)
[2019-11-15] MEDS ORDERED: SULFAMETHOXAZOLE PO SCH (21:00)
--- NOTE | 2019-11-15 21:20 | NUR ---
THIS RN NOTIFIED DR. GARCIA OF PT'S COMPLAINT OF STERNAL PAIN THAT OCCURS WITH DEEP INSPIRATION. NEW ORDERS OBTAINED, SEE ORDER HX.
[2019-11-15] MEDS ORDERED: IBUPROFEN TABLET 200 MG TAB PO ONE (21:30)
[2019-11-15] MEDS ORDERED: KETOROLAC 15 MG/ML VIAL IVP PRN (21:30)
[2019-11-16] VITALS: BP 119/52
[2019-11-16 03:42] LABS: HEMOGLOBIN 10.6 G/DL (11.5-16.0); RED CELL DISTRIBUTION WIDTH 14.9 % (10.0-14.5); WHITE BLOOD COUNT 4.7 10^3/uL (4.3-11.0)
[2019-11-16 03:51] LABS: ALBUMIN 3.3 GM/DL (3.2-4.5); BILIRUBIN,TOTAL 1.1 MG/DL (0.1-1.0); CREATININE SERUM 0.95 MG/DL (0.60-1.30); TOTAL PROTEIN 5.7 GM/DL (6.4-8.2)
[2019-11-16 04:00] VITALS: BP 127/56
[2019-11-16] MEDS: ceFAZolin INJECTION 1,000 MG in WATER (STERILE) FOR INJECTION 10 ML IV SCH (05:27)
[2019-11-16] MEDS: lisINopril 5 MG (PRINIVIL) TABLET PO SCH (07:59)
[2019-11-16 08:00] VITALS: BP 122/54
[2019-11-16] MEDS: IBUPROFEN TABLET 200 MG TAB PO SCH ×2 (08:02→13:20)
--- NOTE | 2019-11-16 08:12 | Progress Note - Cardiology ---
Cardiology SOAP Progress Note Objective: I&O/Vital Signs 11/15/19 11/16/19 11/16/19 11/16/19 21:15 00:00 00:30 01:00 Temp 36.6 Pulse 65 64 65 Resp 14 15 B/P (MAP) 118/65 (82) 119/52 (74) Pulse Ox 94 93 O2 Delivery Room Air Room Air 11/16/19 11/16/19 11/16/19 04:00 04:05 04:19 Temp 36.6 Pulse 64 67 Resp 21 13 B/P (MAP) 127/56 (79) Pulse Ox 92 95 O2 Delivery Room Air Nasal Cannula O2 Flow Rate 2.00 11/16/19 00:00 Intake Total 910 ml Output Total 120 ml Balance 790 ml Weight (Pounds): 197 Weight (Ounces): 0.0 Weight (Calculated Kilograms): 89.231082 Results/Procedures: Labs Laboratory Tests 11/16/19 03:16: White Blood Count 4.7, Red Blood Count 3.75L, Hemoglobin 10.6L, Hematocrit 34L, Mean Corpuscular Volume 90, Mean Corpuscular Hemoglobin 28, Mean Corpuscular Hemoglobin Concent 31L, Red Cell Distribution Width 14.9H, Platelet Count 128L, Mean Platelet Volume 12.0H, Sodium Level 142, Potassium Level 4.0, Chloride Lev el 113H, Carbon Dioxide Level 20L, Anion Gap 9, Blood Urea Nitrogen 29H, Creatinine 0.95, Estimat Glomerular Filtration Rate 56, BUN/Creatinine Ratio 31, Glucose Level 97, Calcium Level 8.0L, Corrected Calcium 8.6, Total Bilirubin 1.1H, Aspartate Amino Transf (AST/SGOT) 13, Alanine Aminotransferase (ALT/SGPT) 9, Alkaline Phosphatase 66, Total Protein 5.7L, Albumin 3.3 Microbiology 11/15/19 MRSA Screen - Final, Complete MRSA not isolated Laboratory Tests 11/15/19 07:34 11/16/19 03:16 A/P: Assessment: 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 ILR place in May 2019 has indicated pauses of up to 4 sec during sleep hours. Continued with brief, asymptomatic runs of PAF with RVR (lifetime burden of AF = 0.7%). Continued 3-4 second pauses seen on ILR transmission of 10-14-2019 and 11-07-2019 sec on transmission in the absence of rate controlling agents Card cath of 05/17/19: No angiographically significant coronary artery disease. Normal left ventricular end diastolic pressure. Normal left ventricular systolic function with an ejection fraction of 50% to 65% Abnormal ECG. 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 This was well controlled after initiation of therapy with Multaq by Dr. Mohamud of the Electrophysiology Services at [facility], but she now refuses Multaq or amiodarone or other antiarrhythmic meds, including Cardizem Normal global left ventricular systolic function with an ejection fraction of 60 to 65% and high normal left ventricular end-diastolic pressure at the time of cardiac catheterization of June 2008. Normal global left ventricular systolic function with an ejection fraction of approximately 65% per echocardiogram carried out on 12/08/2011. ATILIO of 03/22/15 was 0.95 on R and 0.96 on L Surgical history: History of surgery for basal cell carcinoma. History of s urgery for hiatal hernia, carpal tunnel surgery, rib repair surgery, and back surgery. History of surgery for uterovaginal prolapse and stress urinary incontinence. External and internal hemorrhoids on colonoscopy of September 2012. H/o varicose veins, and left ankle venous ulcer. History of glaucoma. 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 Hypertension, labile. Echo of January 12, 2019 showed LVEF 60 - 65%; mild MR; AoV thickening, consistent with sclerosis; RVSP approx 31 mmHg Obstructive sleep apnea, currently being managed with C-PAP therapy and followed with Dr. Mathew. Carotid ultrasound of May 2019 showed minimal carotid arterial disease without evidence of hemodynamically significant stenosis. Chronic UTI, being managed by Dr Martinez and Dr Wyman Chronic urinary incontinence, treated with hysterectomy and bladder sling, per Dr Haq and Dr Wyman H/o of some blood pressure difference between arms. 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
[2019-11-16] MEDS ORDERED: CEFU500T63 PO (08:50)
[2019-11-16 12:00] VITALS: BP 142/68
--- NOTE | 2019-11-16 12:28 | Progress Note - Cardiology ---
Cardiology SOAP Progress Note Subjective: Has some pleuritic chest discomfort yesterday evening, none today No shortness of breath or palp or syncope No n/v/d Wishes to go home Objective: I&O/Vital Signs 11/16/19 11/16/19 11/16/19 11/16/19 00:30 01:00 04:00 04:05 Temp 36.6 Pulse 65 64 67 Resp 21 13 B/P (MAP) 127/56 (79) Pulse Ox 92 95 O2 Delivery Room Air Nasal Cannula O2 Flow Rate 2.00 11/16/19 11/16/19 11/16/19 11/16/19 04:19 06:49 08:00 08:00 Temp 36.6 Pulse 65 70 B/P (MAP) 122/54 (76) Pulse Ox 98 O2 Delivery Room Air Nasal Cannula O2 Flow Rate 2.00 11/16/19 12:17 Temp 36.2 11/16/19 00:00 Intake Total 910 ml Output Total 120 ml Balance 790 ml Weight (Pounds): 197 Weight (Ounces): 0.0 Weight (Calculated Kilograms): 89.181940 Constitutional: AAO x 3, well-developed, well-nourished Respiratory: No accessory muscle use; other (good bilat air entry) Cardiovascular: regular rate-rhythm, S1 and S2, systolic murmur (soft LEE at card base) Gastrointestional: No tender; soft; No guarding, No rebound; audible bowel sounds Extremities: No clubbing, No cyanosis, No significant edema Neurologic/Psychiatric: oriented x 3, other (moves all limbs equally) Skin: No rash on exposed areas Results/Procedures: Labs Laboratory Tests 11/16/19 03:16: White Blood Count 4.7, Red Blood Count 3.75L, Hemoglobin 10.6L, Hematocrit 34L, Mean Corpuscular Volume 90, Mean Corpuscular Hemoglobin 28, Mean Corpuscular Hemoglobin Concent 31L, Red Cell Distribution Width 14.9H, Platelet Count 128L, Mean Platelet Volume 12.0H, Sodium Level 142, Potassium Level 4.0, Chloride Level 113H, Carbon Dioxide Level 20L, Anion Gap 9, Blood Urea Nitrogen 29H, Creatinine 0.95, Estimat Glomerular Filtration Rate 56, BUN/Creatinine Ratio 31, Glucose Level 97, Calcium Level 8.0L, Corrected Calcium 8.6, Total Bilirubin 1.1H, Aspartate Amino Transf (AST/SGOT) 13, Alanine Aminotransferase (ALT/SGPT) 9, Alkaline Phosphatase 66, Total Protein 5.7L, Albumin 3.3 Microbiology 11/15/19 MRSA Screen - Final, Complete MRSA not isolated Laboratory Tests 11/15/19 07:34 11/16/19 03:16 A/P: Assessment: 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 ILR place in May 2019 has indicated pauses of up to 4 sec during sleep hours. Continued with brief, asymptomatic runs of PAF with RVR (lifetime burden of AF = 0.7%). Continued 3-4 second pauses seen on ILR transmission of 10-14-2019 and 11-07-2019 sec on transmission in the absence of rate controlling agents Card cath of 05/17/19: No angiographically significant coronary artery disease. Normal left ventricular end diastolic pressure. Normal left ventricular systolic function with an ejection fraction of 50% to 65% Abnormal ECG. 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 This was well controlled after initiation of therapy with Multaq by Dr. Mohamud of the Electrophysiology Services at [facility], but she now refuses Multaq or amiodarone or other antiarrhythmic meds, including Cardizem Normal global left ventricular systolic function with an ejection fraction of 60 to 65% and high normal left ventricular end-diastolic pressure at the time of cardiac catheterization of June 2008. Normal global left ventricular systolic function with an ejection fraction of approximately 65% per echocardiogram carried out on 12/08/2011. ATILIO of 03/22/15 was 0.95 on R and 0.96 on L Surgical history: History of surgery for basal cell carcinoma. History of surgery for hiatal hernia, carpal tunnel surgery, rib repair surgery, and back surgery. History of surgery for uterovaginal prolapse and stress urinary incontinence. External and internal hemorrhoids on colonoscopy of September 2012. H/o varicose veins, and left ankle venous ulcer. History of glaucoma. 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 Hypertension, labile. Echo of January 12, 2019 showed LVEF 60 - 65%; mild MR; AoV thickening, consistent with sclerosis; RVSP approx 31 mmHg Obstructive sleep apnea, currently being managed with C-PAP therapy and followed with Dr. Mathew. Carotid ultrasound of May 2019 showed minimal carotid arterial disease without evidence of hemodynamically significant stenosis. Chronic UTI, being managed by Dr Martinez and Dr Wyman Chronic urinary incontinence, treated with hysterectomy and bladder sling, per Dr Haq and Dr Wyman H/o of some blood pressure difference between arms. 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 No clinical or echo evidence of pericarditis. Feels well today and wishes to go home * Pacemaker care and f/u discussed * Outpt f/u scheduled * Questins answered * We have advised rate controlling agents d/t tachycardia, since PPM will protect her from bradycardia, but she has refused * Continue OAC d/t PAF * Implant site check on Thursday * Out pt f/u in 2 weeks MAKI GARCIA MD FACP FAC CCDS November 16, 2019 12:28
--- NOTE | 2019-11-16 12:29 | Discharge Inst-Post Device ---
Discharge Inst-Post Device Heart Healthy Diet Do not lift arm on side of device placement above head for 4 weeks. Do not push and pull heavy objects for 4 weeks. Activity as tolerated. No driving for one week. Leave dressing on until follow up at the office. MAKI GARCIA MD FACP FACC [facility]S November 16, 2019 12:29
== END 2019-11-16 13:35 | disposition home or self-care (01) ==
LOC: CATH 07:02 → ICU 12:06 → CATH 11-16 13:35
PROVIDERS: ATTEND Internal Medicine Cardiovascular Disease
DX: I49.5 Sick sinus syndrome (principal); I49.3 Ventricular premature depolarization; I48.0 Paroxysmal atrial fibrillation; I10 Essential (primary) hypertension; I45.2 Bifascicular block; I77.4 Celiac artery compression syndrome; I35.8 Other nonrheumatic aortic valve disorders; I73.9 Peripheral vascular disease, unspecified; I77.1 Stricture of artery; G47.33 Obstructive sleep apnea (adult) (pediatric); N39.0 Urinary tract infection, site not specified; R32 Unspecified urinary incontinence; G90.521 Complex regional pain syndrome I of right lower limb; Z79.01 Long term (current) use of anticoagulants; Z99.89 Dependence on other enabling machines and devices; Z88.7 Allergy status to serum and vaccine; Z88.6 Allergy status to analgesic agent; Z85.828 Personal history of other malignant neoplasm of skin; Z90.710 Acquired absence of both cervix and uterus
CPT/HCPCS: 33208; 36415; 71046; 80053; 80061; 85027; 85610; 85730; 87081; 93005; 93306

== ENCOUNTER 2019-12-11 16:34 | Emergency (ER) | payer MEDICARE, OTHER ==
[~2019-12-11] VITALS: Ht 172 cm; Wt 91.0 kg
[~2019-12-11 16:34] MED LIST changes: +CEFU500T63 PO; -HEParin (CATH LAB) 1,000 ML IV ONE; +LATA2.5D5 OD; -LIDOCAINE 1% INJ 20 ML 20 ML VIAL ONE; -NS IV 1000 ML 1,000 ML ONE; +SULF1TAB34 PO; +SULF1TAB35 PO; -ceFAZolin INJECTION 1,000 MG ONE
[2019-12-11 16:55] VITALS: BP 152/81
[2019-12-11] MEDS ORDERED: CEPHALEXIN 250 MG (KEFLEX) CAP PO ONE (17:00)
--- NOTE | 2019-12-11 17:01 | ED Upper Extremity ---
General Stated Complaint: L FOOT BIG TOE INJ Source: patient Exam Limitations: no limitations History of Present Illness Date Seen by Provider: December 11, 2019 Time Seen by Provider: 16:58 Initial Comments To ER with left big toe injury. She was walking barefoot in the yard when she tripped. Her left big toe is always flexed and she has difficulty extending it. She tripped over a hose further flexibly already flexed toe and heard a snapping sound. She noticed some bleeding to The top of her toe. does not believe she struck it on anything. Onset: just prior to arrival Severity: moderate Pain/Injury Location: left other (great toe) Method of Injury: fell Modifying Factors: Worse With Movement Allergies and Home Medications Allergies Coded Allergies: Tetanus Vaccines and Toxoid (Unverified Allergy, Unknown, 10/22/17) meperidine (Unverified Adverse Reaction, Mild, VOMITING, 10/22/17) Home Medications Cefuroxime Axetil 500 Mg Tablet, 500 MG PO BID Prescribed by: DONNA LOZANO on 11/16/19 0850 Latanoprost 2.5 Ml Drops, 1 DROP OD HS, (Reported) Lisinopril 5 Mg Tablet, 5 MG PO BID, (Reported) Sulfamethoxazole/Trimethoprim 1 Each Tablet, 0.5 EA PO HS, (Reported) Warfarin Sodium 5 Mg Tablet, 5 MG PO SuTuWeFrSa, (Reported) TAKE 1TAB (5MG)SUN,TUE,WED,FRI&SAT THEN TAKE 1&1/2 TABS (7.5MG) ON MON AND THUR Warfarin Sodium 5 Mg Tablet, 7.5 MG PO MoTh, (Reported) TAKE 1TAB (5MG)SUN,TUE,WED,FRI&SAT THEN TAKE 1&1/2 TABS (7.5MG) ON MON AND THUR Patient Home Medication List Home Medication List Reviewed: Yes Review of Systems Constitutional: see HPI EENTM: see HPI Respiratory: no symptoms reported Cardiovascular: no symptoms reported Genitourinary: no symptoms reported Musculoskeletal: see HPI Skin: no symptoms reported Psychiatric/Neurological: No Symptoms Reported Past [id number]-[id number] Hx Patient Social History 2nd Hand Smoke Exposure: No Recent Foreign Travel: No Contact w/Someone Who Travel: No Recent Hopitalizations: No Immunizations Up To Date Tetanus Booster (TDap): Unknown PED Vaccines UTD: No Date of Pneumonia Vaccine: May 17, 2018 Seasonal Allergies Seasonal Allergies: No Past Medical History Surgeries: Yes (carpel tunnel, hiatal hernia, skin ca removed, implanted recorder for heart) Abdominal, Hysterectomy, Orthopedic Respiratory: Yes Sleep Apnea Currently Using CPAP: Yes Cardiac: Yes Atrial Fibrillation, Hypertension Neurological: No Reproductive Disorders: No Sexually Transmitted Disease: No HIV/AIDS: No Genitourinary: Yes Bladder Infection, UTI-Chronic Gastrointestinal: Yes Chronic Constipation Musculoskeletal: Yes (MILD) Arthritis Endocrine: No HEENT: Yes Glaucoma Loss of Vision: Bilateral Cancer: Yes Skin What Type of Treatment Did You: Surgical Intervention Psychosocial: No Integumentary: Yes Psoriasis Blood Disorders: No Adverse Reaction/Blood Tranf: No (HAS HAD BLOOD WITH NO REACTION) Family Medical History Colon cancer 19 MOTHER FH: stroke 19 FATHER Pulmonary fibrosis G8 BROTHER Cancer, CVA Physical Exam Vital Signs Capillary Refill : Height, Weight, BMI Height: 5'8.00" Weight: 197lbs. 0.0oz. 89.299086la; 28.08 BMI Method:Stated General Appearance: WD/WN, no apparent distress Respiratory: no respiratory distress, no accessory muscle use Shoulder: normal inspection, non-tender Elbow/Forearm: normal inspection, non-tender Hand: normal inspection, non-tender Neurologic/Psychiatric: alert, normal mood/affect, oriented x 3 Skin: normal color, warm/dry There is a 2 cm laceration to the dorsal aspect of the left great toe at the IP joint Procedures/Interventions Wound Location: Lower Extremities Wound Length (cm): 2.5 Wound's Depth, Shape: linear, sub Q Wound Explored: clean Irrigated w/ Saline (ccs): 200 Anesthesia: 1% Lidocaine Volume Anesthetic (ccs): 2 Suture Size: 4-0 Number of Sutures: 5 Layer Closure?: 1 Number Deep Layer Sutures: 0 Progress/Results/Core Measures Results/Orders My Orders Orders - STAR TREJO APRN Foot, Left, 3 Views (12/11/19 16:57) Cephalexin Capsule (Keflex Capsule) (12/11/19 17:00) Medications Given in ED Current Medications Medications Dose Ordered Sig/Wyatt Route Start Time Stop Time Status Last Admin Dose Admin Cephalexin HCl 500 mg ONCE ONCE PO 12/11/19 17:00 12/11/19 17:01 DC 12/11/19 17:06 500 MG Departure Impression Primary Impression: Toe laceration Qualified Codes: S91.112A - Laceration without foreign body of left great toe without damage to nail, initial encounter Disposition: 01 HOME, SELF-CARE Condition: Stable Departure-Patient Inst. Decision time for Depature: 17:30 Referrals: GAGE MARTINEZ MD (PCP/Family) Primary Care Physician Patient Instructions: Laceration Repair With Stitches (DC) Add. Discharge Instructions: 1. Call Dr. Martinez tomorrow to make an appointment to be seen for follow-up 2. Return to ER for any concerns 3. Antibiotics as directed pain medication as needed. You can shower letting water run over this starting tonight. Stitches can be removed here in ER in about 10 days Scripts Amoxicillin/Potassium Clav (Augmentin 875-125 Tablet) 1 Each Tablet 1 EACH PO BID, #6 TAB 0 Refills Prov: STAR TREJO APRN 12/11/19 STAR TREJO APRN December 11, 2019 17:01
--- NOTE | 2019-12-11 17:20 | Diagnostic Imaging Report ---
INDICATION: Left big toe injury. EXAMINATION: Three views of the left big toe. FINDINGS: There are no displaced fractures. IMPRESSION: Negative left big toe. Dictated by: Dictated on workstation # [id number]
[2019-12-11] MEDS ORDERED: AMOX-358 PO (17:33)
[2019-12-11] MEDS ORDERED: RX-AMOX/CLAV. (AUGMENTIN) 500MG TAB PPK#2 PO STA (17:34)
[2019-12-11] MEDS ORDERED: RX-HYDROCODONE/APAP 5/325 MG #4 TAB PK PO PRN (17:45)
== END 2019-12-11 17:55 | disposition home or self-care (01) ==
LOC: EDUNIT# 16:34 → ER 16:35
DX: S91.112A Laceration without foreign body of left great toe without damage to nail, initial encounter (principal); I48.91 Unspecified atrial fibrillation; I10 Essential (primary) hypertension; Z80.0 Family history of malignant neoplasm of digestive organs; Z79.01 Long term (current) use of anticoagulants; Z85.828 Personal history of other malignant neoplasm of skin; W01.0XXA Fall on same level from slipping, tripping and stumbling without subsequent striking against object, initial encounter; Y92.007 Garden or yard of unspecified non-institutional (private) residence as the place of occurrence of the external cause
CPT/HCPCS: 73630

== ENCOUNTER 2019-12-13 07:15 | Day surgery (SDC) | payer MEDICARE, OTHER ==
[~2019-12-13] VITALS: Ht 173 cm; Wt 91.0 kg
[~2019-12-13 07:15] MED LIST changes: +AMOX-358 PO; +LIDOCAINE 1% INJ 20 ML 20 ML VIAL ONE
--- OUTSIDE RECORDS SUMMARY | 2019-12-13 07:19 | XMS REPORT | Clinical Summary ---
Author Author [facility] Organization [facility] Address Unknown Phone Unavailable Care Team Providers Care Agent Contract Clerk Name Role Phone Mustapha Mohamud MD Unavailable Trenton Martinez MD PCP Source Comments Some departments are not documenting in the electronic medical record. If you d o not see the information that you expected, contact Release of Information in [facility] [employer] Information Management department at [phone] for further assistan ce in locating additional records.[facility] Allergies Comments Active Allergy Reactions Severity [...] on CPAP 05/04/2012 Overview: Sleep Study in [place], [place] on 04/16/12 and report sent to [...]
--- OUTSIDE RECORDS SUMMARY | 2019-12-13 07:21 | XMS REPORT | Continuity of Care Document ---
Author Organization Unknown Address Unknown Phone Unavailable Allergies Active Description Code Type Severity Reaction Onset Reported/Identified Relationship to Patient Clinical Status Yes Tetanus Vaccines Toxoid [id number] Drug Allergy Unknown N/A 03/19/2007 Yes meperidine [id number] Drug Allerg y Mild VOMITING 10/22/2017 Yes Tetanus Vaccines and Toxoid [id number] Drug Allergy Unknown N/A 10/22/2017 Medications There is no data. Problems Date Dx Coded Attending Type Code Diagnosis Diagnosed By SHIRA JANE [facility] Ot S82.65XD NONDISP FX OF LATERAL MALLEOLUS OF L FIB SHIRA JANE [facility] Ot X58.XXXD EXPOSURE TO OTHER SPECIFIED FACTORS, SUB SHIRA JANE [facility] Ot Y92.[address] [facility]SP NON-INSTITUT (PRIVATE SHIRA JANE [facility] Ot Y99.8 OTHER EXTERNAL CAUSE STATUS 02/18/2012 [...] OTH MED,LT,CURRENT USE 05/27/2014 STACI NEGRON, GAGE Burkett Ot 793.8 9 08/21/2014 LUIS NEGRON, LATASHA [...] FACP CCDS Ot 173.91 04/11/2015 JOSE NEGRON [facility], ALI FACP CCDS Ot 401.9 04/11/2015 JOSE MD [facility], ALI FACP CCDS Ot 424.1 04/11/2015 JOSE MD [facility], ALI FACP CCDS Ot 427.31 04/11/2015 JOSE [facility], ALI FACP CCDS Ot 427.81 04/11/2015 JOSE [facility], ALI FACP CCDS Ot 443.9 04/11/2015 JOSE MD [facility], ALI FACP CCDS Ot 447.1 04/12/2015 STACI NEGRON, GAGE Burkett Ot 793.8 0 08/23/2015 Ot N63 10/22/2015 STAR TREJO APRN Ot S92.351A DISP FX OF FIFTH METATARSAL BONE, RIGHT 10/22/2015 STAR TREJO APRN Ot X58.XXXA EXPOSURE TO OTHER SPECIFIED FACTORS, INI 10/22/2015 STAR TREJO APRN Ot Y92.[address] IN [facility] NON-INSTITUT (PRIVATE 10/22/2015 STAR TREJO APRN Ot Y99 .8 OTHER EXTERNAL CAUSE STATUS 10/24/2015 STAR TREJO APRN Ot S92.351A 10/24/2015 STAR TREJO APRN Ot X58.XXXA 10/24/2015 STAR TREJO PLANT MAINTENANCE TECHNICIAN Ot Y92.009 10/24/2015 STAR TREJO PLANT MAINTENANCE TECHNICIAN Ot Y99 .8 10/24/2015 GAGE SMALL MD Ot 793.8 9 10/24/2015 GAGE SMALL MD Ot 793.8 9 12/11/2015 SHIRA JANE S[employer] SPECIALIST Ot S82.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 8 OTHER EXTERNAL CAUSE STATUS 01/04/2016 SHIRA JANE Kwadwo SENSOR SPECIALIST Ot S82.65XD NONDISP FX OF LATERAL MALLEOLUS OF L FIB 01/04/2016 SHIRA JANE Kwadwo SENSOR SPECIALIST Ot X58.XXXD EXPOSURE TO OTHER SPECIFIED FACTORS, SUB 01/04/2016 SHIRA JANE SENSOR SPECIALIST Ot Y92.[address] IN [facility] NON-INSTITUT (PRIVATE 01/04/2016 SHIRA JANE Kwadwo SENSOR SPECIALIST Ot Y99. 8 OTHER EXTERNAL CAUSE STATUS 01/17/2016 SHIRA JANE SENSOR SPECIALIST Ot S82.65XD NONDISP FX OF LATERAL MALLEOLUS OF L FIB 01/17/2016 SHIRA JANE SENSOR SPECIALIST Ot X58.XXXD EXPOSURE TO OTHER SPECIFIED FACTORS, SUB 01/17/2016 SHIRA JANE SENSOR SPECIALIST Ot Y92.[address] IN [facility] NON-INSTITUT (PRIVATE 01/17/2016 SHIRA JANE SENSOR SPECIALIST Ot Y99. 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 07/20/2017 DONNA LOZANO L SENSOR SPECIALIST Ot J98.4 OTHER DISORDERS OF LUNG 07/20/2017 WARNER LOZANOHER L SENSOR SPECIALIST Ot K76.89 OTHER SPECIFIED DISEASES OF LIVER 07/20/2017 WARNER LOZANOHER L SENSOR SPECIALIST Ot Z87.39 PERSONAL HISTORY OF DISEASES OF THE MS S 08/13/2017 DONNA LOZANO L SENSOR SPECIALIST Ot 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 OF AORTA 08/13/2017 DONNA LOAZNO L SENSOR SPECIALIST Ot 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 08/13/2017 DONNA LOZANO L SENSOR SPECIALIST Ot J98.4 OTHER DISORDERS OF LUNG 08/13/2017 DONNA LOZANO L SENSOR SPECIALIST Ot K76.89 OTHER SPECIFIED DISEASES OF LIVER 08/13/2017 WARNER LOZANOHER L SENSOR SPECIALIST Ot Z87.39 PERSONAL HISTORY OF DISEASES OF THE MS S 08/13/2017 DONNA LOZANO L SENSOR SPECIALIST Ot 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 OF AORTA 08/13/2017 DONNA LOZANO L SENSOR SPECIALIST Ot 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 08/13/2017 DONNA LOZANO L SENSOR SPECIALIST Ot J98.4 OTHER DISORDERS OF LUNG 08/13/2017 DONNA LOZANO L SENSOR SPECIALIST Ot K76.89 OTHER SPECIFIED DISEASES OF LIVER 08/13/2017 WARNER LOZANOHER L SENSOR SPECIALIST Ot Z87.39 PERSONAL HISTORY OF DISEASES OF [...] FOR MALIGNANT NE 10/21/2017 MARTA DONNA L SENSOR SPECIALIST Ot 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 OF AORTA 10/21/2017 MARTA DONNA L SENSOR SPECIALIST Ot 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 10/21/2017 MARTA DONNA L SENSOR SPECIALIST Ot J98.4 OTHER DISORDERS OF LUNG 10/21/2017 MARTA DONNA L SENSOR SPECIALIST Ot K76.89 OTHER SPECIFIED DISEASES OF LIVER 10/21/2017 MARTA DONNA L SENSOR SPECIALIST Ot Z87.39 PERSONAL HISTORY OF DISEASES OF [...] MAMMOGRAM FOR MALIGNANT NE 10/22/2017 DONNA LOZANO SENSOR SPECIALIST Ot 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 OF AORTA 10/22/2017 DONNA LOZANO SENSOR SPECIALIST Ot 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 10/22/2017 DONNA LOZANO SENSOR SPECIALIST Ot J98.4 OTHER DISORDERS OF LUNG 10/22/2017 DONNA LOZANO SENSOR SPECIALIST Ot K76.89 OTHER SPECIFIED DISEASES OF LIVER 10/22/2017 DONNA LOZANO SENSOR SPECIALIST Ot Z87.39 PERSONAL HISTORY OF DISEASES OF [...] 8 ENCOUNTER FOR OTHER PREPROCEDURAL EXAMIN 10/23/2017 DEDIRA LORD MD Ot Z12.11 ENCOUNTER FOR SCREENING [...] MAMMOGRAM FOR MALIGNANT NE 10/28/2017 DONNA LOZANO SENSOR SPECIALIST Ot 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 OF AORTA 10/28/2017 DONNA LOZANO SENSOR SPECIALIST Ot 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 10/28/2017 DONNA LOZANO SENSOR SPECIALIST Ot J98.4 OTHER DISORDERS OF LUNG 10/28/2017 DONNA LOZANO SENSOR SPECIALIST Ot K76.89 OTHER SPECIFIED DISEASES OF LIVER 10/28/2017 DONNA LOZANO L SENSOR SPECIALIST Ot Z87.39 PERSONAL HISTORY OF DISEASES OF [...] HISTORY OF OTH (HEALED) PHYSICA 10/30/2017 DEIDRA LORD MD Ot G47.30 SLEEP APNEA, UNSPECIFIED 10/30/2017 [...] NE 10/30/2017 DEIDRA LORD MD, Ot Z79.01 PENITENTIARY (CURRENT) USE OF ANTICOAGULANT 10/30/2017 DEIDRA LORD MD, Ot Z79.89 9 OTHER PENITENTIARY (CURRENT) DRUG THERAPY 10/30/2017 DEIDRA LORD MD, [...] NE 11/03/2017 DEIDRA LORD MD, Ot Z79.01 PENITENTIARY (CURRENT) USE OF ANTICOAGULANT 11/03/2017 DEIDRA LORD MD, Ot Z79.89 9 OTHER PENITENTIARY (CURRENT) DRUG THERAPY 11/03/2017 DEIDRA LORD MD, [...] OF SKIN OF OTH UN 03/08/2018 CORTNEY HERNANDEZ MD Ot V58.61 ANTICOAGULANTS,LT,CURRENT USE 03/08/2018 CORTNEY [...] Ot 793.8 0 UNSPEC ABNORMAL MAMMOGRAM 03/08/2018 JOSE NEGRON FACC, ALI FACP CCDS [...] MAMMOGRAM FOR MALIGNANT NE 03/08/2018 DONNA LOZANO SENSOR SPECIALIST Ot 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 OF AORTA 03/08/2018 DONNA LOZANO SENSOR SPECIALIST Ot 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 51 TARSAL TUNNEL SYNDROME, RIGHT LOWER LIMB 04/08/2018 ANNETTE DPM, BECCA Q Ot M19.071 PRIMARY OSTEOARTHRITIS, RIGHT ANKLE AND 06/28/2018 TOVA EDWARDS PLANT MAINTENANCE TECHNICIAN Ot M17.11 UNILATERAL PRIMARY OSTEOARTHRITIS, RIGHT 06/28/2018 TOVA EDWARDS PLANT MAINTENANCE TECHNICIAN Ot S89.91XA UNSPECIFIED INJURY OF RIGHT LOWER LEG, I 06/28/2018 TOVA EDWARDS PLANT MAINTENANCE TECHNICIAN Ot W19.XXXA UNSPECIFIED FALL, INITIAL ENCOUNTER 06/29/2018 NYA NEGRON, FABIANA Robbins Ot M79.89 OTHER SPECIFIED SOFT TISSUE DISORDERS 07/15/2018 TOVA EDWARDS PLANT MAINTENANCE TECHNICIAN Ot M17.11 UNILATERAL PRIMARY OSTEOARTHRITIS, RIGHT 07/15/2018 TOVA EDWARDS PLANT MAINTENANCE TECHNICIAN Ot S89.91XA UNSPECIFIED INJURY OF RIGHT LOWER LEG, I 07/15/2018 TOVA EDWARDS PLANT MAINTENANCE TECHNICIAN Ot W19.XXXA UNSPECIFIED FALL, INITIAL ENCOUNTER 07/21/2018 FABIANA FAY MD Ot M79.89 OTHER SPECIFIED SOFT TISSUE DISORDERS 03/09/2019 GAGE SMALL MD Ot Z12.3 1 ENCNTR SCREEN MAMMOGRAM FOR MALIGNANT NE 03/09/2019 TOVA EDWARDS PLANT MAINTENANCE TECHNICIAN Ot M17.11 UNILATERAL PRIMARY OSTEOARTHRITIS, RIGHT 03/09/2019 TOVA EDWARDS PLANT MAINTENANCE TECHNICIAN Ot S89.91XA UNSPECIFIED INJURY OF RIGHT LOWER LEG, I 03/09/2019 TOVA EDWARDS PLANT MAINTENANCE TECHNICIAN Ot W19.XXXA UNSPECIFIED FALL, INITIAL ENCOUNTER 03/09/2019 NYA NEGRON, FABIANA Robbins Ot M79.89 OTHER SPECIFIED SOFT TISSUE DISORDERS 03/09/2019 STACI NEGRON, GAGE Burkett Ot Z12.3 1 ENCNTR SCREEN MAMMOGRAM FOR MALIGNANT NE 03/09/2019 GAGE SMALL MD Ot Z12.3 1 [...] SYNCOPE AND COLLAPSE 05/18/2019 JOSE NEGRON FACC, MAKI FACP CCDS [...] GARCIA MD, FACC FACP CCDS Ot Z79.01 PENITENTIARY (CURRENT) USE OF ANTICOAGULANT 05/18/2019 MAKI GARCIA [...] GARCIA MD, FACC FACP CCDS Ot Z79.01 AUTOMOTIVE TECHNICIAN (CURRENT) USE OF ANTICOAGULANT 05/24/2019 MAKI GARCIA [...] TRACT INFECTION, SITE NOT SPECIF 05/24/2019 JOSE NERGON FACC, MAKI FACP CCDS Ot Z73.9 PROBLEM RELATED TO LIFE MANAGEMENT DIFFI 05/24/2019 MAKI GARCIA MD, FACC FACP CCDS Ot Z79.01 AUTOMOTIVE TECHNICIAN (CURRENT) USE OF ANTICOAGULANT 05/24/2019 JOSE NEGRON [...] OTH DRUG/MEDS/BIOL SUB 05/31/2019 JOSE NEGRON FACC, MKAI FACP CCDS Ot G47.33 OBSTRUCTIVE SLEEP APNEA (ADULT) (PEDIATR 05/31/2019 JOSE NEGRON FACC, MAKI FACP CCDS Ot G90.521 COMPLEX REGIONAL PAIN SYNDROME I OF [facility] 05/31/2019 JOSE NEGRON FACC, MAKI FACP CCDS Ot H40.9 UNSPECIFIED GLAUCOMA 05/31/2019 OJSE NEGRON FACC, MAKI FACP CCDS Ot I10 [...] NEGRON FACC, MAKI FACP CCDS Ot Z79.01 AUTOMOTIVE TECHNICIAN (CURRENT) USE OF ANTICOAGULANT 05/31/2019 JOSE NEGRON FACC, ALI FACP CCDS Ot Z79.899 OTHER AUTOMOTIVE TECHNICIAN (CURRENT) DRUG THERAPY 05/31/2019 JOSE NEGRON FACC, MAKI FACP CCDS Ot Z85.828 PERSONAL HISTORY OF OTHER MALIGNANT NEOP 05/31/2019 JSOE NEGRON FACC, MAKI FACP CCDS Ot Z88.5 ALLERGY STATUS TO NARCOTIC AGENT STATUS 05/31/2019 JOSE NEGRON FACC, MAKI FACP CCDS Ot Z88.7 ALLERGY STATUS TO SERUM AND VACCINE STAT 06/03/2019 JOSE NEGRON FACC, MAKI FACP CCDS Ot G47.33 OBSTRUCTIVE SLEEP APNEA (ADULT) (PEDIATR 06/03/2019 JOSE NEGRON FACC, MAKI FACP CCDS Ot G90.521 COMPLEX REGIONAL PAIN SYNDROME I OF [facility] 06/03/2019 JOSE NEGRON FACC, MAKI [...] NEGRON FACC, MAKI FACP CCDS Ot Z79.01 PENITENTIARY (CURRENT) USE OF ANTICOAGULANT 06/03/2019 JOSE NEGRON FACC, MAKI FACP CCDS Ot Z79.899 OTHER AUTOMOTIVE TECHNICIAN (CURRENT) DRUG THERAPY 06/03/2019 JOSE NEGRON FACC, [...] UNILATERAL PRIMARY OSTEOARTHRITIS, RIGHT 11/14/2019 TOVA EDWARDS PLANT MAINTENANCE TECHNICIAN Ot S89.91XA UNSPECIFIED INJURY OF RIGHT LOWER LEG, I 11/14/2019 TOVA EDWARDS PLANT MAINTENANCE TECHNICIAN Ot W19.XXXA UNSPECIFIED FALL, INITIAL ENCOUNTER 11/14/2019 NYA NEGRON, FABIANA A Ot M79.89 OTHER SPECIFIED SOFT TISSUE DISORDERS 11/14/2019 STACI NEGRON, GAGE Burkett Ot Z12.3 1 ENCNTR SCREEN MAMMOGRAM FOR MALIGNANT NE 11/14/2019 JOSE NEGRON FACC, ALI FACP CCDS Ot R55 SYNCOPE AND COLLAPSE 11/16/2019 JOSE BAILEY, ALI FACP CCDS Ot G47.33 OBSTRUCTIVE SLEEP APNEA (ADULT) (PEDIATR 11/16/2019 JOSE NEGRON FACC, ALI FACP CCDS Ot G90.521 COMPLEX REGIONAL PAIN SYNDROME I OF [place] 11/16/2019 JOSE BAILEY, ALI FACP CCDS Ot I10 ESSENTIAL (PRIMARY) HYPERTENSION 11/16/2019 JOSE NEGRON [facility], ALI FACP CCDS Ot 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 11/16/2019 JOSE NEGRON FACC, ALI FACP CCDS Ot I45.2 BIFASCICULAR BLOCK 11/16/2019 JOSE BAILEY, ALI FACP CCDS Ot I48.0 PAROXYSMAL ATRIAL FIBRILLATION 11/16/2019 JOSE NEGRON FACC, ALI FACP CCDS Ot I49.3 VENTRICULAR PREMATURE DEPOLARIZATION 11/16/2019 JOSE NEGRON [facility], ALI FACP CCDS Ot I49.5 SICK SINUS SYNDROME 11/16/2019 JOSE NEGRON [facility], ALI FACP CCDS Ot I73.9 PERIPHERAL VASCULAR DISEASE, UNSPECIFIED 11/16/2019 JOSE BAILEY, ALI FACP CCDS Ot I77.1 STRICTURE OF ARTERY 11/16/2019 JOSE BAILEY, ALI FACP CCDS Ot 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 11/16/2019 JOSE NEGRON FACC, ALI FACP CCDS Ot N39.0 URINARY TRACT INFECTION, SITE NOT SPECIF 11/16/2019 JOSE BAILEY, ALI FACP CCDS Ot R32 UNSPECIFIED URINARY INCONTINENCE 11/16/2019 JOSE BAILEY, ALI FACP CCDS Ot Z79.01 PENITENTIARY (CURRENT) USE OF ANTICOAGULANT 11/16/2019 JOSE NEGRON FACC, ALI FACP CCDS Ot Z85.828 PERSONAL HISTORY OF OTHER MALIGNANT NEOP 11/16/2019 JOSE NEGRON FACC, ALI FACP CCDS Ot Z88.6 ALLERGY STATUS TO ANALGESIC AGENT STATUS 11/16/2019 JOSE NEGRON FACC, ALI FACP CCDS Ot Z88.7 ALLERGY STATUS TO SERUM AND VACCINE STAT 11/16/2019 JOSE NEGRON FACC, ALI FACP CCDS Ot Z90.710 ACQUIRED ABSENCE OF BOTH CERVIX AND UTER 11/16/2019 JOSE NEGRON FACC, MAKI FACP CCDS Ot Z99.89 DEPENDENCE ON OTHER ENABLING MACHINES AN 11/21/2019 JOSE NEGRON FACC, ALI FACP CCDS Ot G47.33 OBSTRUCTIVE SLEEP APNEA (ADULT) (PEDIATR 11/21/2019 JOSE NEGRON FACC, ALI FACP CCDS Ot G90.521 COMPLEX REGIONAL PAIN SYNDROME I OF [place] 11/21/2019 JOSE NEGRON FACC, MAKI FACP CCDS Ot I10 ESSENTIAL (PRIMARY) HYPERTENSION 11/21/2019 JOSE NEGRON FACC, ALI FACP CCDS Ot 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 11/21/2019 JOSE NEGRON FACC, ALI FACP CCDS Ot I45.2 BIFASCICULAR BLOCK 11/21/2019 JOSE NEGRON FACC, ALI FACP CCDS Ot I48.0 PAROXYSMAL ATRIAL FIBRILLATION 11/21/2019 JOSE NEGRON FACC, ALI FACP CCDS Ot I49.3 VENTRICULAR PREMATURE DEPOLARIZATION 11/21/2019 JOSE NEGRON FACC, MAKI FACP CCDS Ot I49.5 SICK SINUS SYNDROME 11/21/2019 JOSE NEGRON FACC, ALI FACP CCDS Ot I73.9 PERIPHERAL VASCULAR DISEASE, UNSPECIFIED 11/21/2019 JOSE BAILEY, ALI FACP CCDS Ot I77.1 STRICTURE OF ARTERY 11/21/2019 JOSE NEGRON FACC, ALI FACP CCDS Ot 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 11/21/2019 JOSE NEGRON FACC, MAKI FACP CCDS Ot N39.0 URINARY TRACT INFECTION, SITE NOT SPECIF 11/21/2019 JOSE NEGRON FACC, ALI FACP CCDS Ot R32 UNSPECIFIED URINARY INCONTINENCE 11/21/2019 JOSE NEGRON FACC, ALI FACP CCDS Ot Z79.01 PENITENTIARY (CURRENT) USE OF ANTICOAGULANT 11/21/2019 JOSE NEGRON FACC, ALI FACP CCDS Ot Z85.828 PERSONAL HISTORY OF OTHER MALIGNANT NEOP 11/21/2019 JOSE NEGRON FACC, ALI FACP CCDS Ot Z88.6 ALLERGY STATUS TO ANALGESIC AGENT STATUS 11/21/2019 JOSE NEGRON FACC, ALI FACP CCDS Ot Z88.7 ALLERGY STATUS TO SERUM AND VACCINE STAT 11/21/2019 JOSE NEGRON [facility], MAKI [facility] CCDS Ot Z90.710 ACQUIRED ABSENCE OF BOTH CERVIX AND UTER 11/21/2019 JOSE BAILEY, MAKI [facility] CCDS Ot Z99.89 DEPENDENCE ON OTHER ENABLING MACHINES AN Procedures There is no data. Results Test Result Range [id number] - 04/21/16 09:29 Serum or plasma urea [...] - 05/18/19 05:10 Magnesium 2.0 mg/dL 1.6-2.4 Automated blood complete blood count (he mogram) panel - 11/15/19 07:34 Blood leukocytes automated count (number/volume) 4.4 10*3/uL 4.3-11.0 Blood erythrocytes automated count (number/volume) 4.36 10*6/uL 4.35-5.85 Venous blood hemoglobin measurement (mass/volume) 12.4 g/dL 11.5-16.0 Blood hematocrit (volume fraction) 39 % 35-52 Automated erythrocyte mean corpuscular volume 88 [ foz_us] 80-99 Automated erythrocyte mean corpuscular h emoglobin (mass per erythrocyte) 28 pg 25-34 Automated erythrocyte mean corpuscular h emoglobin concentration measurement (mass/volume) 32 g/dL 32-36 Automated erythrocyte distribution width ratio 14. 6 % 10.0- 14.5 Automated blood platelet count (count/volume) 161 10*3/uL 130-400 Automated blood platelet mean volume measurement 11.9 [foz_us] 7.4-10.4 Comprehensive metabolic panel - 11/15/19 07:34 Serum or plasma sodium measurement (moles/volume) 142 mmol/L 135-145 Serum or plasma potassium measurement (moles/volume) 3.9 mmol/L 3.6-5.0 Serum or plasma chloride measurement (moles/volume) 109 mmol/L 98-107 Carbon dioxide 21 mmol/L 21-32 Serum or plasma anion gap determination (moles/volume) 12 mmol/L 5-14 Serum or plasma urea nitrogen measurement (mass/volume ) 25 mg/dL 7-18 Serum or plasma creatinine measurement (mass/volume) 1.05 mg/dL 0.60-1.30 Serum or plasma urea nitrogen/creatinine mass ratio 24 NRG Serum or plasma creatinine measurement w ith calculation of estimated glomerular filtration rate 50 NRG Serum or plasma glucose measurement (mass/volume) 92 mg/dL 70-105 Serum or plasma calcium measurement (mass/volume) 8.7 mg/dL 8.5-10.1 Serum or plasma total bilirubin measurement (mass/volu me) 1.2 mg/dL 0.1-1.0 Serum or plasma alkaline phosphatase dali surement (enzymatic activity/volume) 78 U/L 40-136 Serum or plasma aspartate aminotransfera se measurement (enzymatic activity/volume) 18 U/L 5-34 Serum or plasma alanine aminotransferase measurement (enzymatic activity/volume) 12 U/L 0-55 Serum or plasma protein measurement (mass/volume) 6.8 g/dL 6.4-8.2 Serum or plasma albumin measurement (mass/volume) 3.9 g/dL 3.2-4.5 CALCIUM CORRECTED 8.8 mg/dL 8.5-10.1 PT panel in platelet poor plasma by coag ulation assay - 11/15/19 07:34 Prothrombin time (PT) in platelet poor plasma by coagu lation assay 16.4 s 12.2-14.7 INR in platelet poor plasma or blood by coagulation as say 1.3 0.8-1.4 Activated partial thromboplastin time (a PTT) in platelet poor plasma bycoagulation assay - 11/15/19 07:34 Activated partial thromboplastin time (a PTT) in platelet poor plasma bycoagulation assay 36 s 24-35 Lipid 1996 panel - 11/15/19 07:34 Serum or plasma triglyceride measurement (mass/volume) 92 mg/dL <150 Serum or plasma cholesterol measurement (mass/volume) 180 mg/dL < 200 Serum or plasma cholesterol in HDL measurement (mass/v olume) 55 mg/dL 40-60 Cholesterol in LDL [mass/volume] in serum or plasma by direct assay 116 mg/dL 1-129 Serum or plasma cholesterol in VLDL measurement (mass/ volume) 18 mg/dL 5-40 Methicillin resistant Staphylococcus aur eus (MRSA) screening culture - 11/15/19 07:34 Methicillin resistant Staphylococcus aureus (MRSA) scr eening culture NEG NRG Automated blood complete blood count (he mogram) panel - 11/16/19 03:16 Blood leukocytes automated count (number/volume) 4.7 10*3/uL 4.3-11.0 Blood erythrocytes automated count (number/volume) 3.75 10*6/uL 4.35-5.85 Venous blood hemoglobin measurement (mass/volume) 10.6 g/dL 11.5-16.0 Blood hematocrit (volume fraction) 34 % 35-52 Automated erythrocyte mean corpuscular volume 90 [ foz_us] 80-99 Automated erythrocyte mean corpuscular h emoglobin (mass per erythrocyte) 28 pg 25-34 Automated erythrocyte mean corpuscular h emoglobin concentration measurement (mass/volume) 31 g/dL 32-36 Automated erythrocyte distribution width ratio 14. 9 % 10.0- 14.5 Automated blood platelet count (count/volume) 128 10*3/uL 130-400 Automated blood platelet mean volume measurement 12.0 [foz_us] 7.4-10.4 Comprehensive metabolic panel - 11/16/19 03:16 Serum or plasma sodium measurement (moles/volume) 142 mmol/L 135-145 Serum or plasma potassium measurement (moles/volume) 4.0 mmol/L 3.6-5.0 Serum or plasma chloride measurement (moles/volume) 113 mmol/L 98-107 Carbon dioxide 20 mmol/L 21-32 Serum or plasma anion gap determination (moles/volume) 9 mmol/L 5-14 Serum or plasma urea nitrogen measurement (mass/volume ) 29 mg/dL 7-18 Serum or plasma creatinine measurement (mass/volume) 0.95 mg/dL 0.60-1.30 Serum or plasma urea nitrogen/creatinine mass ratio 31 NRG Serum or plasma creatinine measurement w ith calculation of estimated glomerular filtration rate 56 NRG Serum or plasma glucose measurement (mass/volume) 97 mg/dL 70-105 Serum or plasma calcium measurement (mass/volume) 8.0 mg/dL 8.5-10.1 Serum or plasma total bilirubin measurement (mass/volu me) 1.1 mg/dL 0.1-1.0 Serum or plasma alkaline phosphatase dali surement (enzymatic activity/volume) 66 U/L 40-136 Serum or plasma aspartate aminotransfera se measurement (enzymatic activity/volume) 13 U/L 5-34 Serum or plasma alanine aminotransferase measurement (enzymatic activity/volume) 9 U/L 0-55 Serum or plasma protein measurement (mass/volume) 5.7 g/dL 6.4-8.2 Serum or plasma albumin measurement (mass/volume) 3.3 g/dL 3.2-4.5 CALCIUM CORRECTED 8.6 mg/dL 8.5-10.1 Encounters ACCT No. Visit Date/Time Discharge Status Pt. Type Provider Facility Loc./Unit Complaint [id number] 12/11/2019 16:35:00 17:55:00 DIS Emergency STAR TREJO APRN [facility] ER L FOOT BIG TOE INJ [id number] 11/15/2019 07:02:00 13:35:00 DIS Outpatient JOSE NEGRON FACC, MAKI FORD CC DS [facility] CATH PAROXYSMAL AFIB,SINUS NODE DYSFUNCTION,SLEEP APNEA [id number] 05/31/2019 11:05:00 12:04:00 DIS Outpatient MAKI GARCIA MD, FACC, FACP CC DS [facility] CATH SYNCOPE [id number] 05/17/2019 07:02:00 13:29:00 DIS Outpatient JOSE NEGRON FACC, MAKI BAILEYP CC DS Via [facility] CATH SYNCOPE,PAR OXYSMAL AFIB,PVC [id number] 05/13/2019 13:06:00 23:59:59 CLS Outpatient MAKI GARCIA MD, FACC, FACP CC DS [facility] CARD SYNCOPE [id number] 03/09/2019 10:21:00 23:59:59 CLS Outpatient GAGE SMALL MD [facility] RAD SCREENING [id number] 06/28/2018 16:30:00 23:59:59 CLS Outpatient FABIANA FAY MD [facility] RAD RLE SWELLING, R LE PAIN [id number] 06/25/2018 11:49:00 018 23:59:59 CLS Outpatient GRACE TOVALizzette Arndt APRN [facility] RAD R KNEE PAIN [id number] 03/05/2018 13:32:00 018 11:10:00 DIS Outpatient ANNETTE YOST, BECCA Q [facility] REHAB SINUS TARSITIS; ARTHRIT IS OF SUBTALAR JOINT; [id number] 03/20/2018 12:20:00 018 15:00:00 DIS Inpatient LIBERTY NEGRON, KENNY Wilson [facility] 4TH VERTIGO/ATAXIA [id number] 03/08/2018 08:20:00 018 23:59:59 CLS Outpatient GAGE SMALL MD [facility] RAD SCREENING [id number] 10/30/2017 11:22:00 018 14:55:00 DIS Outpatient DEIDRA LORD MD [facility] ENDO SCREENING/FAMILY HX OF COLON CA [id number] 10/22/2017 05:35:00 018 10:29:00 DIS Outpatient DEIDRA LORD MD [facility] PREOP COLONOSCOPY [id number] 08/17/2017 13:05:00 018 23:59:59 CLS Outpatient ANNETTE YOST, BECCA Q [facility] RAD OSTEOARTHRITIS OF THE S UBTALAR JOINT [id number] 07/17/2017 09:45:00 018 23:59:59 CLS Outpatient DONNA LOZANO [facility] RAD I71.4 ABDOMINAL AORTIC ANEURYSM [id number] 02/26/2017 10:07:00 017 23:59:59 CLS Outpatient GAGE SMALL MD [facility] RAD SCREENING [id number] 08/11/2016 15:01:00 017 23:59:59 CLS Outpatient JOSE NEGRON FACC, MAKI FORD CC DS [facility] CARD A-FIB,SLEEP APNEA,AORTIC VALVE [id number] 07/18/2016 10:26:00 017 23:59:59 CLS Outpatient LATASHA KIM MD [facility] RAD LUMBAR RADICULOPATHY [id number] 04/21/2016 09:17:00 016 23:59:59 CLS Outpatient GAGE SMALL MD [facility] RAD PLEURETIC LT FLANK PAIN [id number] 02/20/2016 08:24:00 016 23:59:59 CLS Outpatient GAGE SMALL MD [facility] RAD ABNORMAL MAMMOGRAM [id number] 01/04/2016 11:34:00 08:59:00 DIS Outpatient SHIRA JANE [facility] REHAB NONDISPLACED FX LATERAL MALLEOLUS L FIBULA [id number] 10/22/2015 12:16:00 016 13:35:00 DIS Emergency STAR TREJO APRN [facility] ER FALL/RIGHT ANKLE INJURY [id number] 03/22/2015 09:44:00 015 23:59:59 CLS Outpatient MAKI GARCIA MD, FACC, FACP CC DS [facility] RAD PAD [id number] 03/07/2015 12:03:00 015 23:59:59 CLS Outpatient GAGE SMALL MD [facility] RAD SCREENING [id number] 12/07/2014 10:47:00 015 23:59:59 CLS Outpatient MAKI GARCIA MD, FACC, FACP CC DS [facility] RAD STENOSIS JARQUIN BCLAVIAN ARTERY [id number] 12/06/2014 08:18:00 015 23:59:59 CLS Outpatient MAKI GARCIA MD, FACC, FACP CC DS [facility] RAD SUBCLAVIAN STENOSIS [id number] 07/21/2014 13:11:00 015 23:59:59 CLS Outpatient LATASHA SMITH MD [facility] RAD REOCCURING FALLS, COUMA DIN THERAPY [id number] 05/27/2014 12:49:00 16:17:00 DIS Emergency PRASHANT SALINASLANDEN [facility] ER BLOOD IN URINE [id number] 03/06/2014 09:31:00 23:59:59 CLS Outpatient GAGE SMALL MD [facility] RAD 6 MONTH FOLLOW UP [id number] 11/15/2013 16:25:00 23:59:59 CLS Outpatient CORTNEY HERNANDEZ MD [facility] LABNPT ABSCESS (L) OF BACK [id number] 08/01/2013 10:47:00 23:59:59 CLS Outpatient GAGE SMALL MD [facility] RAD FOLLOW UP [id number] 02/09/2013 06:34:00 23:59:59 CLS Outpatient CORTNEY HERNANDEZ MD [facility] SDC SKIN LESION RIGHT EYEB ROW [id number] 02/07/2013 10:33:00 23:59:59 CLS Outpatient CORTNEY HERNANDEZ MD [facility] PREOP LESION RT EYEBROW [id number] 01/25/2013 10:50:00 23:59:59 CLS Outpatient GAGE SMALL MD [facility] RAD ABN MAMMO [id number] 01/14/2013 10:06:00 23:59:59 CLS Outpatient GAGE SMALL MD [facility] RAD SCREENING [id number] 12/13/2019 09:00:00 P ELIJAH GARCIA MD FACC, MAKI FACRebecca CCDS [facility] AFIB,SINUS NODE DYSFUNCTION,FATIGUE,PALPITATIONS [id number] 04/21/2016 09:16:00 Document Registration [id number] 2015 12:59:00 Document Registration [id number] 10/06/2012 09:10:00 Document Registration [id number] 09/30/2012 08:06:00 Document Registration [id number] 05/13/2012 20:04:00 Document Registration [id number] 04/16/2012 21:31:00 Document Registration [id number] 02/19/2012 00:00:00 Document Registration [id number] 01/05/2012 14:13:00 Document Registration [id number] 12/03/2011 13:57:00 Document Registration [id number] 11/20/2011 09:10:00 Document Registration [id number] 10/06/2011 12:48:00 Document Registration [id number] 09/29/2011 09:10:00 Document Registration [id number] 09/08/2011 12:55:00 Document Registration
[2019-12-13] MEDS ORDERED: LIDOCAINE 1% INJ 20 ML 20 ML VIAL INJ ONE (07:30)
[2019-12-13 07:37] VITALS: BP 164/81
--- NOTE | 2019-12-13 10:03 | Cardiac Procedure Note-CS/ASA ---
Pre-Procedure Note Pre-Op Procedure Note H&P Reviewed The H&P was reviewed, patient examined and no changes noted. Date H&P Reviewed: Dec 13, 2019 Time H&P Reviewed: 08:30 Conscious Sedation Pre-Proced Time 08:30 ASA Score 3 For ASA 3 and 4: Consider anesthesia and medical clearance. Also, for patients with a history of failed moderate sedation consider anesthesia. Airway Lungs Heart ASA score ASA 1: a normal healthy patient ASA 2: a patient with a mild systemic disease (mid diabetes, controlled hypertension, obesity ASA 3: a patient with a severe systemic disease that limits activity (angina, COPD, prior Myocardial infarction) ASA 4: a patient with an incapacitating disease that is a constant threat to life (CHF, renal failure) ASA 5: a moribund patient not expected to survive 24 hrs. (ruptured aneurysm) ASA 6: a declared brain- patient whose organs are being harvested. For emergent operations, add the letter E after the classification Mallampati Classification Grade 2 Sedation Plan Analgesia, Amnesia, Plan communicated to team members, Discussed options with patient/fam, Discussed risks with patient/fam The patient is an appropriate candidate to undergo the planned procedure, sedation, and anesthesia. The patient immediately re-assessed prior to indication. MAKI GARCIA MD FACP FAC CCDS Dec 13, 2019 10:03
--- NOTE | 2019-12-13 10:54 | OPERATIVE REPORT ---
DATE OF SERVICE: 12/13/19 INDICATIONS FOR PROCEDURE: The patient is an 84-year-old lady, who has sinus node dysfunction and has recently had a pacemaker implantation to treat episodes of marked bradycardia. She has had an implantable loop recorder implantation, which now is being explanted. Informed consent was obtained. DESCRIPTION OF PROCEDURE: She was brought to the cardiac catheterization laboratory. The left prepectoral area, site of previous implantable loop recorder implantation, was prepared and draped in the usual sterile fashion. Lidocaine 1% was used for local anesthesia. Sharp and blunt dissection was used to open the pocket and the device was removed. The incision used was a very small one (approximately 4 to 5 mm). The skin edges were closed using Dermabond and Steri-Strips. She tolerated the procedure well. Job ID: [id number] DocumentID: [id number] Dictated Date: 12/13/2019 08:58:02 Cook Pressure Date: 12/13/2019 10:53:53 Dictated By: MAKI GARCIA MD, MA, FACP, FACC, MTDD
== END 2019-12-13 09:28 | disposition home or self-care (01) ==
LOC: CATH 07:15
PROVIDERS: ATTEND Internal Medicine Cardiovascular Disease
DX: Z45.018 Encounter for adjustment and management of other part of cardiac pacemaker (principal); I77.4 Celiac artery compression syndrome; I49.3 Ventricular premature depolarization; I71.4 Abdominal aortic aneurysm, without rupture; I10 Essential (primary) hypertension; I35.0 Nonrheumatic aortic (valve) stenosis; I48.0 Paroxysmal atrial fibrillation; I49.5 Sick sinus syndrome; I73.9 Peripheral vascular disease, unspecified; I77.1 Stricture of artery; I44.60 Unspecified fascicular block; G47.33 Obstructive sleep apnea (adult) (pediatric); N39.0 Urinary tract infection, site not specified; N39.41 Urge incontinence; R55 Syncope and collapse; Z88.7 Allergy status to serum and vaccine; Z88.8 Allergy status to other drugs, medicaments and biological substances; Z99.89 Dependence on other enabling machines and devices; Z79.899 Other long term (current) drug therapy; Z79.01 Long term (current) use of anticoagulants; Z85.828 Personal history of other malignant neoplasm of skin; Z90.710 Acquired absence of both cervix and uterus
CPT/HCPCS: 33286

== ENCOUNTER 2019-12-26 10:17 | Emergency (ER) | payer MEDICARE, OTHER ==
[~2019-12-26] VITALS: Ht 172.7 cm; Wt 90.7 kg
[~2019-12-26 10:17] MED LIST changes: -LIDOCAINE 1% INJ 20 ML 20 ML VIAL ONE
[2019-12-26 10:51] VITALS: BP 173/81
== END 2019-12-26 10:51 | disposition home or self-care (01) ==
LOC: EDUNIT# 10:17 → ER 10:17
DX: S91.22 Laceration with foreign body of toe with damage to nail (principal); X58.XXXD Exposure to other specified factors, subsequent encounter

== ENCOUNTER → 2020-03-12 | Outpatient (CLI) | payer MEDICARE, OTHER ==
[~2020-03-12] MED LIST changes: -WARF5TAB PO; +WARF5TAB2 PO
--- NOTE | 2020-03-12 12:45 | Diagnostic Imaging Report ---
INDICATION: Screening. The current study was also evaluated with a Computer Aided Detection (CAD) system. 3-D Tomographic imaging was also performed. Comparison made with prior examination 03/01/2019, 03/08/2018, 02/26/2017. FINDINGS: There are scattered fibroglandular densities bilaterally. There are few unchanged nodular densities in the central left breast. There are benign type calcifications. There is no new dominant mass, spiculated lesion or suspicious calcification identified. Skin and nipples and axilla are unremarkable. IMPRESSION: Category 2 benign. ACR BI-RADS Category 2: Benign findings. Result letter will be mailed to the patient. Note: At least 10% of breast cancer is not imaged by mammography. Dictated by: Dictated on workstation # [id number]
== END ==
LOC: RAD 08:01
PROVIDERS: ATTEND Internal Medicine
DX: Z12.31 Encounter for screening mammogram for malignant neoplasm of breast (principal)
CPT/HCPCS: 77063; 77067

== ENCOUNTER → 2020-06-12 | Outpatient (CLI) | payer MEDICARE, OTHER | LOC: LABNPT 06:15 | PROVIDERS: ATTEND Internal Medicine | DX: J02.9 Acute pharyngitis, unspecified (principal); R50.9 Fever, unspecified; R05 Cough; R68.83 Chills (without fever); Z20.828 Contact with and (suspected) exposure to other viral communicable diseases | CPT/HCPCS: 87635 ==

== ENCOUNTER → 2020-10-29 | Outpatient (CLI) | payer MEDICARE, OTHER ==
[~2020-10-29] MED LIST changes: -LISI-556 PO; +LISI-729 PO
[2020-10-29 12:18] LABS: HEMOGLOBIN 10.4 g/dL (11.5-16.0); MEAN PLATELET VOLUME 11.6 fL (9.0-12.2); WHITE BLOOD COUNT 6.8 10^3/uL (4.3-11.0)
[2020-10-29 12:23] LABS: ALBUMIN 3.8 GM/DL (3.2-4.5); POTASSIUM 4.1 MMOL/L (3.6-5.0)
[2020-10-29 12:24] LABS: CALCIUM 8.4 MG/DL (8.5-10.1)
[2020-10-29 12:25] LABS: TOTAL PROTEIN 6.6 GM/DL (6.4-8.2)
[2020-10-29 12:27] LABS: BILIRUBIN,TOTAL 1.2 MG/DL (0.1-1.0)
[2020-10-29 12:29] LABS: CREATININE SERUM 1.24 MG/DL (0.60-1.30)
--- NOTE | 2020-10-29 13:50 | Diagnostic Imaging Report ---
PROCEDURE: CT abdomen and pelvis without contrast. TECHNIQUE: Multiple contiguous axial images were obtained through the abdomen and pelvis without the use of intravenous contrast. Auto Exposure Controls were utilized during the CT exam to meet ALARA standards for radiation dose reduction. INDICATION: Posterior left-sided pain accompanied by bloating and fatigue. Compared to 05/27/2014. FINDINGS: There is a small hiatal hernia chronic. There is a cyst in the right hepatic lobe chronic. There is no bile duct dilatation. Gallstones chronic. Spleen, adrenals and pancreas nonacute. The aorta is atherosclerotic but nonaneurysmal. There is an exophytic cyst off the lower pole of the right kidney chronic. There is no hydroureteronephrosis. There is no bowel obstruction. Tissue density nodule in the left groin measuring 4.0 x 3.0 is probably unopacified segment of herniated bowel. A right hemipelvic mixed density mass effect measuring 6.6 x 5.5 cm has developed. This may be ovarian, correlate with surgical history. The uterus in this patient was surgically absent on the comparison. The unopacified urinary bladder appeared normal. No ascites. No fluid collection and no free air. IMPRESSION: Limited by the lack of contrast owing to renal dysfunction. Right hemipelvic soft tissue density mass effect has developed. It is doubtfully reflective of matted loops of unopacified bowel. It is more likely a true soft tissue mass. If this patient cannot tolerate IV contrast consider a repeat scanning following delayed oral contrast administration. This would also be useful to confirm the findings in the left groin as hernia as opposed to a other soft tissue mass. Unobstructed urinary tracts. No bowel obstruction, perforation or abscess chronic cholelithiasis without bile duct dilatation. Dictated by: Dictated on workstation # [id number]
== END ==
LOC: RAD 12:00
PROVIDERS: ATTEND Nurse Practitioner Family
DX: R10.9 Unspecified abdominal pain (principal); R14.0 Abdominal distension (gaseous); R53.83 Other fatigue
CPT/HCPCS: 36415; 74176; 80053; 85027

== ENCOUNTER → 2020-10-31 | Outpatient (CLI) | payer MEDICARE, OTHER ==
[~2020-10-31] MED LIST changes: +CATHETER FLUSH 10 ML SYR IV PRN; +HOLD METFORMIN - RECEIVED CONTRAST 20 ML VIAL IV SCH; +IOHEXOL 350 MG/ML 100 ML (OMNIPAQUE 350) VIAL IV ONE; +NS 100 ML (IVPB) BAG IV ONE
[2020-10-31 09:09] LABS: HEMOGLOBIN 10.4 g/dL (11.5-16.0); MEAN PLATELET VOLUME 11.9 fL (9.0-12.2); WHITE BLOOD COUNT 5.6 10^3/uL (4.3-11.0)
[2020-10-31 09:31] LABS: ALBUMIN 3.8 GM/DL (3.2-4.5); CALCIUM 8.6 MG/DL (8.5-10.1); CREATININE SERUM 0.9 MG/DL (0.60-1.30); POTASSIUM 4.1 MMOL/L (3.6-5.0); TOTAL PROTEIN 6.7 GM/DL (6.4-8.2)
--- NOTE | 2020-10-31 10:38 | Diagnostic Imaging Report ---
PROCEDURE: CT abdomen and pelvis with contrast. TECHNIQUE: Multiple contiguous axial images were obtained through the abdomen and pelvis after administration of intravenous contrast. Auto Exposure Controls were utilized during the CT exam to meet ALARA standards for radiation dose reduction. All CT scans use one or more of the following dose optimizing techniques: automated exposure control, MA and/or KvP adjustment based on patient size and exam type or iterative reconstruction. INDICATION: Bloating, fatigue, left-sided pain. COMPARISON: 10/29/2020. FINDINGS: We again note a heterogeneous soft tissue-like mass effect in the right hemipelvis measuring 7 cm x 5.8 cm. This is suspicious for tumor and could be a primary ovarian or metastatic deposit. We note the lower pelvic bowel loops are thickened and hyperdense and there does appear to be some complex pelvic free fluid. A left inguinal hernia sac is again noted comprised of hyperdense tissue where there is some herniation of fat. It is unclear if there is any herniation of hollow viscus through this defect. This may be herniation of omental or peritoneal disease in the setting of metastasis. There is no resultant bowel, biliary, or urinary tract obstruction in this patient. Only a minute amount of pelvic free fluid and trace fluid along the upper right colic gutter is found. There is a cyst in the right hepatic lobe but no solid or suspect liver mass. There is a small hiatal hernia. The adrenal glands are negative. The spleen is normal. The pancreas is nonacute with a tiny cyst of 1.4 cm off its posterior body which is visualized on the remote CT of 2013 and is a chronic benign finding. There are some cysts in the right kidney. No solid or suspicious renal mass. There is no hydronephrosis. The aortoiliac vessels are patent and nonaneurysmal. No pneumatosis or free air. The urinary bladder has an unremarkable appearance. There is no suspicious lytic or sclerotic bony lesion. There are partially visualized old healed left rib deformities. The lung bases are nonacute. IMPRESSION: 1. Soft tissue mass in the right hemipelvis, suspicious for neoplasm. The lower pelvic bowel loops are thickened and hyperdense. There appears to be likely a pelvic peritoneal infiltration. Small amounts of complex intrapelvic free fluid may reflect a small amount of blood. There is a left inguinal hernia through which hyperdense material extends. No gas or obvious hollow viscus. This may be a nonobstructed infiltrated small bowel loop segment or herniation of peritoneal/omental tumor. For tissue confirmation, surgical exploration of that hernia sac would likely be the easiest route. I do not see a good candidate for percutaneous needle sampling. 2. Chronic-appearing pancreatic cyst, presumptively benign. Benign hepatorenal cysts, chronic. No lymphadenopathy. Trace free fluid appears complex and may be hemorrhagic. No contrast extravasation or evidence for active bleeding. 3. Small hiatal hernia. There is no bowel, biliary, or urinary tract obstruction and no suspicious bony lesion. 4. While findings are better characterized with contrast, no substantial change when correlated with the CT of 10/29/2020 is seen. Dictated by: Dictated on workstation # [id number]
== END ==
LOC: RAD 09:45
PROVIDERS: ATTEND Nurse Practitioner Family
DX: K40.90 Unilateral inguinal hernia, without obstruction or gangrene, not specified as recurrent (principal); K44.9 Diaphragmatic hernia without obstruction or gangrene; K86.2 Cyst of pancreas; R19.00 Intra-abdominal and pelvic swelling, mass and lump, unspecified site
CPT/HCPCS: 36415; 74177; 80053; 85027

== ENCOUNTER → 2021-04-03 | Outpatient (CLI) | payer MEDICARE, OTHER ==
[~2021-04-03] MED LIST changes: -CATHETER FLUSH 10 ML SYR IV PRN; -HOLD METFORMIN - RECEIVED CONTRAST 20 ML VIAL IV SCH; -IOHEXOL 350 MG/ML 100 ML (OMNIPAQUE 350) VIAL IV ONE; -NS 100 ML (IVPB) BAG IV ONE; -SULF1TAB35 PO; +SULF1TAB38 PO
[2021-04-03 14:45] LABS: ABSOLUTE RETIC # 51 10e9/uL (24-90); BASOPHILS % (AUTO) 1 % (0-10); EOSINOPHILS # (AUTO) 0.2 10^3/uL (0.0-0.3); EOSINOPHILS % (AUTO) 5 % (0-10); HEMATOCRIT 41 % (35-52); HEMOGLOBIN 13.3 g/dL (11.5-16.0); LYMPHOCYTES # (AUTO) 1.5 10^3/uL (1.0-4.0); LYMPHOCYTES % (AUTO) 33 % (12-44); MEAN CORPUSCULAR HEMOGLOBIN 29 pg (25-34); MEAN CORPUSCULAR HGB CONC 32 g/dL (32-36); MEAN CORPUSCULAR VOLUME 89 fL (80-99); MEAN PLATELET VOLUME 11.9 fL (9.0-12.2); MONOCYTES # (AUTO) 0.5 10^3/uL (0.0-1.0); MONOCYTES % (AUTO) 12 % (0-12); NEUTROPHILS # (AUTO) 2.3 10^3/uL (1.8-7.8); NEUTROPHILS % (AUTO) 50 % (42-75); PLATELET COUNT 180 10^3/uL (130-400); RETICULOCYTE % 1.11 % (0.50-2.40); WHITE BLOOD COUNT 4.7 10^3/uL (4.3-11.0)
[2021-04-03 14:59] LABS: EOSINOPHILS % (MANUAL) 5 %; LYMPHOCYTES % (MANUAL) 27 %; MONOCYTES % (MANUAL) 9 %; NEUTROPHILS % (MANUAL) 59 %; RBC MORPH NORMAL
== END ==
LOC: LAB 14:14
PROVIDERS: ATTEND Internal Medicine
DX: D70.9 Neutropenia, unspecified (principal); D64.9 Anemia, unspecified
CPT/HCPCS: 36415; 85007; 85027; 85045; 85055

== ENCOUNTER → 2021-04-05 | Outpatient (CLI) | payer MEDICARE, OTHER ==
--- NOTE | 2021-04-05 13:39 | Diagnostic Imaging Report ---
Digital mammogram bilateral screening This study was compared to the prior exams of 03/12/2020, 03/02/2019 and 03/08/2018. At this time, there are no current complaints. The fibroglandular tissue in both breasts is heterogeneously dense. This does limit the sensitivity of this exam. On the craniocaudad view of the right breast in the mid lateral aspect of the breast approximally 5 cm from the nipple, there is a 9 mm oval asymmetry. This finding seems to persist on the tomographic images but is not clearly evident on the MLO view. Consequently, this may be secondary to fibroglandular tissue alone. Even so, I would recommend that a compression view of this area be obtained in the CC projection as well as a true lateral view for further study. Ultrasound would also be recommended. The left breast is unchanged. The nodular asymmetries in the left retroareolar region seen previously seems stable. IMPRESSION: 1. Additional mammographic views and ultrasound of the right breast will be recommended for further study. ACR BI-RADS Category 0: Incomplete. (Needs additional imaging evaluation). Result letter will be mailed to the patient. Note: At least 10% of breast cancer is not imaged by mammography. Dictated by: Dictated on workstation # [id number]
== END ==
LOC: RAD 10:45
PROVIDERS: ATTEND Nurse Practitioner Family
DX: Z12.31 Encounter for screening mammogram for malignant neoplasm of breast (principal)
CPT/HCPCS: 77063; 77067

== ENCOUNTER → 2021-04-22 | Outpatient (CLI) | payer MEDICARE, OTHER | LOC: WOUNDCARE 12:33 | PROVIDERS: ATTEND Surgery | DX: S80.11XA Contusion of right lower leg, initial encounter (principal); G90.521 Complex regional pain syndrome I of right lower limb; X58.XXXA Exposure to other specified factors, initial encounter | CPT/HCPCS: 99212 ==

== ENCOUNTER → 2021-04-25 | Outpatient (CLI) | payer MEDICARE, OTHER ==
--- NOTE | 2021-04-25 22:18 | Diagnostic Imaging Report ---
INDICATION: Right breast density. Patient presents for additional views. COMPARISON: Screening study from 04/05/2021. EXAMINATION: Unilateral right 2D and 3D diagnostic mammography was performed. This includes spot compression CC, rolled CC and conventional 90 degrees lateral views. FINDINGS: There is a persistent nodular density in the upper and slightly outer right breast 5-6 cm from the nipple. Further evaluation with ultrasound is recommended. No other abnormalities are seen. IMPRESSION: Additional views show persistent nodular density in the upper and slightly outer right breast 5-6 cm from the nipple. Further evaluation with ultrasound is recommended and will be performed today. ACR BI-RADS Category 0: Incomplete. (Needs additional imaging evaluation). Result letter will be mailed to the patient. Note: At least 10% of breast cancer is not imaged by mammography. Dictated by: Dictated on workstation # [id number]
--- NOTE | 2021-04-25 22:22 | Diagnostic Imaging Report ---
INDICATION: Right breast density. COMPARISON: Correlation is made with diagnostic mammogram from earlier the same day and screening mammogram from 04/05/2021. EXAMINATION: Sonographic interrogation of the upper slightly outer right breast was performed. FINDINGS: There is a simple cyst at the 11 o'clock location, 5-6 cm from the nipple. This measures 8 mm x 9 mm x 7 mm. This likely accounts for the mammographic density. No internal vascularity is seen. IMPRESSION: Simple cyst in the 11 o'clock location of the right breast corresponding to the mammographic density. The patient may return to routine annual screening mammography. ACR BI-RADS Category 2: Benign findings. Result letter will be mailed to the patient. Note: At least 10% of breast cancer is not imaged by mammography. Dictated by: Dictated on workstation # [id number]
== END ==
LOC: RAD 12:45
PROVIDERS: ATTEND Nurse Practitioner Family
DX: N60.01 Solitary cyst of right breast (principal)
CPT/HCPCS: 76642; 77065; G0279

== ENCOUNTER → 2021-06-26 | Outpatient (CLI) | payer MEDICARE, OTHER ==
[~2021-06-26] MED LIST changes: -LISI-729 PO; +LISI5TAB20 PO; +MULT-1054 PO; -MULT-985 PO
--- NOTE | 2021-06-26 14:00 | Diagnostic Imaging Report ---
PROCEDURE: US venous upper extremity left. TECHNIQUE: Multiple realtime grayscale images were obtained of left upper extremity in various projections. Additional spectral analysis and color Doppler duplex images were also obtained. INDICATION: Left upper extremity pain. The left internal jugular vein as well as left subclavian and axillary veins are widely patent. Brachial vein is patent. The basilic, cephalic, radial and ulnar veins are patent. There is a complex fluid collection in the antecubital fossa measuring 1.4 x 1.4 x 1.0 cm without internal vascularity. This is consistent with a hematoma. IMPRESSION: 1. No evidence of left upper extremity DVT. 2. Probable hematoma in the antecubital fossa. Dictated by: Dictated on workstation # [id number]
== END ==
LOC: RAD 12:44
PROVIDERS: ATTEND Nurse Practitioner Family
DX: M79.622 Pain in left upper arm (principal)

== ENCOUNTER → 2021-07-24 | Outpatient (CLI) | payer MEDICARE, OTHER ==
--- NOTE | 2021-07-24 11:23 | Diagnostic Imaging Report ---
PROCEDURE: CT abdomen and pelvis without contrast. TECHNIQUE: Multiple contiguous axial images were obtained through the abdomen and pelvis without the use of intravenous contrast. Auto Exposure Controls were utilized during the CT exam to meet ALARA standards for radiation dose reduction. INDICATION: Urinary tract infections. Correlation is made with prior CT from 10/31/2020. Imaging through lung bases demonstrates a chronic lower left rib fracture deformity with some underlying parenchymal scarring in the left lower lobe. Patient does have a moderate-sized hiatal hernia. Right hepatic lobe low-attenuation lesion appears stable and consistent with a cyst. There are numerous stones in the gallbladder. No biliary ductal dilatation is seen. The cystic lesion extending posteriorly from the pancreatic body appears stable. The pancreas is unremarkable. No adrenal mass is detected. Right-sided renal cysts appears stable. No renal calculi or hydronephrosis is identified. Aorta is calcified but nonaneurysmal. Small and large bowel loops appear to be of normal caliber. No obstructive pattern is seen. There is postsurgical changes in the pelvis. Previously noted mass appears to have been surgically resected. There is a fat-containing left inguinal hernia. Portion of the sigmoid colon does partially extend into the left inguinal hernia but there is no evidence of strangulation or obstruction. Previously noted hyperdense fluid is no longer visualized. There is no free fluid or fluid collection identified. No definite abdominal or pelvic lymphadenopathy is detected. IMPRESSION: 1. Surgical resection of previously noted pelvic mass. No residual or recurrent mass or evidence of lymphadenopathy in the abdomen or pelvis is identified. 2. Cholelithiasis. 3. Hepatic and renal cysts. 4. Left inguinal hernia containing a portion of the sigmoid colon. No strangulation or bowel obstruction is identified. Dictated by: Dictated on workstation # [id number]
== END ==
LOC: RAD 10:45
PROVIDERS: ATTEND Urology
DX: K80.20 Calculus of gallbladder without cholecystitis without obstruction (principal); N39.0 Urinary tract infection, site not specified; K76.89 Other specified diseases of liver; N28.1 Cyst of kidney, acquired; K40.90 Unilateral inguinal hernia, without obstruction or gangrene, not specified as recurrent; Z98.890 Other specified postprocedural states
CPT/HCPCS: 74176

== ENCOUNTER → 2022-05-13 | Outpatient (CLI) | payer MEDICARE, OTHER ==
--- NOTE | 2022-05-13 16:13 | Diagnostic Imaging Report ---
INDICATION: Routine screening. COMPARISON: 04/05/2021 and 03/12/2020. TECHNIQUE: 2D and 3D bilateral screening mammography was performed with CAD. FINDINGS: Both breasts are heterogeneously dense, limiting the sensitivity of mammography. The breast parenchymal pattern is stable. No spiculated mass or malignant-appearing microcalcifications are seen. There are benign calcifications present. The axillae are unremarkable. IMPRESSION: No mammographic features suspicious for malignancy are identified. ACR BI-RADS Category 2: Benign findings. Result letter will be mailed to the patient. Note: At least 10% of breast cancer is not imaged by mammography. Dictated by: Dictated on workstation # [id number]
== END ==
LOC: RAD 09:46
PROVIDERS: ATTEND Internal Medicine
DX: Z12.31 Encounter for screening mammogram for malignant neoplasm of breast (principal)
CPT/HCPCS: 77063; 77067